=== PATIENT | female | born 1985 | race Caucasian/White ===

== ENCOUNTER 2023-08-17 17:51 | Outpatient (REF) | payer MEDICAID, SELFPAY ==
[2023-08-20 03:28] LABS: HPV mRNA E6/E7 rflx Not Detected (Not Detected)
== END 2023-08-17 17:52 | disposition home or self-care (01) ==
LOC: HO.CHCLNP 17:51
PROVIDERS: Visit Provider Advanced Practice Midwife
DX: Z01.419 Encounter for gynecological examination (general) (routine) without abnormal findings (principal)
CPT/HCPCS: 87624; 88142

== ENCOUNTER 2024-12-13 12:38 | Outpatient (REF) | payer MEDICAID, SELFPAY ==
[2024-12-13 14:33] LABS: MANUAL DIFF FLAG NO
[2024-12-13 15:25] LABS: Basophils Percent Auto 0.6 % (0-2); Eosinophils Absolute Auto 0.1 X10*3/uL (0.0-0.4); Eosinophils Percent Auto 1.7 % (0-4); Hemoglobin 16.7 g/dl (12.0-16.0); Imm Gran Abs Auto 0.03 X10*3/uL (0.00-0.03); Imm Gran Pct Auto 0.4 % (0.0-0.4); Lymphocytes Absolute Auto 1.9 X10*3/uL (1.2-4.9); Lymphocytes Percent Auto 26.6 % (20-40); Mean Corpuscular HGB Conc 35.5 g/dl (31.0-35.0); Mean Corpuscular Hemoglobin 31.5 pg (27.0-33.0); Mean Corpuscular Volume 88.7 fL (80.0-98.0); Mean Platelet Volume 10.9 fL (9.4-12.3); Monocytes Absolute Auto 0.5 X10*3/uL (0.1-1.2); Monocytes Percent Auto 6.7 % (2-11); Neutrophils Absolute Auto 4.6 x10*3/uL (2.0-8.3); Platelet Count 185 X10*3/uL (160-400); White Blood Count 7.1 X10*3/uL (4.8-10.8)
[2024-12-13 16:20] LABS: Albumin Level 3.9 g/dL (3.5-5.0); Alkaline Phosphatase 100 U/L (39-117); Anion Gap 10 (12-20); Aspartate Amino Transferase 94 U/L (5-31); Bilirubin Total 0.8 mg/dL (0.0-1.0); Blood Urea Nitrogen 6 mg/dL (9-16); Calcium 8.9 mg/dL (8.4-10.2); Carbon Dioxide 28 mmol/L (22-29); Chloride 104 mmol/L (96-108); Estimated Glomerular Filt Rate > 60; Glucose Random 298 mg/dL (60-115); Potassium 4.9 mmol/L (3.3-5.1); Sodium 137 mmol/L (135-145); Total Protein 7.3 g/dL (6.5-8.0)
[2024-12-13 16:32] LABS: Alanine Aminotransferase 112 U/L (0-31)
== END 2024-12-13 12:39 | disposition home or self-care (01) ==
LOC: HO.LAB 12:38
PROVIDERS: PCP Registered Nurse; Visit Provider Nurse Practitioner
DX: R11.2 Nausea with vomiting, unspecified (principal); K21.9 Gastro-esophageal reflux disease without esophagitis
CPT/HCPCS: 36415; 80053; 85025; 99212

== ENCOUNTER 2024-12-13 12:38 | Outpatient (AMB) | payer MEDICAID, SELFPAY ==
--- NOTE | 2024-12-13 12:51 | MHC.OFFVIS ---
Vital Signs 12/13/24 12:52 Height 5 ft 2 in Weight 185 lb 3.013 oz BMI 33.9 BP 119/76 Blood Pressure Location Rt brachial Position Sitting Pulse 58 Intake Visit Reasons: Gastroesophageal reflux disease (GERD) Intake Note: Patient in office today as a new patient for GERD. CC: Patient c/o indigestions, burping with foul smell, acid reflux for years, and nausea. Denies other GI symptoms today. Generation Technician Required: No Accompanied by: Self / Same As Patient Allergies Heparin Analogues [Heparin Agents] Allergy (Intermediate, Unverified 08/18/23 08:05) HIVES codeine [CODEINE] Allergy (Mild, Unverified 08/18/23 08:05) HIVES heparin Allergy (Unknown, Uncoded 08/18/23 08:05) hives tylenol with codeine Allergy (Unknown, Uncoded 08/18/23 08:05) hives HPI HPI Gastroesophageal reflux disease (GERD): Details: 39-year-old female here for initial evaluation of GERD. She is referred by [facility]. PMX Obesity Asthma Hepatitis C and opioid use disorder Anxiety/PTSD GERD Migraines Neuropathic pain Smoker Goiter * SURGICAL HISTORY * ALLERGIES Heparin - hives Tylenol with codeine - hives * MEDITECH LABS: none US of ABDOMEN from [facility] ESULT: US RUQ US RUQ Hx of Present Illness: abdominal pain nausea diarrhea; Reason: Other:; Abdominal Pain; Clinical Question(s): Cholecystitis COMPARISON: None. FINDINGS: Liver: Diffusely echogenic parenchyma. Liver is difficult to penetrate limiting evaluation for focal hepatic lesion. Focal fatty sparing is noted in the gallbladder fossa. Smooth hepatic contour. Main portal vein patent with normal hepatopetal direction of flow. Gallbladder: Mobile gallstone measuring 1.7 cm. Normal wall thickness. No pericholecystic fluid. Negative Lemos sign. Biliary Tree: No intrahepatic or extrahepatic bile duct dilation is identified. Common duct measures: 0.6 cm. Pancreas: No abnormality in the visualized portions of the pancreas. Right kidney: 12.0 cm in length. Normal parenchymal echotexture and thickness. No hydronephrosis, stone or mass. IMPRESSION: Echogenic liver likely representing hepatic steatosis. Cholelithiasis without acute cholecystitis. I have personally reviewed the images and I agree with this report. WSN: [id number] Ordering Physician: Yahaira Weathers TODAY'S VISIT She has had years of sever and sudden onset of nausea and at times all day vomiting. She also will have severe sulfur burps and farts and then she will have severe all day N/V. She also has some HB issues but the other syndeome will occur unevenly and unpredictably. She will have severe bout atleast twice a month. She is currently on pantoprazole and it has helped but she still will feels acid coming up my throat and she will have tyo take 3-4 of the pantoprazole. At times she has presented to the ER for this and they would just have her zofran with some relief. This all DID start when she was with her son 8 years ago. The sx have worsened over the past 2 years. She denies any abd pain or CIC/diarrhea. Her brother and father get the sulfur burps as well. She is unsure how they handle this as they do not speak much. Her mother and sister both have had choles and the patient had and US at [facility] that showed a 1.7cm gallstone. Will give zofran as temp measure, continues pantoprazole. Ordering HIDA, GES, barium swallow and HP stool along with basic labs. ROV next available. [facility] Surgical History History of section Family History Paternal Grandfather Lung cancer Prostate cancer Paternal Grandmother Lung cancer Paternal Uncle Prostate cancer Paternal Uncle Lung cancer Social History Alcohol intake: current Alcohol intake frequency: holidays/special occasions only Alcohol type: wine Patient Tobacco Use Status: Current everyday Tobacco user Cigarette Packs Per Day: 1 Substance Use Type: Marijuana Review of Systems Const Denies fatigue, Denies fever(s), Reports headache(s), Denies night sweats, Denies poor appetite and Denies weight loss ENT Reports Normal hearing present, Denies dental pain, Denies dysphagia, Reports headache(s), Denies hearing loss, Denies mouth pain, Denies odynophagia, Denies throat swelling, Denies tongue swelling and Reports other (Dentition adequate) Card Reports no additional complaints Resp Reports no additional complaints GI Details: Denies abdominal pain, Reports belching, Denies melena, Denies bloating, Denies hematochezia, Denies constipation, Denies GI cramping, Denies dysphagia, Denies excessive flatus, Denies early satiety, Reports heartburn, Denies diarrhea, Reports nausea, Denies odynophagia, Reports vomiting and Denies hematemesis Skin/Breast Denies pruritus, Denies lesions, Denies rash and Denies jaundice Neuro Reports Normal hearing present, Denies Abnormal speech present and Reports headache(s) Psych Reports anxiety Endo Denies fatigue Aller/Immun Denies throat swelling and Denies tongue swelling Physical Exam Vital Signs: Last Vital Signs Pulse 58 12/13/24 12:52 BP 119/76 12/13/24 12:52 BMI result Body Mass Index 33.9 Const General: cooperative, no acute distress, well developed and well groomed Nutritional Appearance: well nourished and obese Orientation/consciousness: oriented to person, oriented to place and oriented to time Limitations: No language barrier HEENT Head: Yes normocephalic and Yes atraumatic Eyes General: appearance normal, both eyes and all related structures Pupils: Equal, round and reactive pupils present Neck Neck: Yes normal visual inspection and Yes no lymphadenopathy Thyroid: diffusely enlarged Resp Effort & Inspection: normal respiratory effort and able to speak in complete sentences Auscultation: clear to auscultation bilaterally Cardio Rate: regular rate Rhythm: regular rhythm Heart sounds: Normal, physiologic split S2 sound present Peripheral pulses: radial pulses present and posterior tibial pulses present GI Inspection: No distended, Yes Abdominal panniculus present, Yes obesity and Yes striae Palpation (GI): Soft to palpation, Tenderness to palpation present (GI) in the RUQ, no guarding, not rigid and No hepatosplenomegaly present Percussion: Yes normal to percussion Auscultation: normal bowel sounds Rectal Exam - Female: deferred Skin General skin exam: no rashes or lesions noted, turgor normal, skin not dry, no jaundice, No spider nevi and no striae Rashes: no rashes Nails: normal Neuro General: oriented to person, oriented to place and oriented to time Cranial nerves: Yes Equal, round and reactive pupils present and Yes Normal hearing present Speech: No Abnormal speech present Extrem General: Yes normal to inspection, No clubbing, No cyanosis and No edema Psych Appearance: grossly normal and well kempt Mental Status: mental status grossly normal Speech and movement: Normal speech and movement present Affect: normal affect Attitude: cooperative Thought process: Normal thought process present and not confabulating Thought content: Normal thought content present Insight: Limited insight present (Psych) Judgement: Limited judgement present (Psych) Assessment & Plan Assessment & Plan (1) GERD (gastroesophageal reflux disease): Code(s): K21.9 - Gastro-esophageal reflux disease without esophagitis Category: Medical (2) Nausea and vomiting: Code(s): R11.2 - Nausea with vomiting, unspecified Category: Medical Plan She has had years of sever and sudden onset of nausea and at times all day vomiting. She also will have severe sulfur burps and farts and then she will have severe all day N/V. She also has some HB issues but the other syndeome will occur unevenly and unpredictably. She will have severe bout atleast twice a month. She is currently on pantoprazole and it has helped but she still will feels acid coming up my throat and she will have tyo take 3-4 of the pantoprazole. At times she has presented to the ER for this and they would just have her zofran with some relief. This all DID start when she was with her son 8 years ago. The sx have worsened over the past 2 years. She denies any abd pain or CIC/diarrhea. Her brother and father get the sulfur burps as well. She is unsure how they handle this as they do not speak much. Her mother and sister both have had choles and the patient had and US at [facility] that showed a 1.7cm gallstone. Will give zofran as temp measure, continues pantoprazole. Ordering HIDA, GES, barium swallow and HP stool along with basic labs. ROV next available. Orders: Orders Complete Blood Count Auto Diff Today K21.9 - Gastro-esophageal reflux disease without esophagitis, R11.2 - Nausea with vomiting, unspecified Comprehensive Met. Panel Today K21.9 - Gastro-esophageal reflux disease without esophagitis, R11.2 - Nausea with vomiting, unspecified NM hepatobiliary w pharm Today K21.9 - Gastro-esophageal reflux disease without esophagitis, R11.2 - Nausea with vomiting, unspecified NM gastric emptying study Today K21.9 - Gastro-esophageal reflux disease without esophagitis, R11.2 - Nausea with vomiting, unspecified FL barium swallow Today K21.9 - Gastro-esophageal reflux disease without esophagitis, R11.2 - Nausea with vomiting, unspecified H pylori Ag Stool Today K21.9 - Gastro-esophageal reflux disease without esophagitis, R11.2 - Nausea with vomiting, unspecified Medications: New ondansetron 4 mg PO BID-TID PRN 14 tabs 0RF nausea and vomiting R11.2 - Nausea with vomiting, unspecified Coding Level of Care Code New Pt Level 3 (52264) Diagnoses GERD (gastroesophageal reflux disease) K21.9 Nausea and vomiting R11.2
[2024-12-13 12:52] VITALS: BP 119/76; PULSE 58; BMI 33.9
--- OUTSIDE RECORDS SUMMARY | 2024-12-13 14:56 | XMS_ITS | Encounter Summary ---
Author Organization [employer] Address [address] [place] [address] [address] [place] [address] Care Team Providers Care Supervisory Air Intercept Controller Name Role Phone Irish Sepulveda Primary Care Provider Encounter Details Date Type Department Care Team ([facility] st Contact Info) Description 12/22/2023 Orders Only [facility] [address] [place], [place] [phone] Irish Sepulveda FNP [address] [place] [address] Gastroesophageal reflux disease, unspecified whether esophagitis present Social History Tobacco Use Types Packs/Day Years Used Date Smoking Tobacco: Every Day Cigarettes Smokeless Tobacco: Former Alcohol Use Standard Drinks/Week Comments Not Asked 0 (1 standard drink = 0.6 oz pur e alcohol) Depression Answer Date Recorded Patient Health Questionnaire-9 Score 10 07/30/2023 Patient Health Questionnaire-9 Score 10 07/30/2023 Last PHQ-9: Questionnaire Data Not on file 1 09/29/2022 Housing Stability Answer Date Recorded What is your housing situation today? I have gabriel stephens 07/31/[address] you li ve. Do you have problems with any of the following? Pests such as bugs, ants, or mice;Mold;Water leaks 07/31/2023 Food Insecurity Answer Date Recorded Within the past 12 months, y ou worried that your food would run out before you got money to buy more: Sometimes True 2022 Within the past 12 months,th e food you bought just didn't last and you didn't have enough money to get more: Sometimes True 07/30/2023 Transportation Answer Date Recorded In the past 12 months, has l ack of transportation kept you from medical appts, meetings, work or from getting things needed for daily living? Yes, it has kept me from medical appointments or getting medications. 07/31/2023 Utilities Answer Date Recorded In the past 12 months, has t he electric, gas, oil or water company threatened to shut off services in your home? I am not sure 07/30/2023 Depression Answer Date Recorded Patient Health Questionnaire-2 Score 2 07/30/2023 Comments No Sex and Gender Information Value Date Recorded Sex Assigned at Female 07/20/2022 10:31 AM EDT Legal Sex Female 10:31 AM EDT Gender Identity Female 07/20/2022 10:31 AM EDT Sexual Orientation Straight 07/20/2022 10 :31 AM EDT documented as of this encounter Plan of Treatment Not on file documented as of this encounter Visit Diagnoses Diagnosis Gastroesophageal reflux disease, unspecified whether esophagitis present documented in this encounter Additional Health Concerns Assessment Noted Time PHQ-9 Depression Total Score: 10 023 11:21 AM EST documented as of this encounter Care Teams Supervisory Air Intercept Controller Relationship Specialty Start Date End Date Irish Sepulveda FNP [address] [place] [address] PCP - General Family Medicine 11/12/21 documented as of this encounter
--- OUTSIDE RECORDS SUMMARY | 2024-12-13 14:56 | XMS_ITS | Encounter Summary ---
Author Organization [employer] Address [address] [place] [address] [address] [address] Care Team Providers Care Drying And Winding Supervisor Name Role Phone Irish Sepulveda Primary Care Provider [phone] Encounter Details Date Type Department Care Team ([facility] st Contact Info) Description 03/11/2023 Orders Only [facility] MEDICINE [address] [place], [place] [phone] Marimar Bae LPN Social History Tobacco Use Types Packs/Day Years Used Date Smoking Tobacco: Never Assessed Comments Unknown Sex and Gender Information Value Date Recorded Sex Assigned at Female 07/20/2022 10:31 AM EDT Legal Sex Female 10:31 AM EDT Gender Identity Female 07/20/2022 10:31 AM EDT Sexual Orientation Straight 07/20/2022 10 :31 AM EDT documented as of this encounter Plan of Treatment Not on file documented as of this encounter Visit Diagnoses Not on filedocumented in this encounter Care Teams Drying And Winding Supervisor Relationship Specialty Start Date End Date Irish Sepulveda FNP [address] [place] [address] PCP - General Family Medicine 11/12/21 documented as of this encounter
--- OUTSIDE RECORDS SUMMARY | 2024-12-13 14:56 | XMS_ITS | Encounter Summary ---
Author Organization [employer] Address [address] [facility] 7t [place] [address] Care Team Providers Care Toxicologist Name Role Phone Irish Sepulveda JANI Primary Care Provider [phone] Encounter Details Date Type Department Care Team ([facility] st Contact Info) Description 12/01/2024 Population Health Risk Score [facility] ([facility]) Department [address] [place] [phone] Provider, Population Health Generic Social History Tobacco Use Types Packs/Day Years Used Date Smoking Tobacco: Every Day Cigarettes Passive Smoke Exposure: Current Smokeless Tobacco: Former Alcohol Use Standard Drinks/Week Comments Not Asked 0 (1 standard drink = 0.6 oz pur e alcohol) Depression Answer Date Recorded Patient Health Questionnaire-9 Score 14 07/20/2024 Patient Health Questionnaire-9 Score 14 07/20/2024 Last PHQ-9: Questionnaire Data Not on file 1 Housing Stability Answer Date Recorded What is [...] Answer Date Recorded Patient Health Questionnaire-2 Score 3 07/20/2024 Comments No Sex and Gender Information Value Date Recorded Sex Assigned at Female 07/20/2022 10:31 AM EDT Legal Sex Female 10:31 AM EDT Gender Identity Female 07/20/2022 10:31 AM EDT Sexual Orientation Straight 07/20/2022 10 :31 AM EDT documented as of this encounter Plan of Treatment Not on file documented as of this encounter Visit Diagnoses Not on filedocumented in this encounter Additional Health Concerns Assessment Noted Time PHQ-9 Depression Total Score: 14 024 1:30 PM EDT documented as of this encounter Care Teams Toxicologist Relationship Specialty Start Date End Date Irish Sepulveda FNP [address] [place] [address] PCP - General Family Medicine 11/12/21 documented as of this encounter
--- OUTSIDE RECORDS SUMMARY | 2024-12-13 14:56 | XMS_ITS | Encounter Summary ---
Author Organization [employer] Address [address] [place] [address] Care Team Providers Care Inpatient Services Rn Name Role Phone Irish Sepulveda Primary Care Provider [phone] Reason for Visit * Reason Onset Date Comments Referral 02/16/2024 Encounter Details Date Type Department Care Team ([facility] st Contact Info) Description 02/16/2024 Telephone [facility] MEDICINE [address] [place] [address] Irish Sepulveda FNP [address] [place] [address] Referral Social History Tobacco Use Types Packs/Day Years [...] is your housing situation today? I have gabrielrand stephens 07/31/[address] you [...] AM EDT documented as of this encounter Miscellaneous Notes * Telephone Encounter - Wing Carmelita RN - 02/17/2024 11:48 AM EDT Tc to pt regarding gastro referral, unable to reach pt. Left message for pt to call back. * Telephone Encounter - Teddy Roque - 02/16/2024 9:09 AM EDT Tc from pt requesting a [employer] referral to have gallbladder removed. Pt had an ED visit2 years ago where she was diagnosed with gallstones, from there pt was referred to gastro to have agallbladder removal but pt hesitated to follow through. Due to some recent concerns pt is now re considering gallbladder removal. If any question please contact pt at [phone]. documented in this encounter Plan of Treatment Not on file documented as of this encounter Visit Diagnoses Not on filedocumented in this encounter Additional Health Concerns Assessment Noted Time PHQ-9 Depression Total Score: 10 023 11:21 AM EST documented as of this encounter Care Teams Inpatient Services Rn Relationship Specialty Start Date End Date Irish Sepulveda FNP [address] [place] [address] PCP - General Family Medicine 11/12/21 documented as of this encounter
--- OUTSIDE RECORDS SUMMARY | 2024-12-13 14:56 | XMS_ITS | Encounter Summary ---
Author Organization [employer] Address [address] [place] [address] Care Team Providers Care Juice Standardizer Name Role Phone Irish Sepulveda Primary Care Provider Reason for Visit * Reason Comments Med Refill Encounter Details Date Type Department Care Team ([facility] st Contact Info) Description 11/30/2022 Refill [facility] MEDICINE [address] [place] [address] Irish Sepulveda FNP [address] [place] [address] Gastroesophageal reflux disease, unspecified whether esophagitis present [...] whether esophagitis present documented in this encounter Care Teams Juice Standardizer Relationship Specialty Start Date End Date Irish Sepulveda FNP [address] [place] [address] PCP - General Family Medicine 11/12/21 documented as of this encounter
--- OUTSIDE RECORDS SUMMARY | 2024-12-13 14:56 | XMS_ITS | Encounter Summary ---
Author Organization [employer] Address [address] [place] [address] [address] Care Team Providers Care Materials Scientist Name Role Phone Irish Sepulveda Primary Care Provider [phone] Encounter Details Date Type Department Care Team ([facility] st Contact Info) Description 01/27/2023 Orders Only [facility] MEDICINE [address] [place], [place] [phone] Marimar Bae LPN Social History Tobacco Use [...] on filedocumented in this encounter Care Teams Materials Scientist Relationship Specialty Start Date End Date Irish Sepulveda FNP [address] [place] [address] PCP - General Family Medicine 11/12/21 documented as of this encounter
--- OUTSIDE RECORDS SUMMARY | 2024-12-13 14:56 | XMS_ITS | Encounter Summary ---
Author Organization [employer] Address [address] [place] [address] 7[place], [place] [address] Care Team Providers Care Television Program Director Name Role Phone Irish Sepulveda Primary Care Provider [phone] Reason for Visit * Reason Onset Date Comments US Order 06/21/2024 Encounter Details Date Type Department Care Team ([facility] Contact Info) Description 06/21/2024 Telephone [facility] MEDICINE [address] [place] [address] Irish Sepulveda FNP [address] [place] [address] US Order Social History Tobacco Use Types Packs/Day Years [...] encounter Miscellaneous Notes * Telephone Encounter - Sandra Ma - 06/22/2024 10:59 AM EDT Tc from Mansi with [facility] calling in regards US order of the abdomen. Stating it is missing pcp signature. They're requesting for a order to be resent with signature. If any questions you can contact Mansi at [phone]. * Telephone Encounter - Teddy Roque - 06/21/2024 10:03 AM EDT Tc from Edilberto with [facility] calling in regards US order of the abdomen stating it is missing pcp signature. They're requesting for a order to be resent with signature. If any questions you can contact Edilberto at [phone]. documented in this encounter Plan of Treatment Not on file documented as of this encounter Visit Diagnoses Not on filedocumented in this encounter Additional Health Concerns Assessment Noted Time PHQ-9 Depression Total Score: 10 023 11:21 AM EST documented as of this encounter Care Teams Television Program Director Relationship Specialty Start Date End Date Irish Sepulveda FNP [address] [place] [address] PCP - General Family Medicine 11/12/21 documented as of this encounter
--- OUTSIDE RECORDS SUMMARY | 2024-12-13 14:56 | XMS_ITS | Encounter Summary ---
Author Organization [employer] Address [address] [place] [address] Care Team Providers Care Aerial Crop Duster Name Role Phone Irish Sepulveda Primary Care Provider [phone] Reason for Visit * Reason Onset Date Comments Appointment Request 05/05/2024 Encounter Details Date Type Department Care Team ([facility] Contact Info) Description 05/05/2024 Telephone [facility] MEDICINE [address] [place] [address] Irish Sepulveda FNP [address] [place] [address] Appointment Request Social History Tobacco Use Types Packs/Day Years [...] Telephone Encounter - Wing Carmelita RN - 05/08/2024 3:28 PM EDT Tc to pt to reschedule same day appt. Unable to reach pt, left message for pt to call [facility] office. * Telephone Encounter - Teddy Roque - 05/05/2024 9:50 AM EDT Tc from pt requesting to reschedule todays sick onsite visit. Please contact pt at [phone]. documented in this encounter Plan of Treatment Not on file documented as of this encounter Visit Diagnoses Not on filedocumented in this encounter Additional Health Concerns Assessment Noted Time PHQ-9 Depression Total Score: 10 023 11:21 AM EST documented as of this encounter Care Teams Aerial Crop Duster Relationship Specialty Start Date End Date Irish Sepulveda FNP [address] [place] [address] PCP - General Family Medicine 11/12/21 documented as of this encounter
--- OUTSIDE RECORDS SUMMARY | 2024-12-13 14:56 | XMS_ITS | Encounter Summary ---
Author Organization [employer] Address [address] [place] [address] [place] [address] Care Team Providers Care Flight Controls Engineer Name Role Phone Irish Sepulveda Primary Care Provider [phone] Reason for Visit * Reason Onset Date Comments US Order 06/20/2024 Encounter Details Date Type Department Care Team ([facility] Contact Info) Description 06/20/2024 Telephone [facility] MEDICINE [address] [place] [address] Irish Sepulveda FNP [address] [place] [address] US Order Social History Tobacco Use Types [...] encounter Miscellaneous Notes * Telephone Encounter - Harpal Pacheco - 06/20/2024 10:08 AM EDT Tc arelis Egan at [facility] calling in regards to the order of the US of the abdomen statesit was received without the PCP signature documented in this encounter Plan of Treatment Not on file documented as of this encounter Visit Diagnoses Not on filedocumented in this encounter Additional Health Concerns Assessment Noted Time PHQ-9 Depression Total Score: 10 023 11:21 AM EST documented as of this encounter Care Teams Flight Controls Engineer Relationship Specialty Start Date End Date Irish Sepulveda FNP [address] [place] [address] PCP - General Family Medicine 11/12/21 documented as of this encounter
--- OUTSIDE RECORDS SUMMARY | 2024-12-13 14:56 | XMS_ITS | Encounter Summary ---
Author Organization [employer] Address [address] [place] [address] Care Team Providers Care Refrigeration Mechanic Name Role Phone Irish Sepulveda Primary Care Provider [phone] Reason for Visit * Reason Onset Date Comments Med Refill 10/13/2024 Encounter Details Date Type Department Care Team ([facility] Contact Info) Description 10/13/2024 Telephone [facility] MED & PEDS [address] [place], [place] [phone] Irish Sepulveda FNP [address] [place] [address] Med Refill Social History Tobacco Use Types Packs/Day Years [...] encounter Miscellaneous Notes * Telephone Encounter - Julisa Campbell LPN - 10/13/2024 10:22 AM EST Medication isn't prescribed by PCP. * Telephone Encounter - Sandra Ma - 10/13/2024 10:16 AM EST TC from pt requesting medication refill. Medications needing refill : lurasidone (Latuda) 40 MG tablet To be sent to: [facility] - [place], [place] - [address] [facility] documented in this encounter Plan of Treatment Not on file documented as of this encounter Visit Diagnoses Not on filedocumented in this encounter Additional Health Concerns Assessment Noted Time PHQ-9 Depression Total Score: 14 024 1:30 PM EDT documented as of this encounter Care Teams Refrigeration Mechanic Relationship Specialty Start Date End Date Irish Sepulveda FNP [address] [place] [address] PCP - General Family Medicine 11/12/21 documented as of this encounter
--- OUTSIDE RECORDS SUMMARY | 2024-12-13 14:56 | XMS_ITS | Encounter Summary ---
Author Organization [employer] Address [address] [place] [address] [place] [address] Care Team Providers Care Credit Charge Authorizer Name Role Phone AlejandraIrish grimes JANI Primary Care Provider [phone] Reason for Visit * Reason Onset Date Comments appt extraction 11/09/2023 Encounter Details Date Type Department Care Team ([facility] st Contact Info) Description 11/09/2023 Telephone [facility] ADULT DENTAL [address] [place] [address] Chad Monsivais DMD [address] [place] [address] appt extraction Social History Tobacco Use Types Packs/Day Years [...] encounter Miscellaneous Notes * Telephone Encounter - Tana Amato - 11/09/2023 9:31 AM EST Patient is looking to come in for a ext appt that was not requested. It is on tx plan but not active rquested and patient states that tooth has chipped more and rubbing up against her tongue causing discomfort. documented in this encounter Plan of Treatment Not on file documented as of this encounter Visit Diagnoses Not on filedocumented in this encounter Additional Health Concerns Assessment Noted Time PHQ-9 Depression Total Score: 10 023 11:21 AM EST documented as of this encounter Care Teams Credit Charge Authorizer Relationship Specialty Start Date End Date Irish Sepulveda FNP [address] [place] [address] PCP - General Family Medicine 11/12/21 documented as of this encounter
--- OUTSIDE RECORDS SUMMARY | 2024-12-13 14:56 | XMS_ITS | Encounter Summary ---
Author Organization [employer] Address [address] [place] [address] Care Team Providers Care Track Oiler Name Role Phone Irish Sepulveda Primary Care Provider [phone] Reason for Visit * Reason Onset Date Comments Chart Prep 11/30/2024 Encounter Details Date Type Department Care Team ([facility] Contact Info) Description 11/30/2024 Telephone [facility] MED & PEDS [address] [place], [place] [phone] Irish Sepulveda FNP [address] [place] [address] Chart Prep Social History Tobacco Use Types Packs/Day Years [...] encounter Miscellaneous Notes * Telephone Encounter - Sherman Bliss [place] - 11/30/2024 8:57 AM EDT Chart Prep Labs: not done Images: not done Vaccines due: yes Referrals: complete Screenings: n/a Overdue care gaps: Sbirt, SDOH, PHQ-9 documented in this encounter Plan of Treatment Not on file documented as of this encounter Visit Diagnoses Not on filedocumented in this encounter Additional Health Concerns Assessment Noted Time PHQ-9 Depression Total Score: 14 024 1:30 PM EDT documented as of this encounter Care Teams Track Oiler Relationship Specialty Start Date End Date Irish Sepulveda FNP [address] [place] [address] PCP - General Family Medicine 11/12/21 documented as of this encounter
--- OUTSIDE RECORDS SUMMARY | 2024-12-13 14:56 | XMS_ITS | Clinical Summary ---
Author Organization [employer] Address [address] [place] [address] [address] [place] [address] Care Team Providers Care Counter Pocket Sewer Name Role Phone Irish Sepulveda JANI Primary Care Provider [phone] Allergies Active Allergy Reactions Criticality Noted Date Comments Acetaminophen Hives 12/10/2016 Acetaminophen-Codeine 02/10/2023 Codeine Hives 12/10/2016 Heparin Hives 12/10/2016 Other reaction(s): itching, hives Medications * This document contains information received from the source organization and may not represent a complete record from that organization. Sublocade 300 MG/1.5ML injection 3 Active albuterol (Ventolin HFA) 108 (90 Base) MCG/ACT inhaler inhale 2 puff by inhalation route every 4 - 6 hours as needed 18 g 11 3 Active triamcinolone (Kenalog) 0.1 % creamIndication s:Other atopic dermatitis Mix 80g tube of Triamcinolone 0.1% cream with 16oz jar of CeraVe cream. Apply 1-2 times per day after shower or bath from the neck down (not on face) 80 g 1 3 Active propranolol (Inderal) 10 MG tablet Active amphetamine-dex troamphetamine XR (Adderall XR) 30 MG 24 hr capsule 2 Active lidocaine (Lidoderm) 5 % patch APPLY 1 PATCH BY TRANSDERMAL ROUTE EVERY DAY (MAY WEAR UP TO 12HOURS.) 30 patch 3 3 Active pantoprazole (ProtoNix) 40 MG EC tabletIndicatio ns:Gastroesopha geal reflux disease, unspecified whether esophagitis present Take 1 tablet (40mg) by mouth daily 90 tablet 2 4 Active norethindrone (Micronor) 0.35 MG tablet 1 tablet by mouth at same time each day 90 tablet 3 5 Active lurasidone (Latuda) 60 MG tablet Take 1 tablet (60 mg) by mouth Once daily. 90 tablet 5 Active busPIRone (Buspar) 7.5 MG tablet TAKE 1 TABLET (7.5 MG) BY MOUTH 2 TIMES DAILY. 60 tablet 5 Active QUEtiapine (SEROquel) 100 MG tablet TAKE 1 TABLET (100 MG) BY MOUTH ONCE DAILY. 30 tablet 5 Active gabapentin (Neurontin) 300 MG capsuleIndicati ons:Mood disorder (CMS/HCC) TAKE 1 CAPSULE (300 MG) BY MOUTH 2 TIMES DAILY. 60 capsule 5 Active Active Problems Problem Noted Date Diagnosed Date Elevated LFTs 09/29/2024 Overview (09/29/2024): Lab Results Component Value Date HEPBSURFACAG Negative 09/11/2024 HEPBSURFAB REACTIVE 09/11/2024 HEPBCOREAB Nonreactive 09/11/2024 Lab Results Component Value Date AST 63 (H) 09/11/2024 ALT 71 (H) 09/11/2024 TOTPROTEIN 7.4 09/11/2024 ALB 3.8 09/11/2024 ALP 83 09/11/2024 TOTALBILIRUB 0.4 09/11/2024 - Hepatitis: Hep B immune, Hep C negative - Lifestyle interventions encouraged Assessment & Plan (09/29/2024 12:37 PM EST): Plan to re-check labs Other hyperlipidemia 09/29/2024 Overview (09/29/2024): Lab Results Component Value Date CHOL 187 09/11/2024 TRIG 269 (H) 09/11/2024 HDL 28 (L) 09/11/2024 LDLCHOLCAL 106 (H) 09/11/2024 -continue lifestyle modification Assessment & Plan (09/29/2024 12:38 PM EST): Reviewed results with Kristal today. Lifestyle interventions encouraged. Plan to repeat labs fasting. Mood disorder 06/18/2024 Assessment & Plan (09/17/2024 9:23 PM EST): Hx of ADHD, MDD, and PTSD. Previously following with psych provider and team through [facility]. However, psych prescriber leaving, and in need of establishing with new provider. Bridge rx through PCP, scheduled for initial consult with [facility] Psych CHEMOTHERAPIST No acute concerns, mental health stable Assessment & Plan (06/18/2024 3:52 PM EDT): Hx of ADHD, MDD, and PTSD. Previously following with psych provider and team through [facility]. However, psych prescriber leaving, and in need of establishing with new provider. Reports has 3 months of medications, but may need bridge of some of medications around Aug 2024 (see HPI) No acute concerns, mental health stable Referral to [facility] BH team for BE with referral to psych prescriber - possibly telehealth 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 Assessment & Plan (12/28/2023 7:17 PM EDT): Diffuse enlargement, denies symptoms, Labs and ultrasound ordered Cigarette smoker 08/19/2023 Overview (08/19/2023): -Cigg/day: 5 -Encouraged smoking cessation resources such as pharmacomtherapy, [facility] smoking cessation group, and [facility] pharmacy smoking cessation clinic -Currently following with Sheron for assistance with smoking cessation Assessment & Plan (12/28/2023 7:17 PM EDT): Actively cutting back, has patches, declines further supports today Healthcare maintenance 07/30/2023 Assessment & Plan (09/17/2024 9:29 PM EST): -Optometry: referral to [facility] Eye Care previously placed -Pap: NILM, HPV neg on 08/17/23. Next due: 2027 -PE: due - Routine labs ordered today including asymptomatic STI screening - Refilled POP for contraception. Reviewed med safety and SE Assessment & Plan (07/31/2023 11:09 AM EST): -Optometry: referral to [facility] Eye Care previously placed -Pap: Pt reports it has been > 5 years since last pap. Missed last pap appt, scheduled with [facility] CNM -STI: previously ordered, pending -Dental: discuss at follow up -Vaccines: flu administered today Attention deficit hyperactiv ity disorder (ADHD), predominantly inattentive type 02/10/2023 Class 1 obesity 02/10/2023 Intermittent asthma 11/13/2021 Overview (02/10/2023): given plan,advised annual flu vacc Posttraumatic stress disorder 11/13/2021 Neuropathic pain 08/26/2017 Gastroesophageal reflux disease 07/30/2017 Overview (09/17/2024): Experiencing residual symptoms despite tx PPI - pantoprazole 40mg daily (sometimes BID) Referral to GI placed: 08/16/23. Resent on 07/31/24. Initial consult scheduled: November 2024 Assessment & Plan (09/17/2024 9:22 PM EST): Reviewed lifestyle interventions to decrease symptoms including avoid triggering foods (such as coffee, chocolate, fatty foods), tobacco cessation, eating 2-3 hours before lying down, and weight loss. Assessment & Plan (06/18/2024 3:57 PM EDT): Reviewed lifestyle interventions to decrease symptoms including avoid triggering foods (such as coffee, chocolate, fatty foods), tobacco cessation, eating 2-3 hours before lying down, and weight loss. - Referral letter provided today for pt to schedule initial consult visit Assessment & Plan (08/19/2023 7:00 PM EST): Reviewed lifestyle interventions to decrease symptoms including avoid triggering foods (such as coffee, chocolate, fatty foods), tobacco cessation, eating 2-3 hours before lying down, and weight loss. Abnormal cervical Papanicolaou smear 12/10/2016 Anxiety 12/10/2016 History of hepatitis C 12/10/2016 Depressive disorder 12/10/2016 Overview (02/10/2023): referred counseling Opioid dependence on agonist therapy 12/10/2016 Migraine 12/10/2016 Encounters * This document contains information received from the source organization and may not represent a complete record from that organization. Date Type Department Care Team Description 12/01/2024 Population Health Risk Score [facility] ([facility]) Department [address] [phone] Provider, Population Health Generic 11/30/2024 Telephone [facility] MED & PEDS [address] [place] [address] Irish Sepulveda FNP Chart Prep 11/06/2024 Refill [facility] MEDICINE [address] [place] [address] Irish Sepulveda FNP Mood disorder (CMS/HCC) 10/25/2024 Refill [facility] MED & PEDS [address] [place] [address] Irish Sepulveda FNP 10/13/2024 Telephone [facility] MED & PEDS [address] [place] [address] Irish Sepulveda FNP Med Refill 10/04/2024 Telephone [facility] MED & PEDS [address] [place] [address] Irish Sepulveda FNP TC: Abd US Results 10/02/2024 1:15 PM EST Procedure Visit [facility] MEDICINE [address] [place] [address] Eleni Baumann CNM Visit for pelvic exam (Primary Dx); Surveillance of previously prescribed contraceptive pill 10/02/2024 Travel 09/29/2024 11:15 AM EST Office Visit [facility] MED & PEDS [address] [place] [address] Irish Sepulveda FNP Hyperglycemia (Primary Dx); Encounter for immunization; Elevated LFTs; Other hyperlipidemia 09/29/2024 Travel 09/25/2024 Telephone [facility] MED & PEDS [address] [place] [address] Sherman Centeno [place] Chart Prep 09/22/2024 Orders Only [facility] ADULT DENTAL [address] [place] [address] Chad Monsivais, DMD 09/15/2024 Telephone [facility] MEDICINE [address] [place] [address] Ruth Paz, RN Results 09/15/2024 Telephone [facility] MEDICINE [address] [place] [address] Irish Sepulveda FNP 09/14/2024 Orders Only [facility] MED & PEDS [address] [place], [place] [phone] Irish Sepulveda, JANI Healthcare maintenance (Primary Dx) from Last 3 Months Immunizations Name Administration Dates Next Due Influenza Injectable Quadriv alant Preservative Free IIV4 MDCK 09/06/2020,07/14/2017 Influenza Whole 10/21/2010 Influenza injectable quadriv alent IIV4 with preservative 05/13/2019 Influenza injectable quadriv alent preservative free 07/30/2023,07/15/2022,06/07/2016 Influenza, seasonal, injecta ble, preservative free 09/29/2024 Pneumococcal Conjugate PCV 20 08/16/2023 Pneumococcal Polysaccharide PPSV23 10/27/2016 Tdap 07/15/2022,09/18/2016 Family History Medical History Relation Name Comments Testicular cancer Paternal Grandfather Relation Name Status Comments Paternal Grandfather Social History Tobacco Use Types Packs/Day Years Used Date Smoking Tobacco: Every Day Cigarettes Passive Smoke Exposure: Current Smokeless Tobacco: Former Tobacco Cessation:Ready to Q uit: Not Asked; Counseling Given: Not Answered Alcohol Use Standard Drinks/Week Comments Not Asked [...] the past 12 months, has t he [employer] gas, oil or water company threatened to [...] Orientation Straight 07/20/2022 10 :31 AM EDT Last Filed Vital Signs Vital Sign Reading Time Taken Comments Blood Pressure 107/66 10/02/2024 1:10 PM EST Pulse 86 10/02/2024 1:10 PM EST Temperature 36.3 ??C (97.3 ??F) 10/02/2024 1:10 PM ES T Respiratory Rate 18 10/02/2024 1:10 PM EST Oxygen Saturation 97% 10/02/2024 1:10 PM EST Inhaled Oxygen Concentration - - Weight 87.1 kg (192 lb) 10/02/2024 1:10 PM EST Height 157.5 cm (5' 2 ) 10/02/2024 1:10 PM EST Body Mass Index 35.12 10/02/2024 1:10 PM EST Plan of Treatment Health Maintenance Due Date Last Done Comments Dental Oral Exam 1985 Dental Prophylaxis 1985 Dental X-Ray: Full Mouth 1985 Alcohol/Substance Use Screening 1997 Hepatitis A Vaccines (1 of 2 - Risk 2-dose series) 01/11/2004 SDOH Screening 07/30/2024 07/30/2023 Dental X-Ray: Bitewings 08/24/2024 08/23/2023 Depression Monitoring (PHQ-9) 01/17/2025 07/20/2024, 07/20/2024 Depression Screening 07/20/2025 07/20/2024, 07/20/20 24 COVID-19 Vaccine ( season) 2025 12/26/2021, 12/03/2021 Postponed from 05/21/2024 (Patient Refused) Family Planning (PISQ) 10/02/2025 10/02/2024 Tobacco Screening 10/02/2025 10/02/2024 Cervical Cancer Screening 08/17/2028 HPV/Cotest 08/17/2028 08/17/2023 Pap Smear 08/17/2028 08/17/2023 Lipid Panel 09/11/2029 09/11/2024 DTaP/Tdap/Td Vaccines (3 - Td or Tdap) 07/15/2032 07/15/2022, 09/18/2016 Zoster Vaccines (1 of 2) 2035 RSV Patients and Patients Aged 60 years or older (1 - 1-dose 75+ series) 01/11/2060 Pneumococcal Vaccine: Pediatrics (0 to 5 Years) and At-Risk Patients (6 to 49) Years) Completed 08/16/2023, 10/27/2016 HIV Screening Completed 09/11/2024 Influenza Vaccine Completed 09/29/2024, , 07/15/2022, Additional history exists HIB Vaccines Aged Out No longer eligi ble based on patient's age to complete this topic HPV Vaccines Aged Out No longer eligi ble based on patient's age to complete this topic Hepatitis B Vaccines Discontinued IPV Vaccines Aged Out No longer eligi ble based on patient's age to complete this topic Meningococcal Vaccine Aged Out No la nena new eligible based on patient's age to complete this topic RSV under 20 months Aged Out No longe r eligible based on patient's age to complete this topic Rotavirus Vaccines Aged Out No longer eligible based on patient's age to complete this topic Procedures Procedure Name Priority Date/Time Associated Diagnosis Comments HIV 1/2 ANTIGEN/ANTIBODY, FOURTH GENERATION W/RFL Routine 09/11/2024 11:53 AM EST Healthcare maintenance LIPID PANEL, STANDARD Routine 09/11/2024 11:53 AM EST Healthcare maintenance BITEWING - SINGLE RADIOGRAPHIC IMAGE Routine 08/23/2023 3:30 PM EST Necrosis of dental pulp HPV MRNA E6/E7 REFLEX TO HPV 16, 18/45 Routine 08/17/2023 1:41 PM EST PAP SMEAR Routine 08/17/2023 1:41 PM EST from Last 3 Months or Most Recently Relevant to Health Maintenance Results * HIV-1/2 Antigen and Antibodies, Fourth Generation, with Reflexes (09/11/2024 11:53 AM EST) HIV AB/AG Nonreactive Nonreactive [facility] Comment:HIV-1 p24 Ag and/or HIV-1/HIV-2 Ab not detected.A test result that is nonreactive does not exclude thepossibility of exposure to or infection with HIV-1 and/orHIV-2. Nonreactive results in this assay for individualswith prior exposure to HIV-1 and/or HIV-2 may be due toantigen and antibody levels that are below the limit ofdetection of this assay.The [employer] HIV Ag/Ab Combo assay result andsupplemental assay results should be interpreted inconjunction with the patient's clinical presentation,history and other laboratory results. If the results areinconsistent with clinical evidence, additional testing issuggested to confirm the result. Blood Venous blood specimen / Unknown 09/11/2024 11:53 AM EST 09/11/2024 3:01 PM EST us Irish Sepulveda GEOLOGICAL DRAFTER LAB BLOOD ORDERABLES Final Res ult [facility] [address] [place] [address] [phone] * (ABNORMAL) Lipid Panel, Standard (09/11/2024 11:53 AM EST) Triglycerides 269(H) <150 mg/dL [facility] Comment:Desirable Triglyceri de: less than 150 mg/dLBorderline High Triglyceride 150-199 mg/dLHigh Triglyceride: 200-499 mg/dLVery High Triglyceride: greater than or equal to 5OO mg/dL Cholesterol 187 <200 mg/dL [facility] Comment:Desirable Cholestero l: less than 200 mg/dLBorderline High Cholesterol: 200-239 mg/dLHigh Cholesterol: greater than 239 mg/dL LDL Cholesterol Calculated 106(H) <100 mg/dL [facility] Comment:Desirable LDL: less than 100 mg/dLNear Optimal/Above Optimal LDL: 110- 129 mg/dLBorderline High LDL: 130-159 mg/dLHigh LDL: 160-189 mg/dLVery High LDL: greater than or equal to 190 mg/dL HDL Cholesterol 28(L) >40 mg/dL [facility] Comment:Desirable HDL: great er than 40 mg/dL Note: This HDL assay may give artificially low results in patients with liver disease. Blood Venous blood specimen / Unknown 09/11/2024 11:53 AM EST 09/11/2024 3:01 PM EST us Irish Sepulveda GEOLOGICAL DRAFTER LAB BLOOD ORDERABLES Final Res ult [facility] [address] [place] [phone] * HPV mRNA E6/E7 w/Reflex to HPV Genotypes 16, 18/45 (08/17/2023 1:41 PM EST) HPV nRNA E6/E7 Not Detected Not Detected [facility] Comment:Methodology: Transcr iption-Mediated AmplificationThis assay detects E6/E7 viral messenger RNA (mRNA) from 14high-risk HPV types (16,18,31,33,35,39,45,51,52,56,58,59,66,68).Cervical sources are required for HPV testing.If a vaginal source from a patient who has had atotal hysterectomy with removal of cervix wassubmitted, please contact the testing laboratoryfor alternative testing options.For additional information, please refer [email or web address].[email or web address]/faq/AVD351e3(This link if provided for information/educational purposes only.)THIS TEST WAS PERFORMED AT:[email or web address] [place] [id number] M LEVY MD HPV mRNA E6/E7 TNP [facility] HPV 16 RNA TNP [facility] HPV 18/45 RNA TNP [facility] 08/17/2023 1:41 PM EST 08/18/2023 8:00 AM EST Eleni Baumann CNM LAB CYTOLOGY ORDERABLES F inal Result [facility] [address] [place] [address] [phone] * Pap Smear (08/17/2023 1:41 PM EST) 08/17/2023 1:41 PM EST 08/18/2023 8:00 AM EST Narrative [facility] - 08/26/2023 4:13 PM EST ----- ------- Name: ?Age/Sex: 38/F ? : 1985 Unit#: [id number] ?? Attend Dr: ELENI BAUMANN CNM ?Re08/17/23 ?Status: DEP REF ? Location: HO.CHCLNP ? Disch: ? ----- ------- SPEC : [id number] ?RECD: 08/18/23 ? STATUS: ??SOUT ? REQ NUM: [id number] ? KARENA: 08/17/23 ? SUBM DR: ELENI BAUMANN CNM ? ENTERED: ??08/18/23 ?SP TYPE: Pap Smr ?OTHR : ? ORDERED: ??Pap Smear ? Interpretation ?? Satisfactory for evaluation. ?? No endocervical cells seen. ?? Negative for intraepithelial lesion or malignancy. ?HPV mRNA E6/E7: ?NOT DETECTED ? This assay detects E6/E7 viral messenger RNA (mRNA) from 14 high-risk HPV types (16, 18, ?? 31, 33, 35, 39, 45, 51, 52, 56, 58, 59, 66, 68) ?? HPV testing performed by [facility], [place], [place]. ??See reference laboratory ?? portion of the EMR for entire report. ?Clinical Information LMP: Amenorrheic on OCP Previous PAP test: 7 yrs, WNL ? Material Received ?? ThinPrep-Cervical ----- ------- Signed (signature on file) SUKHI Prince (ASCP) 08/26/23 1613 ? ----- ------- ? END OF REPORT ? us Eleni Baumann [facility] CYTOLOGY ORDERABLES F inal Result [facility] [address] [place] [phone] from Last 3 Months or Most Recently Relevant to Health Maintenance [place] [address] [place] [address] [facility] AD[facility] Care Teams Counter Pocket Sewer Relationship Specialty Start Date End Date Irish Sepulveda FNP [address] [place] [address] PCP - General Family Medicine 11/12/21
== END 2024-12-13 13:45 | disposition home or self-care (01) ==
LOC: HO.HGI 12:38
PROVIDERS: PCP Registered Nurse; Visit Provider Nurse Practitioner
DX: K21.9 Gastro-esophageal reflux disease without esophagitis (principal); R11.2 Nausea with vomiting, unspecified
CPT/HCPCS: 99203

== ENCOUNTER 2024-12-14 14:21 | Outpatient (REF) | payer MEDICAID, SELFPAY | END 2024-12-14 14:22 | disposition home or self-care (01) | LOC: HO.LNP 14:21 | PROVIDERS: Visit Provider Nurse Practitioner | DX: R11.2 Nausea with vomiting, unspecified (principal); K21.9 Gastro-esophageal reflux disease without esophagitis | CPT/HCPCS: 87338 ==

== ENCOUNTER → 2024-12-22 07:35 | Outpatient (REF) | payer MEDICAID, SELFPAY ==
--- NOTE | ~2024-12-22 | NM_ITS ---
EXAMINATION: NM HEPATOBILIARY WITH PHARM HISTORY: R11.2 - Nausea with vomiting, unspecified. TECHNIQUE: An hepatobiliary scan was performed following the intravenous administration of 5 mCi technetium 99m-mebrofenin. Sequential images were obtained over 1 hour. Subsequently, the patient received 1.7 microgram of IV CCK over 30 minutes and additional imaging was performed. COMPARISON: Correlation is made with an abdominal ultrasound dated 09/14/2010. FINDINGS: There is normal uptake and excretion of the radiopharmaceutical by the liver. Gallbladder activity is noted at 30 minutes. Common bile duct activity is seen at 12 minutes. Small bowel activity is noted at 12 minutes. After the administration of intravenous CCK, the estimated gallbladder ejection fraction is 2%, which is markedly low. NM/NM hepatobiliary w pharm IMPRESSION: No significant gallbladder emptying is seen after CCK administration, consistent with biliary dyskinesia. Electronically signed by: Buddy Mckenzie MD 12/22/2024 11:20 AM EDT
== END ==
LOC: HO.NUCMED 07:35
PROVIDERS: PCP Registered Nurse; Visit Provider Nurse Practitioner
DX: R11.2 Nausea with vomiting, unspecified (principal); K21.9 Gastro-esophageal reflux disease without esophagitis
CPT/HCPCS: 78227; A9537; J2805

== ENCOUNTER → 2024-12-22 07:38 | Outpatient (BNV) | payer MEDICAID, SELFPAY | PROVIDERS: PCP Registered Nurse; Visit Provider Radiology Diagnostic Radiology | DX: R11.2 Nausea with vomiting, unspecified (principal) | CPT/HCPCS: 78227 ==

== ENCOUNTER → 2024-12-28 07:46 | Outpatient (REF) | payer MEDICAID, SELFPAY ==
--- NOTE | ~2024-12-28 | NM_ITS ---
EXAMINATION: OK RADIONUCLIDE SOLID FOOD GASTRIC EMPTYING 4-HOUR STUDY CLINICAL INFORMATION: R11.2 - Nausea with vomiting, unspecified COMPARISON: None TECHNIQUE: A standard meal consisting of 4 oz of Egg Beaters brand tagged with 0.94 mCi Tc-99m Sulfur Colloid, 8 oz water and 1.5 slices of toast with jelly was administered orally to the patient. Images were obtained using a dual head gamma camera in the anterior and posterior projections over of the stomach immediately post ingestion and at hourly intervals up to 4 hours post ingestion. The anterior and posterior counts at each time interval were averaged using the geometric mean and expressed as percentage of the immediate post ingestion counts. FINDINGS: There is visualization of activity in the stomach immediately post ingestion. As the study progresses, there is clearance of activity from the stomach and visualization of progressively increasing small bowel activity. By the end of the study, there is almost no retention noted in the stomach. Retention in the stomach at each time interval was: 1 hour 74% (normal 37%-90%) 2 hours 36% (normal 30%-60%) 3 hours 22% 4 hours 19% (normal 0%-10%) NM/OK gastric emptying study IMPRESSION: Mildly delayed gastric emptying at 4 hours. For solid meal, rapid gastric emptying is less than 30% at 60 minutes. Delayed gastric emptying criteria is more than 60% remaining at 120 minutes or more than 10% at 240 minutes. The 4-hour value is the best discriminator of a normal or abnormal result). Gastric emptying study grading per JNMT Consensus Recommendations in 2008 (https://tech.snmjournals.org/content/36/1/44) Grade 1 (mild retention): 11-20% at 4h Grade 2 (moderate retention): 21-35% at 4h Grade 3 (severe retention): 36-50% at 4h Grade 4 (very severe retention): >50% retention at 4h Electronically signed by: Buddy Mckenzie MD 12/28/2024 02:07 PM EDT
--- OUTSIDE RECORDS SUMMARY | 2024-12-28 07:50 | XMS_ITS | Encounter Summary ---
Author Organization [employer] Address [address] [place] [address], [place] [address] Care Team Providers Care Oven Operator Name Role Phone Irish Sepulveda Primary Care Provider [phone] Encounter Details Date Type Department Care Team ([facility] st Contact Info) Description 01/27/2023 Orders Only [facility] MEDICINE [address] [place], [place] [phone] Marimar Bae LPN Social History Tobacco Use [...] on filedocumented in this encounter Care Teams Oven Operator Relationship Specialty Start Date End Date Irish Sepulveda FNP [address] [place] [address] PCP - General Family Medicine 11/12/21 documented as of this encounter
--- OUTSIDE RECORDS SUMMARY | 2024-12-28 07:50 | XMS_ITS | Encounter Summary ---
Author Organization [employer] Address [address] [place] [address] Care Team Providers Care Awake Overnight Monitor Name Role Phone Irish Sepulveda Primary Care Provider Reason for Visit * Reason Comments Med Refill Encounter Details Date Type Department Care Team ([facility] st Contact Info) Description 11/30/2022 Refill [facility] MED[facility]INE [address] [place] [address] Irish Sepulveda FNP [address] [place] [address] Gastroesophageal reflux disease, unspecified whether esophagitis present [...] present documented in this encounter Care Teams Awake Overnight Monitor Relationship Specialty Start Date End Date Irish Sepulveda FNP [address] [place] [address] PCP - General Family Medicine 11/12/21 documented as of this encounter
--- OUTSIDE RECORDS SUMMARY | 2024-12-28 07:50 | XMS_ITS | Encounter Summary ---
Author Organization [employer] Address [address] [place] [address] Care Team Providers Care Sewage Treatment Plant Operator Name Role Phone Irish Sepulveda Primary Care Provider [phone] Reason for Visit * Reason Onset Date Comments Referral 02/16/2024 Encounter Details Date Type Department Care Team ([facility] st Contact Info) Description 02/16/2024 Telephone [facility] MED[facility]INE [address] [place] [address] Irish Sepulveda FNP [address] [place] [address] Referral Social History Tobacco Use Types Packs/Day [...] AM EDT Tc from pt requesting a Section Hand referral to have gallbladder removed. Pt had an ED visit2 years ago where she was diagnosed with gallstones, from there pt was referred to gastro to have agallbladder removal but pt hesitated to follow through. Due to some recent concerns pt is now re considering gallbladder removal. If any question please contact pt at [phone]. documented in this encounter Plan of Treatment Not on file documented as of this encounter Visit Diagnoses Not on filedocumented in this encounter Additional Health Concerns Assessment Noted Time PHQ-9 Depression Total Score: 10 023 11:21 AM EST documented as of this encounter Care Teams Sewage Treatment Plant Operator Relationship Specialty Start Date End Date Irish Sepulveda FNP [address] [place] [address] PCP - General Family Medicine 11/12/21 documented as of this encounter
--- OUTSIDE RECORDS SUMMARY | 2024-12-28 07:50 | XMS_ITS | Encounter Summary ---
Author Organization [employer] Address [address] [place] [address], [place] [address] Care Team Providers Care Tissue Technologist Name Role Phone Irish Sepulveda Primary Care Provider [phone] Reason for Visit * Reason Onset Date Comments US Order 06/20/2024 Encounter Details Date Type Department Care Team ([facility] Contact Info) Description 06/20/2024 Telephone [facility] MED[facility]INE [address] [place] [address] Irish Sepulveda FNP [address] [place] [address] [place] Order Social History Tobacco Use Types [...] documented as of this encounter Care Teams Tissue Technologist Relationship Specialty Start Date End Date Irish Sepulveda FNP [address] [place] [address] PCP - General Family Medicine 11/12/21 documented as of this encounter
--- OUTSIDE RECORDS SUMMARY | 2024-12-28 07:50 | XMS_ITS | Encounter Summary ---
Author Organization [employer] Address [address] [place] [address] Care Team Providers Care Registered Dental Hygienist Name Role Phone Irish Sepulveda Primary Care Provider [phone] Reason for Visit * Reason Onset Date Comments Appointment Request 05/05/2024 Encounter Details Date Type Department Care Team ([facility] Contact Info) Description 05/05/2024 Telephone [facility] MEDICINE [address] [place] [address] Irish Sepulveda FNP [address] [place] [address] Appointment Request Social History Tobacco Use Types [...] pt, left message for pt to call [facility] office. * Telephone Encounter - Teddy Roque - 05/05/2024 9:50 AM EDT Tc from pt requesting to reschedule todays sick onsite visit. Please contact pt at [phone]. documented in this encounter Plan of Treatment Not on file documented as of this encounter Visit Diagnoses Not on filedocumented in this encounter Additional Health Concerns Assessment Noted Time PHQ-9 Depression Total Score: 10 023 11:21 AM EST documented as of this encounter Care Teams Registered Dental Hygienist Relationship Specialty Start Date End Date Irish Sepulveda FNP [address] [place] [address] PCP - General Family Medicine 11/12/21 documented as of this encounter
--- OUTSIDE RECORDS SUMMARY | 2024-12-28 07:50 | XMS_ITS | Encounter Summary ---
Author Organization [employer] Address [address] [place] [address] [address], [place] [address] Care Team Providers Care Principal Automation Engineer Name Role Phone Irish Sepulveda Primary Care Provider [phone] Encounter Details Date Type Department Care Team ([facility] st Contact Info) Description 03/11/2023 Orders Only [facility] MED[facility]INE [address] [place], [place] [phone] Marimar Bae LPN Social History Tobacco Use [...] on filedocumented in this encounter Care Teams Principal Automation Engineer Relationship Specialty Start Date End Date Irish Sepulveda FNP [address] [place] [address] PCP - General Family Medicine 11/12/21 documented as of this encounter
--- OUTSIDE RECORDS SUMMARY | 2024-12-28 07:50 | XMS_ITS | Encounter Summary ---
Author Organization [employer] Address [address] [place] [address] [address], [place] [address] Care Team Providers Care Gold Burnisher Name Role Phone Irish Sepulveda Primary Care Provider [phone] Reason for Visit * Reason Onset Date Comments US Order 06/21/2024 Encounter Details Date Type Department Care Team ([facility] Contact Info) Description 06/21/2024 Telephone [facility] MEDICINE [address] [place] [address] Irish Sepulveda FNP [address] [place] [address] US Order Social History Tobacco Use Types [...] any questions you can contact Mansi at [phone]. * Telephone Encounter - Teddy Roque - 06/21/2024 10:03 AM EDT Tc from Edilberto with [facility] calling in regards US order of the abdomen stating it is missing pcp signature. They're requesting for a order to be resent with signature. If any questions you can contact Edilberto at [phone]. documented in this encounter Plan of Treatment Not on file documented as of this encounter Visit Diagnoses Not on filedocumented in this encounter Additional Health Concerns Assessment Noted Time PHQ-9 Depression Total Score: 10 023 11:21 AM EST documented as of this encounter Care Teams Gold Burnisher Relationship Specialty Start Date End Date Irish Sepulveda FNP [address] [place] [address] PCP - General Family Medicine 11/12/21 documented as of this encounter
--- OUTSIDE RECORDS SUMMARY | 2024-12-28 07:51 | XMS_ITS | Encounter Summary ---
Author Organization [employer] Address [address] [place] [address] [address] [place] [address] Care Team Providers Care Housekeeping Supervisor Name Role Phone Irish Sepulevda Primary Care Provider [phone] Encounter Details Date Type Department Care Team ([facility] st Contact Info) Description 12/22/2023 Orders Only [facility] [address] [place], [place] [phone] Irish Sepulveda FNP [address] [place] [address] Gastroesophageal reflux disease, unspecified whether esophagitis present [...] documented as of this encounter Care Teams Housekeeping Supervisor Relationship Specialty Start Date End Date Irish Sepulveda FNP [address] [place] [address] PCP - General Family Medicine 11/12/21 documented as of this encounter
--- OUTSIDE RECORDS SUMMARY | 2024-12-28 07:51 | XMS_ITS | Encounter Summary ---
Author Organization [employer] Address [address] [place] [address] [address] [place] [address] Care Team Providers Care Home Office Claim Specialist Name Role Phone AlejandraIrish grimes JANI Primary Care Provider [phone] Reason for Visit * Reason Onset Date Comments appt extraction 11/09/2023 Encounter Details Date Type Department Care Team ([facility] st Contact Info) Description 11/09/2023 Telephone [facility] [address] [place] [address] Chad Monsivais, JEREMIAH [address] [place] [address] appt extraction Social History Tobacco Use Types [...] documented as of this encounter Care Teams Home Office Claim Specialist Relationship Specialty Start Date End Date Irish Sepulveda FNP [address] [place] [address] PCP - General Family Medicine 11/12/21 documented as of this encounter
--- OUTSIDE RECORDS SUMMARY | 2024-12-28 07:51 | XMS_ITS | Clinical Summary ---
Author Organization [employer] Address [address] [place] [address] 7 [place] [address] Care Team Providers Care Air Launch Weapons Technician Name Role Phone Irish Sepulveda JANI Primary Care Provider [phone] Allergies Active Allergy Reactions Criticality Noted Date [...] through PCP, scheduled for initial consult with [facility] Psych ROTARY CUTTER FEEDER No acute concerns, mental health stable Assessment [...] acute concerns, mental health stable Referral to [facility] BH team for BE with referral to psych prescriber - possibly telehealth 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 Assessment & Plan (12/28/2023 7:17 PM EDT): Diffuse enlargement, denies symptoms, Labs and ultrasound ordered Cigarette smoker 08/19/2023 Overview (08/19/2023): -Cigg/day: 5 -Encouraged smoking cessation resources such as pharmacomtherapy, [facility] smoking cessation group, and [facility] pharmacy smoking cessation clinic -Currently following with Sheron for assistance with smoking cessation Assessment & Plan (12/28/2023 7:17 PM EDT): Actively cutting back, has patches, declines further supports today Healthcare maintenance 07/30/2023 Assessment & Plan (09/17/2024 9:29 PM EST): -Optometry: referral to [facility] Eye Care previously placed -Pap: NILM, HPV neg on 08/17/23. Next due: 2027 -PE: due - Routine labs ordered today including asymptomatic STI screening - Refilled POP for contraception. Reviewed med safety and SE Assessment & Plan (07/31/2023 11:09 AM EST): -Optometry: referral to [facility] Eye Care previously placed -Pap: Pt reports it has been > 5 years since last pap. Missed last pap appt, scheduled with [facility] CNM -STI: previously ordered, pending -Dental: discuss [...] organization. Date Type Department Care Team Description 12/13/2024 Orders Only GENERIC EXTERNAL DATA DEPARTMENT Provider, Generic External Data 12/01/2024 Population [facility] Risk Score [facility] (C[facility]) Department [address] [phone] Provider, [facility] Generic 11/30/2024 Telephone [facility] [address] [place] [address] Irish Sepulveda FNP Chart Prep 11/06/2024 Refill [facility] MEDICINE [address] [place] [address] Irish Sepulveda FNP Mood disorder (CMS/HCC) 10/25/2024 Refill [facility] [address] [place] [address] Irish Sepulveda FNP 10/13/2024 Telephone [facility] [address] [place] [address] Irish Sepulveda FNP Med Refill 10/04/2024 Telephone [facility] [address] [place] [address] Irish Sepulveda FNP TC: Abd US Results 10/02/2024 1:15 PM EST Procedure Visit [facility] [address] [place] [address] Wyatt Baumann CNM Visit for pelvic exam (Primary Dx); Surveillance of previously prescribed contraceptive pill 10/02/2024 Travel 09/29/2024 11:15 AM EST Office Visit [facility] [address] [place] [address] Irish Sepulveda FNP Hyperglycemia (Primary Dx); Encounter for immunization; Elevated LFTs; Other hyperlipidemia 09/29/2024 Travel from Last 3 Months Immunizations Name Administration [...] Dental X-Ray: [facility] 08/24/2024 08/23/2023 Depression Monitoring 01/17/2025 07/20/2024, 024 Depression Screening 07/20/2025 07/20/2024, 07/20/20 24 COVID-19 [...] Procedure Name Priority Date/Time Associated Diagnosis Comments NM HEPATOBILIARY W PHARM Routine 12/22/2024 7:38 AM EDT CBC WITH AUTO DIFFERENTIAL Routine 12/13/2024 2:31 PM EDT COMPREHENSIVE METABOLIC PANEL Routine 12/13/2024 2:31 PM EDT HIV 1/2 ANTIGEN/ANTIBODY, FOURTH GENERATION W/RFL Routine [...] Recently Relevant to Health Maintenance Results * NM Hepatobiliary w Pharm (12/22/2024 7:38 AM EDT) Anatomical Region Laterality Modality Body Nuclear Medicine 12/22/2024 7:38 AM EDT Narrative 12/22/2024 11:24 AM EDT ? [facility] ?[address] ?[place] [address] ?Nuclear Medicine Report ? Signed ? Patient: Boisjolie,Kristal ?MR#: [id number] ?? [id number] ? : 1985 ?Acct:[id number] ? Age/Sex: 39 / F ?ADM Date: 12/22/24 ? Loc: HO.NUCMED ? Attending Dr: Kristal ADAME ? Ordering Physician: Kristal Nguyen ?? Date of Service: 12/22/24 ?? Procedure(s): NM hepatobiliary w pharm ?? Accession Number(s): [id number] ? cc: Kristal Nguyen-C; Irish Sepulveda HEAD BATCHER ? EXAMINATION: NM HEPATOBILIARY WITH PHARM ? HISTORY: R11.2 - Nausea with vomiting, unspecified. ? TECHNIQUE: An hepatobiliary scan was performed following the ?? intravenous administration of 5 mCi technetium 99m-mebrofenin. ?? Sequential images were obtained over 1 hour. Subsequently, the patient ?? received 1.7 microgram of IV CCK over 30 minutes and additional imaging ?? was performed. ? COMPARISON: Correlation is made with an abdominal ultrasound dated ?? 09/14/2010. ? FINDINGS: ? There is normal uptake and excretion of the radiopharmaceutical by the ?? liver. Gallbladder activity is noted at 30 minutes. Common bile duct ?? activity is seen at 12 minutes. Small bowel activity is noted at 12 ?? minutes. ??After the administration of intravenous CCK, the estimated ?? gallbladder ejection fraction is 2%, which is markedly low. ? NM/NM hepatobiliary w pharm ?? IMPRESSION: ? No significant gallbladder emptying is seen after CCK administration, ?? consistent with biliary dyskinesia. ? Electronically signed by: ??Buddy Mckenzie MD ??12/22/2024 11:20 AM EDT ?? RP ? Dictated By: ?Buddy Mckenzie MD ? Signed By: ?<Electronically signed by Buddy Mckenzie MD in OV> ?12/22/240 ? DD/ 7 ? TD/TT: 12/22/24 1045 ? Video Games Storywriter: ? Procedure Note Tri, Tao - 12/22/[address] [address] Nuclear Medicine Report Signed Patient: Lawrence Denson#: [id number] : 1985Acct:[id number] Age/Sex: 39 / FADM Date: 12/22/24 Loc: [place] Attending Dr: Kristal ADAME Ordering Physician: Kristal Nguyen Date of Service: 12/22/24 Procedure(s): NM hepatobiliary w pharm Accession Number(s): [id number] cc: Kristal Nguyen; Irish Sepulveda EXAMINATION: NM HEPATOBILIARY WITH PHARM HISTORY: R11.2 - Nausea with vomiting, unspecified. TECHNIQUE: An hepatobiliary scan was performed following the intravenous administration of 5 mCi technetium 99m-mebrofenin. Sequential images were obtained over 1 hour. Subsequently, the patient received 1.7 microgram of IV CCK over 30 minutes and additional imaging was performed. COMPARISON: Correlation is made with an abdominal ultrasound dated 09/14/2010. FINDINGS: There is normal uptake and excretion of the radiopharmaceutical by the liver. Gallbladder activity is noted at 30 minutes. Common bile duct activity is seen at 12 minutes. Small bowel activity is noted at 12 minutes. After the administration of intravenous CCK, the estimated gallbladder ejection fraction is 2%, which is markedly low. NM/NM hepatobiliary w pharm IMPRESSION: No significant gallbladder emptying is seen after CCK administration, consistent with biliary dyskinesia. Electronically signed by: Buddy Mckenzie MD 12/22/2024 11:20 AM EDT RP Dictated By: Buddy Mckenzie MD Signed By: <Electronically signed by Buddy Mckenzie MD in OV> 12/22/24 1120 DD/ 0738 TD/TT: 12/22/24 1045 Video Games Storywriter: [facility] External Provider IMG NM PROCEDURES Final Result * (ABNORMAL) CBC auto differential (12/13/2024 2:31 PM EDT) White Blood Count 7.1 4.8 - 10.8 X10*3/uL [facility] Red Blood Count 5.30 4.20 - 5.50 X10*6/uL [facility] Hemoglobin 16.7(H) 12.0 - 16.0 g/dl [facility] Hematocrit 47.0 37.0 - 47.0 % [facility] Mean Corpuscular Volume 88.7 80.0 - 98.0 fL [facility] Mean Corpuscular Hemoglobin 31.5 27.0 - 33.0 pg [facility] Mean Corpuscular HGB Conc 35.5(H) 31.0 - 35.0 g/dl [facility] Red Cell Distribution Width 12.0 11.0 - 16.0 % [facility] Platelet Count 185 160 - 400 X10*3/uL [facility] Mean Platelet Volume 10.9 9.4 - 12.3 fL [facility] Neutrophils Percent Auto 64.0 45 - 73 % [facility] Imm Gran Pct Auto 0.4 0.0 - 0.4 % [facility] Lymphocytes Percent Auto 26.6 20 - 40 % [facility] Monocytes Percent Auto 6.7 2 - 11 % [facility] Eosinophils Percent Auto 1.7 0 - 4 % [facility] Basophils Percent Auto 0.6 0 - 2 % [facility] NRBC Pct Auto 0.0 0.0 - 0.2 /100WBC [facility] Neutrophils Absolute Auto 4.6 2.0 - 8.3 x10*3/uL [facility] Imm Gran Abs Auto 0.03 0.00 - 0.03 X10*3/uL [facility] Lymphocytes Absolute Auto 1.9 1.2 - 4.9 X10*3/uL [facility] Monocytes Absolute Auto 0.5 0.1 - 1.2 X10*3/uL [facility] Eosinophils Absolute Auto 0.1 0.0 - 0.4 X10*3/uL [facility] Basophils Absolute Auto 0.0 0.0 - 0.2 X10*3/uL [facility] NRBC Abs Auto 0.000 0.0 - 0.012 X10*3/uL [facility] 12/13/2024 2:31 PM EDT 12/13/2024 2:31 PM EDT us Generic External Data Provider LAB BLOOD ORDERAB LES Final Result [facility] [address] [place], [place] [phone] * (ABNORMAL) Comprehensive Metabolic Panel (12/13/2024 2:31 PM EDT) Sodium 137 135 - 145 mmol/L [facility] Potassium 4.9 3.3 - 5.1 mmol/L [facility] Chloride 104 96 - 108 mmol/L [facility] Carbon Dioxide 28 22 - 29 mmol/L [facility] Anion Gap 10(L) 12 - 20 [facility] Urea Nitrogen (BUN) 6(L) 9 - 16 mg/dL [facility] Creatinine, Serum 0.85 0.5 - 1.4 mg/dL [facility] Estimated Glomerular Filt Rate >60 [facility] Comment:Chronic Kidney Disea se: Estimated GFR < 60 mL/min/1.59k8Ilxyll Kidney Disease: Estimated GFR < 15 mL/min/1.73m2 Glucose 298(H) 60 - 115 mg/dL [facility] Calcium 8.9 8.4 - 10.2 mg/dL [facility] Bilirubin, Total 0.8 0.0 - 1.0 mg/dL [facility] Aspartate Amino Transferase 94(H) 5 - 31 U/L [facility] Alanine Aminotransferase 112(H) 0 - 31 U/L [facility] Total Protein 7.3 6.5 - 8.0 g/dL [facility] Albumin Level 3.9 3.5 - 5.0 g/dL [facility] Alkaline Phosphatase 100 39 - 117 U/L [facility] 12/13/2024 2:31 PM EDT 12/13/2024 2:31 PM EDT us Generic External Data Provider LAB BLOOD ORDERAB LES Final Result [facility] [address] [place] [phone] * HIV-1/2 Antigen and Antibodies, Fourth Generation, with Reflexes (09/11/2024 11:53 AM EST) HIV AB/AG Nonreactive Nonreactive [facility] Comment:HIV-1 p24 Ag and/or HIV-1/HIV-2 Ab not detected.A test result that is nonreactive does not exclude thepossibility of exposure to or infection with HIV-1 and/orHIV-2. Nonreactive results in this assay for individualswith prior exposure to HIV-1 and/or HIV-2 may be due toantigen and antibody levels that are below the limit ofdetection of this assay.The [employer] HIV Ag/Ab Combo assay result andsupplemental assay results should be interpreted inconjunction with the patient's clinical presentation,history and other laboratory results. If the results areinconsistent with clinical evidence, additional testing issuggested to confirm the result. Blood Venous blood specimen / Unknown 09/11/2024 11:53 AM EST 09/11/2024 3:01 PM EST us Irish Sepulveda HEAD BATCHER LAB BLOOD ORDERABLES Final Res ult [facility] [address] [place] [phone] [phone] * (ABNORMAL) Lipid Panel, Standard (09/11/2024 11:53 AM EST) Triglycerides 269(H) <150 mg/dL [facility] Comment:Desirable Triglyceri de: less than 150 mg/dLBorderline High Triglyceride 150-199 mg/dLHigh Triglyceride: 200-499 mg/dLVery High Triglyceride: greater than or equal to 5OO mg/dL Cholesterol 187 <200 mg/dL [facility] Comment:Desirable Cholestero l: less than 200 mg/dLBorderline High Cholesterol: 200-239 mg/dLHigh Cholesterol: greater than 239 mg/dL LDL Cholesterol Calculated 106(H) <100 mg/dL [facility] Comment:Desirable LDL: less than 100 mg/dLNear Optimal/Above Optimal LDL: 110- 129 mg/dLBorderline High LDL: 130-159 mg/dLHigh LDL: 160-189 mg/dLVery High LDL: greater than or equal to 190 mg/dL HDL Cholesterol 28(L) >40 mg/dL [facility] Comment:Desirable HDL: great er than 40 mg/dL Note: This HDL assay may give artificially low results in patients with liver disease. Blood Venous blood specimen / Unknown 09/11/2024 11:53 AM EST 09/11/2024 3:01 PM EST us Irish Sepulveda HEAD BATCHER LAB BLOOD ORDERABLES Final Res ult [facility] [address] [place] [phone] [phone] * HPV mRNA E6/E7 w/Reflex to HPV Genotypes 16, 18/45 (08/17/2023 1:41 PM EST) HPV nRNA E6/E7 Not Detected Not Detected [facility] Comment:Methodology: Transcr iption-Mediated AmplificationThis assay detects E6/E7 viral messenger RNA (mRNA) from 14high-risk HPV types (16,18,31,33,35,39,45,51,52,56,58,59,66,68).Cervical sources are required for HPV testing.If a vaginal source from a patient who has had atotal hysterectomy with removal of cervix wassubmitted, please contact the testing laboratoryfor alternative testing options.For additional information, please refer tohttp://education.[employer]/faq/BVY094j0(This link if provided for information/educational purposes only.)THIS TEST WAS PERFORMED AT:[email or web address] [place] [phone] M LEVY MD HPV mRNA E6/E7 [facility] HPV 16 RNA [facility] HPV 18/45 RNA [facility] 08/17/2023 1:41 PM EST 08/18/2023 8:00 AM EST Wyatt Baumann [facility] CYTOLOGY ORDERABLES F inal Result [facility] [address], [place] [phone] * Pap Smear (08/17/2023 1:41 PM EST) 08/17/2023 1:41 PM EST 08/18/2023 8:00 AM EST Narrative [facility] - 08/26/2023 4:13 PM EST ----- ------- Name: Janiya ?Age/Sex: 38/F ? : 1985 Unit#: [id number] ?? Attend Dr: WYATT BAUMANN CNM ?Re08/17/23 ?Status: DEP REF ? Location: HO.CHCLNP ? Disch: ? ----- ------- SPEC : [id number] ?RECD: 08/18/23 ? STATUS: ??SOUT ? REQ NUM: [id number] ? KARENA: 08/17/23 ? SUBM DR: WYATT BAUMANN CNM ? ENTERED: ??08/18/23 ?SP TYPE: Pap Smr ?OTHR DR: ? ORDERED: ??Pap Smear ? Interpretation ?? Satisfactory for evaluation. ?? No endocervical cells seen. ?? Negative for intraepithelial lesion or malignancy. ?HPV mRNA E6/E7: ?NOT DETECTED ? This assay detects E6/E7 viral messenger RNA (mRNA) from 14 high-risk HPV types (16, 18, ?? 31, 33, 35, 39, 45, 51, 52, 56, 58, 59, 66, 68) ?? HPV testing performed by [employer], [place], [place]. ??See reference laboratory ?? portion of the EMR for entire report. ?Clinical Information LMP: Amenorrheic on OCP Previous PAP test: 7 yrs, WNL ? Material Received ?? ThinPrep-Cervical ----- ------- Signed (signature on file) SUKHI Prince (ASCP) 08/26/23 1613 ? ----- ------- ? END OF REPORT ? us Wyatt Baumann [facility] CYTOLOGY ORDERABLES F inal Result [facility] [address] [place] [phone] from Last 3 Months or Most Recently Relevant to Health Maintenance Insurance [facility] C3 DENTAL-[facility] MEDICAID STAND ADULT Care Teams Air Launch Weapons Technician Relationship Specialty Start Date End Date Irish Sepulveda FNP [address] [place] [address] PCP - General Family Medicine 11/12/21
--- OUTSIDE RECORDS SUMMARY | 2024-12-28 07:51 | XMS_ITS | Encounter Summary ---
Author Organization [employer] Address [address] [place] [address] Care Team Providers Care Wire Weaver Helper Name Role Phone Irish Sepulveda Primary Care Provider [phone] Reason for Visit * Reason Onset Date Comments Med Refill 10/13/2024 Encounter Details Date Type Department Care Team ([facility] Contact Info) Description 10/13/2024 Telephone [facility] [address] [place], [place] [phone] Irish Sepulveda FNP [address] [place] [address] Med Refill Social History Tobacco Use Types [...] 40 MG tablet To be sent to: [facility] - [place], [place] - [address] [facility] documented in this encounter Plan of Treatment Not on file documented as of this encounter Visit Diagnoses Not on filedocumented in this encounter Additional Health Concerns Assessment Noted Time PHQ-9 Depression Total Score: 14 024 1:30 PM EDT documented as of this encounter Care Teams Wire Weaver Helper Relationship Specialty Start Date End Date Irish Sepulveda FNP [address] [place] [address] PCP - General Family Medicine 11/12/21 documented as of this encounter
== END ==
LOC: HO.NUCMED 07:46
PROVIDERS: PCP Registered Nurse; Visit Provider Nurse Practitioner
DX: R11.2 Nausea with vomiting, unspecified (principal); K21.9 Gastro-esophageal reflux disease without esophagitis
CPT/HCPCS: 78264; A9541

== ENCOUNTER → 2024-12-28 07:48 | Outpatient (BNV) | payer MEDICAID, SELFPAY | PROVIDERS: PCP Registered Nurse; Visit Provider Radiology Diagnostic Radiology | DX: R11.2 Nausea with vomiting, unspecified (principal) | CPT/HCPCS: 78264 ==

== ENCOUNTER 2025-01-22 09:55 | Outpatient (AMB) | payer MEDICAID, SELFPAY ==
[2025-01-22 09:58] VITALS: BP 126/61; PULSE 81; O2SAT 95; BMI 33.2
--- NOTE | 2025-01-22 09:58 | MHC.OFFVIS ---
Vital Signs 01/22/25 09:58 Height 5 ft 2 in Weight 181 lb 10.574 oz BMI 33.2 BP 126/61 Blood Pressure Location Lt brachial Position Sitting Pulse 81 Pulse Source Pulse Oximeter Pulse Oximetry (%) 95 Oxygen Delivery Method Room Air Intake Visit Reasons: Cholecystitis Intake Note: Patient referred by Kristal Nguyen CHEMISTRY QUALITY CONTROL TECHNICIAN for cholecystitis. Patient c/o: vomiting,nausea,diarrhea, lower abdominal pain. HIDA: 12-22-2024 Accompanied by: Mother Allergies Heparin Analogues [Heparin Agents] Allergy (Intermediate, Unverified 01/22/25 10:00) HIVES codeine [CODEINE] Allergy (Mild, Unverified 01/22/25 10:00) HIVES heparin Allergy (Unknown, Uncoded 01/22/25 10:00) hives tylenol with codeine Allergy (Unknown, Uncoded 01/22/25 10:00) hives Medication List - Last Reconciled 01/22/25 by Faisal Rucker MD buprenorphine ER (Sublocade) 300 mg subcut .once a month buspirone 15 mg PO BID dextroamphetamine-amphetamine 30 mg ER (Adderall XR) 1 cap PO DAILY gabapentin 300 mg PO BID lampxm-pmnxwqux-gfvcjpn 36,000-114,000- 180,000 unit (Creon) 2 caps PO BID norethindrone acetate 10 mg PO DAILY ondansetron 4 mg PO BID-TID PRN pantoprazole 40 mg PO DAILY propranolol ER orally 2 times a day; quetiapine (Seroquel) 100 mg PO DAILY HPI HPI Cholecystitis: Details: [age] year old female referred for an abnormal HIDA scan She has a long history of GI issues. She says she had she has diffuse abdominal pain, not confined to the right upper quadrant, for about 5 years now. This would be periodic and sometimes food last 4 days. She says that this is not at all related to food intake. She says that this may have been worsening for the past few months. She says she has lost maybe about over 10 lb the past 2 months or so. She says that she also has periodic vomiting without any known precipitating factor. She says she ?burps lot?. She denies any diarrhea or constipation. She had an ultrasound in [facility] which did not show any gallstones She however with a HIDA scan showing very poor ejection fraction so we referred to me. PFSH Medical History (Updated 01/22/25 @ 10:26 by Faisal Rucker MD) Chronic abdominal pain Abnormal biliary HIDA scan Asthma Chronic hepatitis C Nausea and vomiting Goiter Obesity (BMI 30-39.9) Opioid use disorder Anxiety Surgical History (System 12/13/24 @ 16:52 by Isabelle Solitario) History of section Family History (Reviewed 12/13/24 @ 13:03 by Alexander Savage [facility]) Paternal Grandfather Lung cancer Prostate cancer Paternal Grandmother Lung cancer Paternal Uncle Prostate cancer Paternal Uncle Lung cancer Social History (System 12/13/24 @ 16:52 by Isabelle Solitario) Alcohol intake: current Alcohol intake frequency: holidays/special occasions only Alcohol type: wine Patient Tobacco Use Status: Current everyday Tobacco user Cigarette Packs Per Day: 1 Substance Use Type: Marijuana Review of Systems Const Denies chills, Denies fever(s) and Reports weight loss Card Denies chest pain, Denies dyspnea and Denies dyspnea on exertion Resp Denies cough, Denies dyspnea and Denies dyspnea on exertion GI Denies hematochezia and Denies change in bowel habits Denies hematuria Musc Denies back pain and Denies limited range of motion Neuro Denies focal weakness and Denies convulsions Psych Denies depression and Denies mood swings Physical Exam Vital Signs: Last Vital Signs Pulse 81 01/22/25 09:58 BP 126/61 01/22/25 09:58 Pulse Ox 95 01/22/25 09:58 Oxygen Delivery Method Room Air 01/22/25 09:58 BMI result Body Mass Index 33.2 Const General: comfortable and no acute distress Orientation/consciousness: patient oriented x3 Eyes Other: Anicteric Neck Neck: Yes no lymphadenopathy Resp Auscultation: clear to auscultation bilaterally Cardio Rhythm: regular rhythm GI Palpation (GI): Soft to palpation, nontender and no guarding Neuro General: patient oriented x3 Assessment & Plan Assessment & Plan (1) Abnormal biliary HIDA scan: Code(s): R94.8 - Abnormal results of function studies of other organs and systems Category: Medical Plan: She has had chronic issues of abdominal pain, nausea, vomiting and ?burping? for several years. She says that this has been worsening over the years. She did have a HIDA scan ordered by the film numberer which showed very poor ejection fraction consistent with biliary dyskinesia. However, her symptoms are not precipitated by food intake or meals . I am going to therefore order for a CAT scan of the abdomen and pelvis to rule out any other pathology. I did tell her that for biliary dyskinesia, she may benefit from laparoscopic cholecystectomy. Briefly reviewed the technique of this procedure as was the risks, benefits, and alternatives. I will see her in the office after her CAT scan to review the findings. She is comfortable with the plan. Her mother was with her during the visit Orders: Orders CT abdomen pelvis w IV con Today G89.29 - Other chronic pain, R10.9 - Unspecified abdominal pain Creatinine Today G89.29 - Other chronic pain, R10.9 - Unspecified abdominal pain Blood Urea Nitrogen Today G89.29 - Other chronic pain, R10.9 - Unspecified abdominal pain Coding Level of Care Code New Pt Level 3 (04427) Diagnoses Abnormal biliary HIDA scan R94.8
--- OUTSIDE RECORDS SUMMARY | 2025-01-22 11:05 | XMS_ITS | Encounter Summary ---
Author Organization [employer] Address [address] [place] [address] [address] Care Team Providers Care Student Services Coordinator Name Role Phone Irish Sepulveda Primary Care Provider [phone] Encounter Details Date Type Department Care Team ([facility] st Contact Info) Description 03/11/2023 Orders Only [facility] MEDICINE [address] [place], [place] [phone] Marimar Bae LPN Social History Tobacco Use [...] on filedocumented in this encounter Care Teams Student Services Coordinator Relationship Specialty Start Date End Date Irish Sepulveda FNP [address] [place] [address] PCP - General Family Medicine 11/12/21 documented as of this encounter
--- OUTSIDE RECORDS SUMMARY | 2025-01-22 11:05 | XMS_ITS | Encounter Summary ---
Author Organization [employer] Address [address] [place] [address] [place] [address] Care Team Providers Care Truck Assembler Name Role Phone Irish Sepulveda JANI Primary Care Provider [phone] Reason for Visit * Reason Onset Date Comments appt extraction 11/09/2023 Encounter Details Date Type Department Care Team ([facility] st Contact Info) Description 11/09/2023 Telephone [facility] ADULT DENTAL [address] [place] [address] Chad Monsivais DMD [address] [place] [address] appt extraction Social History Tobacco Use Types [...] documented as of this encounter Care Teams Truck Assembler Relationship Specialty Start Date End Date Irish Sepulveda FNP [address] [place] [address] PCP - General Family Medicine 11/12/21 documented as of this encounter
--- OUTSIDE RECORDS SUMMARY | 2025-01-22 11:05 | XMS_ITS | Encounter Summary ---
Author Organization [employer] Address [address] [place] [address] Care Team Providers Care Research Consultant Name Role Phone Irish Sepulveda Primary Care Provider [phone] Reason for Visit * Reason Onset Date Comments Med Refill 10/13/2024 Encounter Details Date Type Department Care Team ([facility] Contact Info) Description 10/13/2024 Telephone [facility] MED & PEDS [address] [place], [place] [phone] Irish Sepulveda FNP [address] [place] [address] Med Refill Social History Tobacco Use Types [...] 40 MG tablet To be sent to: [facility] - [place], [place] - [address] [facility] documented in this encounter Plan of Treatment Not on file documented as of this encounter Visit Diagnoses Not on filedocumented in this encounter Additional Health Concerns Assessment Noted Time PHQ-9 Depression Total Score: 14 024 1:30 PM EDT documented as of this encounter Care Teams Research Consultant Relationship Specialty Start Date End Date Irish Sepulveda FNP [address] [place] [address] PCP - General Family Medicine 11/12/21 documented as of this encounter
--- OUTSIDE RECORDS SUMMARY | 2025-01-22 11:05 | XMS_ITS | Encounter Summary ---
Author Organization [employer] Address [address] [place] [address] Care Team Providers Care Yacht Rigger Name Role Phone Irish Sepulveda Primary Care Provider [phone] Reason for Visit * Reason Comments Med Refill Encounter Details Date Type Department Care Team ([facility] st Contact Info) Description 11/30/2022 Refill [facility] MEDICINE [address] [place] [address] Irish Sepulveda FNP [address] [place] [address] Gastroesophageal reflux disease, unspecified whether esophagitis present [...] present documented in this encounter Care Teams Yacht Rigger Relationship Specialty Start Date End Date Irish Sepulveda FNP [address] [place] [address] PCP - General Family Medicine 11/12/21 documented as of this encounter
--- OUTSIDE RECORDS SUMMARY | 2025-01-22 11:05 | XMS_ITS | Encounter Summary ---
Author Organization [employer] Address [address] [place] [address] 7[place] [address] Care Team Providers Care Automotive Sales Manager Name Role Phone Irish Sepulveda Primary Care Provider [phone] Reason for Visit * Reason Onset Date Comments US Order 06/20/2024 Encounter Details Date Type Department Care Team ([facility] Contact Info) Description 06/20/2024 Telephone [facility] MEDICINE [address] [place] [address] Irish Sepulveda FNP [address] [place] [address] [place] Order Social History Tobacco Use Types [...] documented as of this encounter Care Teams Automotive Sales Manager Relationship Specialty Start Date End Date Irish Sepulveda FNP [address] [place] [address] PCP - General Family Medicine 11/12/21 documented as of this encounter
--- OUTSIDE RECORDS SUMMARY | 2025-01-22 11:05 | XMS_ITS | Encounter Summary ---
Author Organization [employer] Address [address] [place] [address] [address] [place] [address] Care Team Providers Care Neurologist Name Role Phone Irish Sepulveda Primary Care Provider [phone] Encounter Details Date Type Department Care Team ([facility] st Contact Info) Description 12/22/2023 Orders Only [facility] MED & PEDS [address] [place], [place] [phone] Irish Sepulveda FNP [address] [place] [address] Gastroesophageal reflux disease, unspecified whether esophagitis present [...] documented as of this encounter Care Teams Neurologist Relationship Specialty Start Date End Date Irish Sepulveda FNP [address] [place] [address] PCP - General Family Medicine 11/12/21 documented as of this encounter
--- OUTSIDE RECORDS SUMMARY | 2025-01-22 11:05 | XMS_ITS | Encounter Summary ---
Author Organization [employer] Address [address] [place] [address] 7[place] [address] Care Team Providers Care Director Hr Communications Name Role Phone Irish Sepulveda Primary Care Provider [phone] Encounter Details Date Type Department Care Team ([facility] st Contact Info) Description 01/27/2023 Orders Only [facility] MEDICINE [address] [place], [place] [phone] Marimar Bae LPN Social History Tobacco Use [...] on filedocumented in this encounter Care Teams Director Hr Communications Relationship Specialty Start Date End Date Irish Sepulveda FNP [address] [place] [address] PCP - General Family Medicine 11/12/21 documented as of this encounter
--- OUTSIDE RECORDS SUMMARY | 2025-01-22 11:05 | XMS_ITS | Encounter Summary ---
Author Organization [employer] Address [address] [place] [address] Care Team Providers Care Scientist Propagator Name Role Phone Irish Sepulveda Primary Care Provider Reason for Visit * Reason Onset Date Comments Referral 02/16/2024 Encounter Details Date Type Department Care Team ([facility] st Contact Info) Description 02/16/2024 Telephone [facility] MEDICINE [address] [place] [address] Irish Sepulveda FNP [address] [place] [address] Referral Social History Tobacco Use Types Packs/Day [...] AM EDT Tc from pt requesting a Racecourse Barrier Attendant referral to have gallbladder removed. Pt had an ED visit2 years ago where she was diagnosed with gallstones, from there pt was referred to gastro to have agallbladder removal but pt hesitated to follow through. Due to some recent concerns pt is now re considering gallbladder removal. If any question please contact pt at [phone]. documented in this encounter Plan of Treatment Not on file documented as of this encounter Visit Diagnoses Not on filedocumented in this encounter Additional Health Concerns Assessment Noted Time PHQ-9 Depression Total Score: 10 023 11:21 AM EST documented as of this encounter Care Teams Scientist Propagator Relationship Specialty Start Date End Date Irish Sepulveda FNP [address] [place] [address] PCP - General Family Medicine 11/12/21 documented as of this encounter
--- OUTSIDE RECORDS SUMMARY | 2025-01-22 11:05 | XMS_ITS | Clinical Summary ---
Author Organization [employer] Address [address] [place] [address] 7 [place] [address] Care Team Providers Care Employment And Claims Aide Name Role Phone Irish Sepulveda JANI Primary Care Provider [phone] Allergies Active Allergy Reactions Criticality Noted Date Comments Acetaminophen Hives 12/10/2016 Acetaminophen-Codeine 02/10/2023 Codeine Hives 12/10/2016 Heparin Hives 12/10/2016 Other reaction(s): itching, hives Medications * This document contains information received from the source organization and may not represent a complete record from that organization. Sublocade 300 MG/1.5ML injection 023 Active albuterol (Ventolin HFA) 108 (90 Base) MCG/ACT inhaler inhale 2 puff by inhalation route every 4 - 6 hours as needed 18 g 11 023 Active triamcinolone (Kenalog) 0.1 % creamIndicatio ns:Other atopic dermatitis Mix 80g tube of Triamcinolone 0.1% cream with 16oz jar of CeraVe cream. Apply 1-2 times per day after shower or bath from the neck down (not on face) 80 g 1 023 Active propranolol (Inderal) 10 MG tablet Active amphetamine-de xtroamphetamin e XR (Adderall XR) 30 MG 24 hr capsule 022 Active lidocaine (Lidoderm) 5 % patch APPLY 1 PATCH BY TRANSDERMAL ROUTE EVERY DAY (MAY WEAR UP TO 12HOURS.) 30 patch 3 023 Active norethindrone (Micronor) 0.35 MG tablet 1 tablet by mouth at same time each day 90 tablet 3 025 Active lurasidone (Latuda) 60 MG tablet Take 1 tablet (60 mg) by mouth Once daily. 90 tablet 025 Active busPIRone (Buspar) 7.5 MG tablet Take 1 tablet (7.5 mg) by mouth 2 times daily. 60 tablet 025 2024 Active QUEtiapine (SEROquel) 100 MG tablet Take 1 tablet (100 mg) by mouth Once daily. 30 tablet 025 2024 Active gabapentin (Neurontin) 300 MG capsuleIndicat ions:Mood disorder (CMS/HCC) Take 1 capsule (300 mg) by mouth 2 times daily. 60 capsule 025 Active pantoprazole (ProtoNix) 40 MG EC tabletIndicati ons:Gastroesop hageal reflux disease, unspecified whether esophagitis present Take 1 tablet (40mg) by mouth daily 90 tablet 2 025 Active pantoprazole (ProtoNix) 40 MG EC tabletIndicati ons:Gastroesop hageal reflux disease, unspecified whether esophagitis present Take 1 tablet (40mg) by mouth daily 90 tablet 2 024 2024 Discontinued(R eorder (will not trigger notification to Pharmacy)) busPIRone (Buspar) 7.5 MG tablet TAKE 1 TABLET (7.5 MG) BY MOUTH 2 TIMES DAILY. 60 tablet 025 2024 Discontinued(R eorder (will not trigger notification to Pharmacy)) QUEtiapine (SEROquel) 100 MG tablet TAKE 1 TABLET (100 MG) BY MOUTH ONCE DAILY. 30 tablet 025 2024 Discontinued(R eorder (will not trigger notification to Pharmacy)) gabapentin (Neurontin) 300 MG capsuleIndicat ions:Mood disorder (CMS/HCC) TAKE 1 CAPSULE (300 MG) BY MOUTH 2 TIMES DAILY. 60 capsule 025 2024 Discontinued(R eorder (will not trigger notification to Pharmacy)) Active Problems Problem Noted Date Diagnosed Date [...] (09/29/2024 12:38 PM EST): Reviewed results with December today. Lifestyle interventions encouraged. Plan to repeat labs fasting. Mood disorder 06/18/2024 Assessment & Plan (09/17/2024 9:23 PM EST): Hx of ADHD, MDD, and PTSD. Previously following with psych provider and team through [facility]. However, psych prescriber leaving, and in need of establishing with new provider. Bridge rx through PCP, scheduled for initial consult with [facility] Psych SPLICER OPERATOR No acute concerns, mental health stable Assessment [...] acute concerns, mental health stable Referral to [facility] BH team for BE with referral to psych prescriber - possibly telehealth 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 Assessment & Plan (12/28/2023 7:17 PM EDT): Diffuse enlargement, denies symptoms, Labs and ultrasound ordered Cigarette smoker 08/19/2023 Overview (08/19/2023): -Cigg/day: 5 -Encouraged smoking cessation resources such as pharmacomtherapy, [facility] smoking cessation group, and [facility] pharmacy smoking cessation clinic -Currently following with Sheron for assistance with smoking cessation Assessment & Plan (12/28/2023 7:17 PM EDT): Actively cutting back, has patches, declines further supports today Healthcare maintenance 07/30/2023 Assessment & Plan (09/17/2024 9:29 PM EST): -Optometry: referral to [facility] Eye Care previously placed -Pap: NILM, HPV neg on 08/17/23. Next due: 2027 -PE: due - Routine labs ordered today including asymptomatic STI screening - Refilled POP for contraception. Reviewed med safety and SE Assessment & Plan (07/31/2023 11:09 AM EST): -Optometry: referral to [facility] Eye Care previously placed -Pap: Pt reports it has been > 5 years since last pap. Missed last pap appt, scheduled with [facility] CNM -STI: previously ordered, pending -Dental: [...] organization. Date Type Department Care Team Description 01/16/2025 Telephone [facility] [address] [place] [address] Irish Sepulveda FNP Med Refill 01/03/2025 Refill [facility] MEDICINE [address] [place] [address] Irish Sepulveda FNP Mood disorder (CMS/HCC); Gastroesophageal reflux disease, unspecified whether esophagitis present 12/13/2024 Orders Only GENERIC EXTERNAL DATA DEPARTMENT Provider, Generic External Data 12/01/2024 Population Health Risk Score [facility] Department [address] [id number] Provider, Population Health Generic 11/30/2024 Telephone [facility] [address] [place] [address] Irish Sepulveda FNP Chart Prep 11/06/2024 Refill [facility] MEDICINE [address] [place] [address] Irish Sepulveda FNP Mood disorder (CMS/HCC) 10/25/2024 Refill [facility] [address] [place] [address] Irish Sepulveda FNP from Last 3 Months Immunizations Name Administration [...] 07/30/2024 07/30/2023 Dental X-Ray: Bitewings 08/24/2024 08/23/2023 Mammogram 2025 Depression Screening 07/20/2025 07/20/2024, 07/20/20 24 COVID-19 [...] Name Priority Date/Time Associated Diagnosis Comments NM GASTRIC EMPTYING SOLID Routine 12/28/2024 7:48 AM EDT NM HEPATOBILIARY W PHARM Routine 12/22/2024 7:38 [...] Relevant to Health Maintenance Results * NM Gastric Emptying Solid (12/28/2024 7:48 AM EDT) Anatomical Region Laterality Modality Body Nuclear Medicine 12/28/2024 7:48 AM EDT Narrative 12/28/2024 2:10 PM EDT ? [facility] ?[address] ?[place] [address] ?Nuclear Medicine Report ? Signed ? Patient: LaurachristianKristal elmore ?MR#: [id number] ?? 818 ? : 1985 ?Acct:[id number] ? Age/Sex: 39 / F ?ADM Date: 12/28/24 ? Loc: HO.NUCMED ? Attending Dr: Kristal Nguyen ANP-C ? Ordering Physician: Kristal Nguyen ?? Date of Service: 12/28/24 ?? Procedure(s): NM gastric emptying study ?? Accession Number(s): [id number] ? cc: Kristal Nguyen ANP-C; Irish Sepulveda ? EXAMINATION: ??NM RADIONUCLIDE SOLID FOOD GASTRIC EMPTYING 4-HOUR STUDY ? CLINICAL INFORMATION: ??R11.2 - Nausea with vomiting, unspecified ? COMPARISON: ?? None ? TECHNIQUE: ?? A standard meal consisting of 4 oz of Egg Beaters brand tagged with ?? 0.94 mCi Tc-99m Sulfur Colloid, 8 oz water and 1.5 slices of toast with ?? jelly was administered orally to the patient. Images were obtained ?? using a dual head gamma camera in the anterior and posterior ?? projections over of the stomach immediately post ingestion and at ?? hourly intervals up to 4 hours post ingestion. The anterior and ?? posterior counts at each time interval were averaged using the ?? geometric mean and expressed as percentage of the immediate post ?? ingestion counts. ? FINDINGS: ?? There is visualization of activity in the stomach immediately post ?? ingestion. As the study progresses, there is clearance of activity from ?? the stomach and visualization of progressively increasing small bowel ?? activity. By the end of the study, there is almost no retention noted ?? in the stomach. Retention in the stomach at each time interval was: ? 1 hour 74% (normal 37%-90%) ?? 2 hours 36% (normal 30%-60%) ?? 3 hours 22% ?? 4 hours 19% (normal 0%-10%) ? NM/NM gastric emptying study ?? IMPRESSION: ?? Mildly delayed gastric emptying at 4 hours. ? For solid meal, rapid gastric emptying is less than 30% at 60 minutes. ?? Delayed gastric emptying criteria is more than 60% remaining at 120 ?? minutes or more than 10% at 240 minutes. The 4-hour value is the best ?? discriminator of a normal or abnormal result). ? Gastric emptying study grading per JNMT Consensus Recommendations in ?? 2007 (https://tech.snmjournals.org/content/36/44) ? Grade 1 (mild retention): 11-20% at 4h ?? Grade 2 (moderate retention): 21-35% at 4h ?? Grade 3 (severe retention): 36-50% at 4h ?? Grade 4 (very severe retention): >50% retention at 4h ? Electronically signed by: ??Buddy Mckenzie MD ??12/28/2024 02:07 PM EDT ?? RP ? Dictated By: ?Buddy Mckenzie MD ? Signed By: ?<Electronically signed by Buddy Mckenzie MD in OV> ?12/28/24 1407 ? DD/ 0748 ? TD/TT: 12/28/24 1225 ? Service Center Technician: ? Procedure Note Tri, Tao - 12/28/2024 [facility] [address] [address] Nuclear Medicine Report Signed Patient: Kristal DensonMR#: [id number] 818 : 1985Acct:[id number] Age/Sex: 39 / FADM Date: 12/28/24 Loc: [facility] Attending Dr: Kristal ADAME Ordering Physician: Kristal Nguyen Date of Service: 12/28/24 Procedure(s): MI gastric emptying study Accession Number(s): [id number] cc: Kristal Nguyen; Irish Sepulveda EXAMINATION: MI RADIONUCLIDE SOLID FOOD GASTRIC EMPTYING 4-HOUR STUDY CLINICAL INFORMATION: R11.2 - Nausea with vomiting, unspecified COMPARISON: None TECHNIQUE: A standard meal consisting of 4 oz of Egg Beaters brand tagged with 0.94 mCi Tc-99m Sulfur Colloid, 8 oz water and 1.5 slices of toast with jelly was administered orally to the patient. Images were obtained using a dual head gamma camera in the anterior and posterior projections over of the stomach immediately post ingestion and at hourly intervals up to 4 hours post ingestion. The anterior and posterior counts at each time interval were averaged using the geometric mean and expressed as percentage of the immediate post ingestion counts. FINDINGS: There is visualization of activity in the stomach immediately post ingestion. As the study progresses, there is clearance of activity from the stomach and visualization of progressively increasing small bowel activity. By the end of the study, there is almost no retention noted in the stomach. Retention in the stomach at each time interval was: 1 hour 74% (normal 37%-90%) 2 hours 36% (normal 30%-60%) 3 hours 22% 4 hours 19% (normal 0%-10%) MI/MI gastric emptying study IMPRESSION: Mildly delayed gastric emptying at 4 hours. For solid meal, rapid gastric emptying is less than 30% at 60 minutes. Delayed gastric emptying criteria is more than 60% remaining at 120 minutes or more than 10% at 240 minutes. The 4-hour value is the best discriminator of a normal or abnormal result). Gastric emptying study grading per JNMT Consensus Recommendations in 2008 (https://tech.snmjournals.org/content/36/44) Grade 1 (mild retention): 11-20% at 4h Grade 2 (moderate retention): 21-35% at 4h Grade 3 (severe retention): 36-50% at 4h Grade 4 (very severe retention): >50% retention at 4h Electronically signed by: Buddy Mckenzie MD 12/28/2024 02:07 PM EDT RP Dictated By: Buddy Mckenzie MD Signed By: <Electronically signed by Buddy Mckenzie MD in OV> 12/28/24 1407 DD/ 0748 TD/TT: 12/28/24 1225 Service Center Technician: us [facility] External Provider IMG NM PROCEDURES Final Result * NM Hepatobiliary w Pharm (12/22/2024 7:38 AM EDT) Anatomical Region Laterality Modality Body Nuclear Medicine 12/22/2024 7:38 AM EDT Narrative 12/22/2024 11:24 AM EDT ? [facility] ?[address] ?[place] [address] ?Nuclear Medicine Report ? Signed ? Patient: Kristal Denson ?MR#: [id number] ?? 818 ? : 1985 ?Acct:[id number] ? Age/Sex: 39 / F ?ADM Date: 12/22/24 ? Loc: HO.NUCMED ? Attending Dr: Kristal Nguyen ANP-C ? Ordering Physician: Kristal Nguyen ANP-C ?? Date of Service: 12/22/24 ?? Procedure(s): NM hepatobiliary w pharm ?? Accession Number(s): [id number] ? cc: Kristal Nguyen ANP-C; Irish Sepulveda SOFTWARE PACKAGING ENGINEER ? EXAMINATION: NM HEPATOBILIARY WITH PHARM ? [...] ??Buddy Mckenzie MD ??12/22/2024 11:20 AM EDT ? Dictated By: ?Buddy Mckenzie MD ? Signed By: ?<Electronically signed by Buddy Mckenzie MD in OV> ?12/22/24 1120 ? DD/ 0738 ? TD/TT: 12/22/24 1045 ? Service Center Technician: ? Procedure Note Tao Bartlett - 12/22/2024 [place] [address] Nuclear Medicine Report Signed Patient: Lawrence Denson#: [id number] 818 : 1985Acct:[id number] Age/Sex: 39 / FADM Date: 12/22/24 Loc: [facility] Attending Dr: Kristal ADAME Ordering Physician: Kristal Nguyen Date of Service: 12/22/24 Procedure(s): NM hepatobiliary w pharm Accession Number(s): [id number] cc: Kristal Nguyen; Irish Sepulveda SOFTWARE PACKAGING ENGINEER EXAMINATION: NM HEPATOBILIARY WITH PHARM HISTORY: R11.2 [...] Buddy Mckenzie MD 12/22/2024 11:20 AM EDT Dictated By: Buddy Mckenzie MD Signed By: <Electronically signed by Buddy Mckenzie MD in OV> 12/22/24 1120 DD/ 0738 TD/TT: 12/22/24 1045 Service Center Technician: [facility] External Provider IMG NM PROCEDURES Final Result * (ABNORMAL) CBC auto differential (12/13/2024 2:31 PM EDT) White Blood Count 7.1 4.8 - 10.8 X10*3/uL [facility] Red Blood Count 5.30 4.20 - 5.50 X10*6/uL [facility] Hemoglobin 16.7(H) 12.0 - 16.0 g/dl [facility] Hematocrit 47.0 37.0 - 47.0 % [facility] Mean Corpuscular Volume 88.7 80.0 - 98.0 fL [facility] Mean Corpuscular Hemoglobin 31.5 27.0 - 33.0 pg [facility] Mean Corpuscular HGB Conc 35.5(H) 31.0 - 35.0 g/dl [facility] Red Cell Distribution Width 12.0 11.0 - 16.0 % [facility] Platelet Count 185 160 - 400 X10*3/uL [facility] Mean Platelet Volume 10.9 9.4 - 12.3 fL [facility] Neutrophils Percent Auto 64.0 45 - 73 % [facility] Imm Gran Pct Auto 0.4 0.0 - 0.4 % [facility] Lymphocytes Percent Auto 26.6 20 - 40 % [facility] Monocytes Percent Auto 6.7 2 - 11 % [facility] Eosinophils Percent Auto 1.7 0 - 4 % [facility] Basophils Percent Auto 0.6 0 - 2 % [facility] NRBC Pct Auto 0.0 0.0 - 0.2 /100WBC [facility] Neutrophils Absolute Auto 4.6 2.0 - 8.3 x10*3/uL [facility] Imm Gran Abs Auto 0.03 0.00 - 0.03 X10*3/uL [facility] Lymphocytes Absolute Auto 1.9 1.2 - 4.9 X10*3/uL [facility] Monocytes Absolute Auto 0.5 0.1 - 1.2 X10*3/uL [facility] Eosinophils Absolute Auto 0.1 0.0 - 0.4 X10*3/uL [facility] Basophils Absolute Auto 0.0 0.0 - 0.2 X10*3/uL [facility] NRBC Abs Auto 0.000 0.0 - 0.012 X10*3/uL [facility] 12/13/2024 2:31 PM EDT 12/13/2024 2:31 PM EDT us Generic External Data Provider LAB BLOOD ORDERAB LES Final Result [facility] [address] [place] [address] [phone] * (ABNORMAL) Comprehensive Metabolic Panel (12/13/2024 2:31 PM EDT) Sodium 137 135 - 145 mmol/L [facility] Potassium 4.9 3.3 - 5.1 mmol/L [facility] Chloride 104 96 - 108 mmol/L [facility] Carbon Dioxide 28 22 - 29 mmol/L [facility] Anion Gap 10(L) 12 - 20 [facility] Urea Nitrogen (BUN) 6(L) 9 - 16 mg/dL [facility] Creatinine, Serum 0.85 0.5 - 1.4 mg/dL [facility] Estimated Glomerular Filt Rate >60 [facility] Comment:Chronic Kidney Disea se: Estimated GFR < 60 mL/min/1.46f8Sgjgxv Kidney Disease: Estimated GFR < 15 mL/min/1.73m2 Glucose 298(H) 60 - 115 mg/dL [facility] Calcium 8.9 8.4 - 10.2 mg/dL [facility] Bilirubin, Total 0.8 0.0 - 1.0 mg/dL [facility] Aspartate Amino Transferase 94(H) 5 - 31 U/L [facility] Alanine Aminotransferase 112(H) 0 - 31 U/L [facility] Total Protein 7.3 6.5 - 8.0 g/dL [facility] Albumin Level 3.9 3.5 - 5.0 g/dL [facility] Alkaline Phosphatase 100 39 - 117 U/L [facility] 12/13/2024 2:31 PM EDT 12/13/2024 2:31 PM EDT us Generic External Data Provider LAB BLOOD ORDERAB LES Final Result [facility] [address] [place] [address] [phone] * HIV-1/2 Antigen and Antibodies, Fourth Generation, with Reflexes (09/11/2024 11:53 AM EST) HIV AB/AG Nonreactive Nonreactive [facility] Comment:HIV-1 p24 Ag and/or HIV-1/HIV-2 Ab not detected.A test result that is nonreactive does not exclude thepossibility of exposure to or infection with HIV-1 and/orHIV-2. Nonreactive results in this assay for individualswith prior exposure to HIV-1 and/or HIV-2 may be due toantigen and antibody levels that are below the limit ofdetection of this assay.The [place] HIV Ag/Ab Combo assay result andsupplemental assay results should be interpreted inconjunction with the patient's clinical presentation,history and other laboratory results. If the results areinconsistent with clinical evidence, additional testing issuggested to confirm the result. Blood Venous blood specimen / Unknown 09/11/2024 11:53 AM EST 09/11/2024 3:01 PM EST us Irish Sepulveda SOFTWARE PACKAGING ENGINEER LAB BLOOD ORDERABLES Final Res ult [facility] [address] [place] [phone] * (ABNORMAL) Lipid Panel, Standard (09/11/2024 11:53 AM EST) Triglycerides 269(H) <150 mg/dL [facility] Comment:Desirable Triglyceri de: less than 150 mg/dLBorderline High Triglyceride 150-199 mg/dLHigh Triglyceride: 200-499 mg/dLVery High Triglyceride: greater than or equal to 5OO mg/dL Cholesterol 187 <200 mg/dL [facility] Comment:Desirable Cholestero l: less than 200 mg/dLBorderline High Cholesterol: 200-239 mg/dLHigh Cholesterol: greater than 239 mg/dL LDL Cholesterol Calculated 106(H) <100 mg/dL [facility] Comment:Desirable LDL: less than 100 mg/dLNear Optimal/Above Optimal LDL: 110- 129 mg/dLBorderline High LDL: 130-159 mg/dLHigh LDL: 160-189 mg/dLVery High LDL: greater than or equal to 190 mg/dL HDL Cholesterol 28(L) >40 mg/dL [facility] Comment:Desirable HDL: great er than 40 mg/dL Note: This HDL assay may give artificially low results in patients with liver disease. Blood Venous blood specimen / Unknown 09/11/2024 11:53 AM EST 09/11/2024 3:01 PM EST us Irish Sepulveda SOFTWARE PACKAGING ENGINEER LAB BLOOD ORDERABLES Final Res ult [facility] [address] [place] [address] [phone] * HPV mRNA E6/E7 w/Reflex to HPV Genotypes 16, 18/45 (08/17/2023 1:41 PM EST) HPV nRNA E6/E7 Not Detected Not Detected [facility] Comment:Methodology: Transcr iption-Mediated AmplificationThis assay detects E6/E7 viral messenger RNA (mRNA) from 14high-risk HPV types (16,18,31,33,35,39,45,51,52,56,58,59,66,68).Cervical sources are required for HPV testing.If a vaginal source from a patient who has had atotal hysterectomy with removal of cervix wassubmitted, please contact the testing laboratoryfor alternative testing options.For additional information, please refer tohttp://education.GameOn/faq/TRP020h2(This link if provided for information/educational purposes only.)THIS TEST WAS PERFORMED AT:[facility] [place] [phone] M LEVY MD HPV mRNA E6/E7 [facility] HPV 16 RNA [facility] HPV 18/45 RNA [facility] 08/17/2023 1:41 PM EST 08/18/2023 8:00 AM EST us Wyatt Baumann CN LAB CYTOLOGY ORDERABLES F inal Result [facility] [address], [place] [phone] * Pap Smear (08/17/2023 1:41 PM EST) 08/17/2023 1:41 PM EST 08/18/2023 8:00 AM EST Narrative [facility] - 08/26/2023 4:13 PM EST ----- ------- Name: Ronnie ?Age/Sex: 38/F ? : 1985 Unit#: [id number] ?? Attend Dr: WYATT BAUMANN CNM ?Re08/17/23 ?Status: DEP REF ? Location: HO.CHCLNP ? Disch: ? ----- ------- SPEC : [id number] ?RECD: 08/18/23 ? STATUS: ??SOUT ? REQ NUM: [id number] ? KARENA: 08/17/23 ? SUBM DR: WYATT [...] 66, 68) ?? HPV testing performed by [facility], [place], [place]. ??See reference laboratory ?? portion of the EMR for entire report. ?Clinical Information LMP: Amenorrheic on OCP Previous PAP test: 7 yrs, WNL ? Material Received ?? ThinPrep-Cervical ----- ------- Signed (signature on file) SUKHI Prince (ASCP) 08/26/23 1613 ? ----- ------- ? END OF REPORT ? Wyatt Baumann CNM LAB CYTOLOGY ORDERABLES F inal Result [facility] [address] [place] [address] [phone] from Last 3 Months or Most Recently Relevant to Health Maintenance Insurance [facility] C3 DENTAL-[facility] MEDICAID STAND ADULT Care Teams Employment And Claims Aide Relationship Specialty Start Date End Date Irish Sepulveda FNP [address] [place] [id number] PCP - General Family Medicine 11/12/21
--- OUTSIDE RECORDS SUMMARY | 2025-01-22 11:05 | XMS_ITS | Encounter Summary ---
Author Organization [employer] Address [address] [place] [address] Care Team Providers Care Transit Operator Name Role Phone Irish Sepulveda Primary Care Provider [phone] Reason for Visit * Reason Onset Date Comments Med Refill 01/16/2025 Encounter Details Date Type Department Care Team ([facility] Contact Info) Description 01/16/2025 Telephone [facility] [address] [place], [place] [phone] Irish Sepulveda FNP [address] [place] [address] Med Refill Social History Tobacco Use Types [...] encounter Miscellaneous Notes * Telephone Encounter - Tiana Leslie RN - 01/19/2025 10:30 AM EDT TC to pt. No answer. Voicemail left. * Telephone Encounter - JANI Mei - 01/18/2025 8:21 AM EDT Please call patient to clarify request below. I had previously been covering buspirone 7.5 mg twicedaily until she established with new psychiatrist. Has she seen new psych prescriber? Did they increase dose? If so, recommend requesting refill from their office. Thank you. * Telephone Encounter - Marimar Bae LPN - 01/16/2025 2:45 PM EDT Please review patient's request * Telephone Encounter - Lashawn Vann - 01/16/2025 2:25 PM EDT TC from pt requesting medication refill. Medications needing refill : busPIRone (Buspar) 15 MG tablet (pt stated dosage was increased) To be sent to: [facility] [place], [place] - [address] [facility] documented in this encounter Plan of Treatment Not on file documented as of this encounter Visit Diagnoses Not on filedocumented in this encounter Additional Health Concerns Assessment Noted Time PHQ-9 Depression Total Score: 14 024 1:30 PM EDT documented as of this encounter Care Teams Transit Operator Relationship Specialty Start Date End Date Irish Sepulveda FNP [address] [place] [address] PCP - General Family Medicine 11/12/21 documented as of this encounter
--- OUTSIDE RECORDS SUMMARY | 2025-01-22 11:05 | XMS_ITS | Encounter Summary ---
Author Organization [employer] Address [address] [place] [address] Care Team Providers Care Salon Supervisor Name Role Phone Irish Sepulveda Primary Care Provider [phone] Reason for Visit * Reason Onset Date Comments Appointment Request 05/05/2024 Encounter Details Date Type Department Care Team ([facility] Contact Info) Description 05/05/2024 Telephone [facility] MEDICINE [address] [place] [address] Irish Sepulveda FNP [address] [place] [address] Appointment Request Social History Tobacco Use Types [...] pt, left message for pt to call [facility] office. * Telephone Encounter - Teddy Roque - 05/05/2024 9:50 AM EDT Tc from pt requesting to reschedule todays sick onsite visit. Please contact pt at [phone]. documented in this encounter Plan of Treatment Not on file documented as of this encounter Visit Diagnoses Not on filedocumented in this encounter Additional Health Concerns Assessment Noted Time PHQ-9 Depression Total Score: 10 023 11:21 AM EST documented as of this encounter Care Teams Salon Supervisor Relationship Specialty Start Date End Date Irish Sepulveda FNP [address] [place] [address] PCP - General Family Medicine 11/12/21 documented as of this encounter
--- OUTSIDE RECORDS SUMMARY | 2025-01-22 11:05 | XMS_ITS | Encounter Summary ---
Author Organization [email or web address] Address [address] [place] [address] [address], [place] [address] Care Team Providers Care Agriculture Internship Name Role Phone Irish Sepulveda Primary Care Provider Reason for Visit * Reason Onset Date Comments US Order 06/21/2024 Encounter Details Date Type Department Care Team ([facility] Contact Info) Description 06/21/2024 Telephone [facility] MEDICINE [address] [place] [address] Irish Sepulveda FNP [address] [place] [address] US Order Social History Tobacco Use Types [...] any questions you can contact Mansi at [phone]. * Telephone Encounter - Teddy Roque - 06/21/2024 10:03 AM EDT Tc from Edilberto with [facility] calling in regards US order of the abdomen stating it is missing pcp signature. They're requesting for a order to be resent with signature. If any questions you can contact Edilberto at [phone]. documented in this encounter Plan of Treatment Not on file documented as of this encounter Visit Diagnoses Not on filedocumented in this encounter Additional Health Concerns Assessment Noted Time PHQ-9 Depression Total Score: 10 023 11:21 AM EST documented as of this encounter Care Teams Agriculture Internship Relationship Specialty Start Date End Date Irish Sepulveda FNP [address] [place] [address] PCP - General Family Medicine 11/12/21 documented as of this encounter
== END 2025-01-22 10:29 | disposition home or self-care (01) ==
LOC: HO.HGS 09:56
PROVIDERS: PCP Registered Nurse; Referring Provider Nurse Practitioner; Visit Provider Surgery
DX: R94.8 Abnormal results of function studies of other organs and systems (principal)
CPT/HCPCS: 99203

== ENCOUNTER → 2025-01-22 09:55 | Outpatient (BNVA) | payer MEDICAID, SELFPAY | PROVIDERS: PCP Registered Nurse; Referring Provider Nurse Practitioner; Visit Provider Surgery | DX: R94.8 Abnormal results of function studies of other organs and systems (principal) | CPT/HCPCS: 99202 ==

== ENCOUNTER 2025-02-16 09:03 | Outpatient (REF) | payer MEDICAID, SELFPAY ==
--- NOTE | ~2025-02-16 | FL_ITS ---
EXAMINATION: XR BARIUM SWALLOW CLINICAL INFORMATION: Nausea with vomiting. COMPARISON: None available. TECHNIQUE: Routine barium swallow was performed in upright and lying position. FINDINGS: Following oral administration of thick barium and barium coated saltine crackers is normal propagation bolus from the oral cavity through the pharynx, esophagus into stomach without any evidence of obstruction, narrowing or stricture. No laryngeal penetration or aspiration seen. On placing patient's prone lying and oral administration of thin barium there is normal distention of esophagus without any obstruction, narrowing or stricture. There is no gastroesophageal reflux or hiatal hernia. FLUOROSCOPY TIME: 1 minute 42 seconds Dose area product: 1491 uGy-m2 (microgray-meter squared) FL/FL barium swallow IMPRESSION: Unremarkable barium swallow exam. Examination. Electronically signed by: Jules Renee MD 02/16/2025 11:12 AM EDT
--- OUTSIDE RECORDS SUMMARY | 2025-02-16 09:11 | XMS_ITS | Encounter Summary ---
Author Organization [employer] Address [address] [place] [address] [place] [address] Care Team Providers Care Site Auditor Name Role Phone Irish Sepulveda Primary Care Provider [phone] Reason for Visit * Reason Comments Med Refill Encounter Details Date Type Department Care Team ([facility] st Contact Info) Description 11/30/2022 Refill [facility] MEDICINE [address] [place] [address] Irish Sepulveda FNP [address] [place] [address] Gastroesophageal reflux disease, unspecified whether esophagitis present [...] present documented in this encounter Care Teams Site Auditor Relationship Specialty Start Date End Date Irish Sepulveda FNP [address] [place] [address] PCP - General Family Medicine 11/12/21 documented as of this encounter
== END 2025-02-16 09:04 | disposition home or self-care (01) ==
LOC: HO.XRAY 09:03
PROVIDERS: PCP Registered Nurse; Visit Provider Nurse Practitioner
DX: R11.2 Nausea with vomiting, unspecified (principal); K21.9 Gastro-esophageal reflux disease without esophagitis
CPT/HCPCS: 74220

== ENCOUNTER → 2025-02-16 09:05 | Outpatient (BNV) | payer MEDICAID, SELFPAY | PROVIDERS: PCP Registered Nurse; Visit Provider Radiology Diagnostic Radiology | DX: R11.2 Nausea with vomiting, unspecified (principal) | CPT/HCPCS: 74246 ==

== ENCOUNTER 2025-03-13 09:22 | Outpatient (REF) | payer MEDICAID, SELFPAY ==
--- NOTE | ~2025-03-13 | CT_ITS ---
CLINICAL HISTORY: R10.9 - Unspecified abdominal pain CT abdomen and pelvis with contrast Comparison: None provided Findings: No consolidation or effusion. Unremarkable gallbladder and solid organs. No urolithiasis. No bowel obstruction, pneumoperitoneum, or pneumatosis. Ebno-ju-kbxoonrz colonic stool burden. Pelvic contents unremarkable. Normal appendix. The bones are intact. IMPRESSION: No acute findings. Yqoc-ne-xekzmoda colonic stool burden. This document has been electronically signed by: Zena Whiting MD on 03/13/2025 22:11:10
[2025-03-13] MEDS: iohexoL 350 MG/ML 100 ML INFUS..BTL IV (09:57)
--- OUTSIDE RECORDS SUMMARY | 2025-03-13 10:00 | XMS_ITS | Encounter Summary ---
Author Organization [employer] [facility] Address [address] [place] [address] Care Team Providers Care Playground Equipment Erector Name Role Phone Irish Sepulveda Primary Care Provider Reason for Visit * Reason Comments Med Refill Encounter Details Date Type Department Care Team (Late st Contact Info) Description 11/30/[address] [facility] MEDICINE [address] [place] [address] Irish Sepulveda FNP [address] [place] [address] Gastroesophageal reflux disease, unspecified whether esophagitis present [...] as of this encounter Plan of Treatment Upcoming Encounters Date Type Department Care Team (Late st Contact Info) Description 05/07/2025 9:15 AM EDT Office Visit [facility] PEDS [address] [place], [place] [id number] Irish Sepulveda FNP [address] [place] [address] documented as of this encounter Visit Diagnoses Diagnosis Gastroesophageal reflux disease, unspecified whether esophagitis present documented in this encounter Care Teams Playground Equipment Erector Relationship Specialty Start Date End Date Irish Sepulveda FNP [address] [place] [address] PCP - General Family Medicine 11/12/21 documented as of this encounter
== END 2025-03-13 09:23 | disposition home or self-care (01) ==
LOC: HO.CT 09:22
PROVIDERS: PCP Registered Nurse; Visit Provider Surgery
DX: R10.9 Unspecified abdominal pain (principal); G89.29 Other chronic pain
CPT/HCPCS: 74177; Q9967

== ENCOUNTER → 2025-03-13 09:24 | Outpatient (BNV) | payer MEDICAID, SELFPAY | PROVIDERS: PCP Registered Nurse; Visit Provider Student in an Organized Health Care Education/Training Program | DX: R10.9 Unspecified abdominal pain (principal) | CPT/HCPCS: 74177 ==

== ENCOUNTER 2025-03-16 10:26 | Outpatient (AMB) | payer MEDICAID, SELFPAY ==
[2025-03-16 10:27] VITALS: BP 109/66; PULSE 64; BMI 33.1
--- NOTE | 2025-03-16 10:27 | A.OFFVIS_ITS ---
Vital Signs 03/16/25 10:27 Height 5 ft 2 in Weight 180 lb 12.465 oz BMI 33.1 BP 109/66 Blood Pressure Location Lt brachial Position Sitting Pulse 64 Intake Visit Reasons: Follow up gastric emptying Intake Note: December presents in the office as a follow up for GES. CC: She states that she has all the same issues with her stomach. She states she is here for results to the GES. Tape Weaver Required: No Allergies Heparin Analogues (Heparin Agents) Allergy (Intermediate, Unverified 03/16/25 10:31) HIVES codeine (CODEINE) Allergy (Mild, Unverified 03/16/25 10:31) HIVES heparin Allergy (Unknown, Uncoded 03/16/25 10:31) hives tylenol with codeine Allergy (Unknown, Uncoded 03/16/25 10:31) hives HPI HPI Follow up gastric emptying: Details: Assessment & Plan (1) GERD (gastroesophageal reflux disease): Code(s): K21.9 - Gastro-esophageal reflux disease without esophagitis Category: Medical (2) Nausea and vomiting: Code(s): R11.2 - Nausea with vomiting, unspecified Category: Medical Plan She has had years of severe and sudden onset of nausea and at times all day vomiting. She also will have severe sulfur burps and farts and then she will have severe all day N/V. She also has some HB issues but the other syndrome will occur unevenly and unpredictably. She will have severe bout atleast twice a month. She is currently on pantoprazole and it has helped but she still will feels acid coming up my throat and she will have tyo take 3-4 of the pantoprazole. At times she has presented to the ER for this and they would just have her zofran with some relief. This all DID start when she was with her son 8 years ago. The sx have worsened over the past 2 years. She denies any abd pain or CIC/diarrhea. Her brother and father get the sulfur burps as well. She is unsure how they handle this as they do not speak much. Her mother and sister both have had choles and the patient had and [place] [facility] [place] showed a 1.7cm gallstone. Will give zofran as temp measure, continues pantoprazole. Ordering HIDA, GES, barium swallow and HP stool along with basic labs. ROV next available. Orders: Orders Complete Blood Count Auto Diff Today K21.9 - Gastro-esophageal reflux disease without esophagitis, R11.2 - Nausea with vomiting, unspecified Comprehensive Met. Panel Today K21.9 - Gastro-esophageal reflux disease without esophagitis, R11.2 - Nausea with vomiting, unspecified NM hepatobiliary w pharm Today K21.9 - Gastro-esophageal reflux disease without esophagitis, R11.2 - Nausea with vomiting, unspecified NM gastric emptying study Today K21.9 - Gastro-esophageal reflux disease without esophagitis, R11.2 - Nausea with vomiting, unspecified FL barium swallow Today K21.9 - Gastro-esophageal reflux disease without esophagitis, R11.2 - Nausea with vomiting, unspecified H pylori Ag Stool Today K21.9 - Gastro-esophageal reflux disease without esophagitis, R11.2 - Nausea with vomiting, unspecified Medications: New ondansetron 4 mg PO BID-TID PRN 14 tabs 0RF nausea and vomiting R11.2 - Nausea with vomiting, unspecified LABS Laboratory Tests 12/13/24 12/14/24 14:31 11:07 WBC 7.1 Hgb 16.7 H Hct 47.0 Plt Count 185 Estimated GFR > 60 Random Glucose 298 H Total Bilirubin 0.8 AST 94 H ALT 112 H Alkaline Phosphatase 100 Stool H. pylori Ag neg HIDA 12/22/2024 IMPRESSION: No significant gallbladder emptying is seen after CCK administration, consistent with biliary dyskinesia. GES 12/28/2024 IMPRESSION: Mildly delayed gastric emptying at 4 hours. BARIUM SWALLOW 02/16/2025 FINDINGS: Following oral administration of thick barium and barium coated saltine crackers is normal propagation bolus from the oral cavity through the pharynx, esophagus into stomach without any evidence of obstruction, narrowing or stricture. No laryngeal penetration or aspiration seen. On placing patient's prone lying and oral administration of thin barium there is normal distention of esophagus without any obstruction, narrowing or stricture. There is no gastroesophageal reflux or hiatal hernia. FLUOROSCOPY TIME: 1 minute 42 seconds Dose area product: 1491 uGy-m2 (microgray-meter squared) FL/FL barium swallow IMPRESSION: Unremarkable barium swallow exam. Examination. CT ABDOMEN AND PELVIS ORDERED BY DR. RUKCER Findings: No consolidation or effusion. Unremarkable gallbladder and solid organs. No urolithiasis. No bowel obstruction, pneumoperitoneum, or pneumatosis. Keeg-ka-jrhlsmyf colonic stool burden. Pelvic contents unremarkable. Normal appendix. The bones are intact. IMPRESSION: No acute findings. Sffo-uq-bfdntjdv colonic stool burden. TODAYS VISIT She received the Creon in his taking it. This seems to have helped quite a bit with the pain in the right upper quadrant at least. It has not helped with her sensation of sulfur burps. Her nausea and vomiting persists however and she can not seem to find any food triggers for it. She notes that the Creon seems to make her very thirsty. Cat scan seem to show constipation and she admits she only moves her bowels every 2-3 days. Although she feels this is her norm and she is not uncomfortable this could be contributing to the mild delay in gastric emptying into some of the symptoms so I think we need to start her on constipation regimen. We are going to start with MiraLax at night and titrate to affect her side effect. Confounding factors are: Suboxone, Seroquel She has daily nausea that is intermittent and will last about 15 minutes a time, 2-3 times a day. The vomiting is r/t the sulfur burps and used to be once q6mos and not it is 2-3 times a month. The sulfur burps precede the vomiting. SCOTTY culver has worked for this in the ER. I want to trial reglan 5mg for the N/V given the mild delay of gastric emptying, managing the CIC may also alleviate this. She has seen Dr. Rucker who ordered CT to r/o any other contributing causes but they are discussing possible cholecystectomy. In the meantime the creon has at least helped with the RUQ pain. ROV 5-6 weeks. [facility] Medical History Chronic abdominal pain Abnormal biliary HIDA scan Asthma Chronic hepatitis C Nausea and vomiting Goiter Obesity (BMI 30-39.9) Opioid use disorder Anxiety Surgical History History of section Family History Paternal Grandfather Lung cancer Prostate cancer Paternal Grandmother Lung cancer Paternal Uncle Prostate cancer Paternal Uncle Lung cancer Social History Alcohol intake: current Alcohol intake frequency: holidays/special occasions only Alcohol type: wine Patient Tobacco Use Status: Current everyday Tobacco user Cigarette Packs Per Day: 1 Substance Use Type: Marijuana Review of Systems Const Denies fatigue, Denies fever(s), Denies night sweats, Denies poor appetite and Denies weight loss ENT Reports Normal hearing present, Denies dental pain, Denies dysphagia, Denies hearing loss, Denies mouth pain, Denies odynophagia, Denies throat swelling, Denies tongue swelling and Reports other (Dentition adequate) Card Reports no additional complaints Resp Reports no additional complaints GI Details: Reports abdominal pain, Denies melena, Reports bloating, Denies hematochezia, Reports constipation, Denies GI cramping, Denies dysphagia, Denies excessive flatus, Denies early satiety, Reports heartburn, Denies diarrhea, Reports nausea, Denies odynophagia, Reports vomiting and Denies hematemesis Skin/Breast Denies pruritus, Denies lesions, Denies rash and Denies jaundice Neuro Reports Normal hearing present and Denies Abnormal speech present Endo Denies fatigue Aller/Immun Denies throat swelling and Denies tongue swelling Physical Exam Vital Signs: Last Vital Signs Pulse 64 03/16/25 10:27 BP 109/66 03/16/25 10:27 BMI result Body Mass Index 33.1 Const General: cooperative, no acute distress, well developed and well groomed Nutritional Appearance: well nourished and obese Orientation/consciousness: oriented to person, oriented to place and oriented to time Limitations: No language barrier HEENT Head: Yes normocephalic and Yes atraumatic Eyes General: appearance normal, both eyes and all related structures Pupils: Equal, round and reactive pupils present Neck Neck: Yes normal visual inspection and Yes no lymphadenopathy Thyroid: Thyroid normal Resp Effort & Inspection: normal respiratory effort and able to speak in complete sentences Auscultation: clear to auscultation bilaterally Cardio Rate: regular rate Rhythm: regular rhythm Heart sounds: Normal, physiologic split S2 sound present Peripheral pulses: radial pulses present and posterior tibial pulses present GI Inspection: No distended, No Abdominal panniculus present and Yes obesity Palpation (GI): Soft to palpation, nontender, no guarding, not rigid and No hepatosplenomegaly present Percussion: Yes normal to percussion Auscultation: normal bowel sounds Rectal Exam - Female: deferred Skin General skin exam: no rashes or lesions noted, turgor normal, skin not dry, no jaundice, No spider nevi and no striae Rashes: no rashes Nails: normal Neuro General: oriented to person, oriented to place and oriented to time Cranial nerves: Yes Equal, round and reactive pupils present and Yes Normal hearing present Speech: No Abnormal speech present Extrem General: Yes normal to inspection, No clubbing, No cyanosis and No edema Psych Appearance: grossly normal and well kempt Mental Status: mental status grossly normal Speech and movement: Normal speech and movement present Affect: normal affect Attitude: cooperative Thought process: Normal thought process present and not confabulating Thought content: Normal thought content present Insight: Fair insight present (Psych) Judgement: Fair judgement present (Psych) Results Reviewed Results Reviewed: Laboratory Tests 12/13/24 12/14/24 14:31 11:07 WBC 7.1 Hgb 16.7 H Hct 47.0 Plt Count 185 Estimated GFR > 60 Random Glucose 298 H Total Bilirubin 0.8 AST 94 H ALT 112 H Alkaline Phosphatase 100 Stool H. pylori Ag neg HIDA 12/22/2024 IMPRESSION: No significant gallbladder emptying is seen after CCK administration, consistent with biliary dyskinesia. GES 12/28/2024 IMPRESSION: Mildly delayed gastric emptying at 4 hours. BARIUM SWALLOW 02/16/2025 FINDINGS: Following oral administration of thick barium and barium coated saltine crackers is normal propagation bolus from the oral cavity through the pharynx, esophagus into stomach without any evidence of obstruction, narrowing or stricture. No laryngeal penetration or aspiration seen. On placing patient's prone lying and oral administration of thin barium there is normal distention of esophagus without any obstruction, narrowing or stricture. There is no gastroesophageal reflux or hiatal hernia. FLUOROSCOPY TIME: 1 minute 42 seconds Dose area product: 1491 uGy-m2 (microgray-meter squared) FL/FL barium swallow IMPRESSION: Unremarkable barium swallow exam. Examination. CT ABDOMEN AND PELVIS ORDERED BY DR. RUCKER Findings: No consolidation or effusion. Unremarkable gallbladder and solid organs. No urolithiasis. No bowel obstruction, pneumoperitoneum, or pneumatosis. Sqsu-fc-svoblwnl colonic stool burden. Pelvic contents unremarkable. Normal appendix. The bones are intact. IMPRESSION: No acute findings. Irji-gh-zijzofif colonic stool burden. Assessment & Plan Assessment & Plan (1) Acalculous cholecystitis: Code(s): K81.9 - Cholecystitis, unspecified Category: Medical (2) Abnormal biliary HIDA scan: Code(s): R94.8 - Abnormal results of function studies of other organs and systems Category: Medical (3) GERD (gastroesophageal reflux disease): Code(s): K21.9 - Gastro-esophageal reflux disease without esophagitis Category: Medical (4) Nausea and vomiting: Code(s): R11.2 - Nausea with vomiting, unspecified Category: Medical (5) Chronic idiopathic constipation: Code(s): K59.04 - Chronic idiopathic constipation Category: Medical Plan She received the Creon in his taking it. This seems to have helped quite a bit with the pain in the right upper quadrant at least. It has not helped with her sensation of sulfur burps. Her nausea and vomiting persists however and she can not seem to find any food triggers for it. She notes that the Creon seems to make her very thirsty. Cat scan seem to show constipation and she admits she only moves her bowels every 2-3 days. Although she feels this is her norm and she is not uncomfortable this could be contributing to the mild delay in gastric emptying into some of the symptoms so I think we need to start her on constipation regimen. We are going to start with MiraLax at night and titrate to affect her side effect. Confounding factors are: Suboxone, Seroquel. She has daily nausea that is intermittent and will last about 15 minutes a time, 2-3 times a day. The vomiting is r/t the sulfur burps and used to be once q6mos and not it is 2-3 times a month. The sulfur burps precede the vomiting. SCOTTY culver has worked for this in the ER. I want to trial reglan 5mg for the N/V given the mild delay of gastric emptying discovered on the gastric emptying study, managing the CIC may also alleviate this. She has seen Dr. Rucker who ordered CT to r/o any other contributing causes but they are discussing possible cholecystectomy. In the meantime the creon has at least helped with the RUQ pain. ROV 5-6 weeks. Medications: New polyethylene glycol 3350 (Miralax) 17 grams PO .qhs 100 ea 6RF K59.04 - Chronic idiopathic constipation metoclopramide HCl (Reglan) 5 mg PO TID PRN 90 tabs 1RF nausea and vomiting R11.2 - Nausea with vomiting, unspecified Coding Level of Care Code Est Pt Level 4 (73712) Diagnoses Acalculous cholecystitis K81.9 Abnormal biliary HIDA scan R94.8 GERD (gastroesophageal reflux disease) K21.9 Nausea and vomiting R11.2 Chronic idiopathic constipation K59.04 Time Spent (min) 37
--- OUTSIDE RECORDS SUMMARY | 2025-03-16 11:13 | XMS_ITS | Encounter Summary ---
Author Organization [employer] [facility] Address [address] [place] [address] Care Team Providers Care Edging Supervisor Name Role Phone Irish Sepulveda Primary Care Provider [phone] Reason for Visit * Reason Comments Med Refill Encounter Details Date Type Department Care Team (Late st Contact Info) Description 11/30/2022 Refill [facility] MEDICINE [address] [place] [address] Irish Sepulveda FNP [address] [place] [address] Gastroesophageal reflux disease, unspecified whether esophagitis present [...] Description 05/07/2025 9:15 AM EDT Office Visit [facility] [address] [place], [place] [phone] Irish Sepulveda FNP [address] [place] [address] documented as of this encounter Visit Diagnoses Diagnosis Gastroesophageal reflux disease, unspecified whether esophagitis present documented in this encounter Care Teams Edging Supervisor Relationship Specialty Start Date End Date Irish Sepulveda FNP [address] [place] [address] PCP - General Family Medicine 11/12/21 documented as of this encounter
== END 2025-03-16 10:59 | disposition home or self-care (01) ==
LOC: HO.HGI 10:26
PROVIDERS: PCP Registered Nurse; Visit Provider Nurse Practitioner
DX: K81.9 Cholecystitis, unspecified (principal); R94.8 Abnormal results of function studies of other organs and systems; K21.9 Gastro-esophageal reflux disease without esophagitis; R11.2 Nausea with vomiting, unspecified; K59.04 Chronic idiopathic constipation
CPT/HCPCS: 99214

== ENCOUNTER → 2025-03-16 10:26 | Outpatient (BNVA) | payer MEDICAID, SELFPAY | PROVIDERS: PCP Registered Nurse; Visit Provider Nurse Practitioner | DX: K21.9 Gastro-esophageal reflux disease without esophagitis (principal); R11.2 Nausea with vomiting, unspecified; R94.8 Abnormal results of function studies of other organs and systems; K81.9 Cholecystitis, unspecified; K59.04 Chronic idiopathic constipation | CPT/HCPCS: 99212 ==

== ENCOUNTER 2025-04-11 14:43 | Outpatient (AMB) | payer MEDICAID, SELFPAY ==
--- NOTE | 2025-04-11 14:45 | A.OFFVIS_ITS ---
Vital Signs 04/11/25 14:50 Height 5 ft 2 in Weight 198 lb BMI 36.2 BP 116/67 Blood Pressure Location Rt brachial Position Sitting Pulse 72 Intake Visit Reasons: s/p 03/13/CT Intake Note: Patient here s/p abdomen pelvis CT on 03-13-2025. Patient c/o: RUQ pain, nausea, vomiting. Loosing weight. Drywall Boardhanger Required: No Accompanied by: mother Karla Denson Allergies Heparin Analogues (Heparin Agents) Allergy (Intermediate, Unverified 04/11/25 14:45) HIVES codeine (CODEINE) Allergy (Mild, Unverified 04/11/25 14:45) HIVES heparin Allergy (Unknown, Uncoded 04/11/25 14:45) hives tylenol with codeine Allergy (Unknown, Uncoded 04/11/25 14:45) hives HPI HPI s/p 03/13/CT: Details: [age] year old female here for follow-up for biliary dyskinesia. She has a long history of GI issues. She says she had she has diffuse abdominal pain, not confined to the right upper quadrant, for about 5 years now. This would be periodic and sometimes food last 4 days. She says that this is not at all related to food intake. She says that this may have been worsening for the past few months. She says she has lost maybe about over 10 lb the past 2 months or so. She says that she also has periodic vomiting without any known precipitating factor. She says she ?burps lot?. She denies any diarrhea or constipation. She had an ultrasound in [facility] which did not show any gallstones She however with a HIDA scan showing very poor ejection fraction so we referred to me. I had sent her for a CAT scan her chronic GI problems before scheduling her for cholecystectomy and she is here to discuss this. [facility] Medical History (Updated 04/11/25 @ 15:03 by Faisal Rucker MD) Biliary dyskinesia Chronic abdominal pain Abnormal biliary HIDA scan Asthma Chronic hepatitis C Nausea and vomiting Goiter Obesity (BMI 30-39.9) Opioid use disorder Anxiety Surgical History History of section Family History Paternal Grandfather Lung cancer Prostate cancer Paternal Grandmother Lung cancer Paternal Uncle Prostate cancer Paternal Uncle Lung cancer Social History Alcohol intake: current Alcohol intake frequency: holidays/special occasions only Alcohol type: wine Patient Tobacco Use Status: Current everyday Tobacco user Cigarette Packs Per Day: 1 Substance Use Type: Marijuana Physical Exam Vital Signs: Last Vital Signs Pulse 72 04/11/25 14:50 BP 116/67 04/11/25 14:50 BMI result Body Mass Index 36.2 Assessment & Plan Assessment & Plan (1) Biliary dyskinesia: Code(s): K82.8 - Other specified diseases of gallbladder Category: Medical Plan: Her abdominal CAT scan does not suggest any other intra-abdominal pathology . Her HIDA scan had previously showed a poorly ricky gallbladder. She continues to have recurrent pain and discomfort mostly in the right side of her abdomen although she says this has is also to diffuse. I therefore reviewed with her the technique of laparoscopic cholecystectomy for biliary dyskinesia. I explained the technique of this procedure as well as the possible conversion to open. I reviewed the risks including but not limited to bleeding, infections, injury to other organs including bowel, liver, bile duct, bile leak, as well as the benefits and alternatives. I explained to her what to expect postoperatively. She also understands that there is no guarantee that all her GI complaints would resolve with cholecystectomy. She understands and wants to proceed. Her mother was with her during the visit. Coding Level of Care Code Est Pt Level 3 (35880) Diagnoses Biliary dyskinesia K82.8
[2025-04-11 14:50] VITALS: BP 116/67; PULSE 72; BMI 36.2
--- OUTSIDE RECORDS SUMMARY | 2025-04-11 15:15 | XMS_ITS | Encounter Summary ---
Author Organization [facility] Address [address] [place] [address] Care Team Providers Care Commercial Account Officer Name Role Phone Irish Sepulveda Primary Care Provider [phone] Reason for Visit * Reason Comments Med Refill Encounter Details Date Type Department Care Team (Late st Contact Info) Description 11/30/2022 Refill [facility] [address] [place] [address] Irish Sepulveda FNP [address] [place] [address] Gastroesophageal reflux disease, unspecified whether esophagitis present [...] Description 05/07/2025 9:15 AM EDT Office Visit [facility] [address] [place], [place] [id number] Irish Sepulveda FNP [address] [place] [address] documented as of this encounter Visit Diagnoses Diagnosis Gastroesophageal reflux disease, unspecified whether esophagitis present documented in this encounter Care Teams Commercial Account Officer Relationship Specialty Start Date End Date Irish Sepulveda FNP [address] [place] [address] PCP - General Family Medicine 11/12/21 documented as of this encounter
== END 2025-04-11 15:09 | disposition home or self-care (01) ==
LOC: HO.HGS 14:44
PROVIDERS: PCP Registered Nurse; Visit Provider Surgery
DX: K82.8 Other specified diseases of gallbladder (principal)
CPT/HCPCS: 99213

== ENCOUNTER → 2025-04-11 14:43 | Outpatient (BNVA) | payer MEDICAID, SELFPAY | PROVIDERS: PCP Registered Nurse; Visit Provider Surgery | DX: K82.8 Other specified diseases of gallbladder (principal) | CPT/HCPCS: 99212 ==

== ENCOUNTER 2025-04-20 12:10 | Outpatient (REF) | payer MEDICAID, SELFPAY ==
--- OUTSIDE RECORDS SUMMARY | 2025-04-20 12:14 | XMS_ITS | Encounter Summary ---
Author Organization [facility] Address [address] [place] [address] Care Team Providers Care Boilermaker Welder Name Role Phone Irish Sepulveda Primary Care Provider [phone] Reason for Visit * Reason Comments Med Refill Encounter Details Date Type Department Care Team (Late st Contact Info) Description 11/30/[address] [facility]INE [address] [place] [address] Irish Sepulveda FNP [address] [place] [address] Gastroesophageal reflux disease, unspecified whether esophagitis present [...] [facility] [address] [place], [place] [id number] Irish Sepulveda FNP [address] [place] [address] documented as of this encounter Visit Diagnoses Diagnosis Gastroesophageal reflux disease, unspecified whether esophagitis present documented in this encounter Care Teams Boilermaker Welder Relationship Specialty Start Date End Date Irish Sepulveda FNP [address] [place] [address] PCP - General Family Medicine 11/12/21 documented as of this encounter
[2025-04-20 12:59] LABS: Hemoglobin A1C 426.2322 umol/L; Total Hemoglobin (HGBA1C) 4426.1082 umol/L
[2025-04-20 13:51] LABS: Alanine Aminotransferase 74 U/L (0-31); Albumin Level 4.0 g/dL (3.5-5.0); Alkaline Phosphatase 98 U/L (39-117); Aspartate Amino Transferase 55 U/L (5-31); Blood Urea Nitrogen 6 mg/dL (9-16); Cholesterol 230 mg/dL (<200); Estimated Glomerular Filt Rate > 60; HDL Cholesterol 32 mg/dL (>40); Total Protein 7.7 g/dL (6.5-8.0)
[2025-04-20 14:00] LABS: Triglycerides 158 mg/dL (<150)
== END 2025-04-20 12:11 | disposition home or self-care (01) ==
LOC: HO.LAB 12:10
PROVIDERS: PCP Registered Nurse; Visit Provider Surgery
DX: G89.29 Other chronic pain (principal); R10.9 Unspecified abdominal pain; R73.9 Hyperglycemia, unspecified
CPT/HCPCS: 36415; 80061; 80076; 82565; 83036; 84520

== ENCOUNTER 2025-04-26 13:31 | Outpatient (AMB) | payer MEDICAID, SELFPAY ==
--- OUTSIDE RECORDS SUMMARY | 2025-04-26 13:35 | XMS_ITS | Encounter Summary ---
Author Organization [facility] Address [address] [place] [address] [address] [place] [address] Care Team Providers Care Buyer Internship Name Role Phone Irish Sepulveda JANI Primary Care Provider [phone] Reason for Visit * Reason Onset Date Comments Care Coordination 04/20/2025 Referral 04/20/2025 Encounter Details Date Type Department Care Team ([facility] st Contact Info) Description 04/20/2025 Results Follow-Up [facility]INE [address] [place] [address] Sheri Pak MD [address] [place] [address] Hemoglobin A1c Social History Tobacco Use Types Packs/Day Years [...] AM EDT documented as of this encounter Progress Notes * JANI Mei - 04/23/2025 9:00 AM EDT Noted, thank you very much. I will plan to see her on 05/07 and will consider start of additional med then so that her body has a few weeks to acclimate to the metformin. documented in this encounter Miscellaneous Notes * Telephone Encounter - Tiana Leslie RN - 04/23/2025 11:05 AM EDT TC to pt to go over new medications, referrals, and lifestyle interventions. RN educated pt to follow up with PCP on 05/07 to see if she would like to do other medications as well. Pt verbalized understanding and agreement with the plan of care. ----- Message from Nurse Elvie Lawrence sent at 04/23/2025 9:39 AM EDT ----- ----- Message ----- From: Sheri Pak MD Sent: 04/23/2025 8:27 AM EDT To: Elvie Loza RN; JANI Mei Please let Kristal know that I ordered Metformin 500mg BID for her, referrals to CDTM and nutrition. She is going to need at least one other medication, either GLP1 or insulin, which will be started by PCP or pharmacist. Work hard on diet, no sweetened beverages, eat proteina nd good fats with most meals. Please book close follow-up with PCP, Irish, you can let us know when you want to see her next. ----- Message ----- From: Elvie Loza RN Sent: 04/20/2025 3:24 PM EDT To: Sheri Pak MD ----- Message from Elvie Loza RN sent at 04/20/2025 3:24 PM EDT ----- Please review note. Pt is interested in medications and suggested referrals. ----- Message ----- From: Sheri Pak MD Sent: 04/20/2025 1:43 PM EDT To: [facility] P[facility] Nurses Please let patient know that her A1C has much increased in the past seven months from 8.4 to 11.0. Is she out of medications, need CDTM, or nutrition referral? Pasha covering for Derick ----- Message ----- From: Interface, Lab Results In Sent: 04/20/2025 1:00 PM EDT To: JANI Mei * Telephone Encounter - Elvie Loza RN - 04/20/2025 3:16 PM EDT T/C to pt. Advised of message from covering provider. Pt states that she has not been rx any medications for diabetes. Pt asking if she has pre-diabetes. RN advised pt that and A1C of 11% is consistent with diabetes. Pt reports that she her diet is terrible. States that she often does not eat at all during the day as nausea is normal for her. Pt states that she does not currently exercise much but is planning to start. Pt encouraged to walk after meals and increase exercise as tolerated. Pt counseled to avoid sweets and sugary beverages. Pt reminded of upcoming scheduled f/u with pcp. Pt states that she is interested in medications, a CDTM referral and a nutrition referral. Advised will update covering provider. Encouraged pt to call with any questions/concerns. * Telephone Encounter - Elvie Loza RN - 04/20/2025 3:01 PM EDT ----- Message from Sheri Pak MD sent at 04/20/2025 1:43 PM EDT ----- Please let patient know that her A1C has much increased in the past seven months from 8.4 to 11.0. Is she out of medications, need CDTM, or nutrition referral? Pasha covering for Derick ----- Message ----- From: Interface, Lab Results In Sent: 04/20/2025 1:00 PM EDT To: JANI Mei * Result Encounter Note - Sheri Pak MD - 04/20/2025 1:43 PM EDT Please let patient know that her A1C has much increased in the past seven months from 8.4 to 11.0. Is she out of medications, need CDTM, or nutrition referral? Pasha covering for Derick documented in this encounter Plan of Treatment Upcoming Encounters Date Type Department Care Team (Late st Contact Info) Description 05/07/2025 9:15 AM EDT Office Visit [facility] P[facility] [address] [place] [address] Irish Sepulveda FNP [address] [place] [address] documented as of this encounter Visit Diagnoses Not on filedocumented in this encounter Additional Health Concerns Assessment Noted Time PHQ-9 Depression Total Score: 14 07/20/ 024 1:30 PM EDT documented as of this encounter Care Teams Buyer Internship Relationship Specialty Start Date End Date Irish Sepulveda FNP [address] [place] [address] PCP - General Family Medicine 11/12/21 documented as of this encounter
[2025-04-26 13:52] VITALS: BP 127/75; PULSE 89; BMI 32.3
--- NOTE | 2025-04-26 13:52 | A.OFFVIS_ITS ---
Vital Signs 04/26/25 13:52 Height 5 ft 2 in Weight 176 lb 5.917 oz BMI 32.3 BP 127/75 Blood Pressure Location Lt brachial Position Sitting Pulse 89 Intake Visit Reasons: 6 wks f/u N/V abd. pain Intake Note: December presents in the office as a 6 week follow up for N/V abd pains. CC: She states she was supposed to have her gall bladder removed but she had blood work done and she states that her Dr told her she is now diabetic. Clinical Lab Technologist Required: No Allergies Heparin Analogues (Heparin Agents) Allergy (Intermediate, Unverified 04/26/25 13:58) HIVES codeine (CODEINE) Allergy (Mild, Unverified 04/26/25 13:58) HIVES heparin Allergy (Unknown, Uncoded 04/26/25 13:58) hives tylenol with codeine Allergy (Unknown, Uncoded 04/26/25 13:58) hives HPI HPI 6 wks f/u N/V abd. pain: Details: Assessment & Plan (1) Acalculous cholecystitis: Code(s): K81.9 - Cholecystitis, unspecified Category: Medical (2) Abnormal biliary HIDA scan: Code(s): R94.8 - Abnormal results of function studies of other organs and systems Category: Medical (3) GERD (gastroesophageal reflux disease): Code(s): K21.9 - Gastro-esophageal reflux disease without esophagitis Category: Medical (4) Nausea and vomiting: Code(s): R11.2 - Nausea with vomiting, unspecified Category: Medical (5) Chronic idiopathic constipation: Code(s): K59.04 - Chronic idiopathic constipation Category: Medical Plan She received the Creon in his taking it. This seems to have helped quite a bit with the pain in the right upper quadrant at least. It has not helped with her sensation of sulfur burps. Her nausea and vomiting persists however and she can not seem to find any food triggers for it. She notes that the Creon seems to make her very thirsty. Cat scan seem to show constipation and she admits she only moves her bowels every 2-3 days. Although she feels this is her norm and she is not uncomfortable this could be contributing to the mild delay in gastric emptying into some of the symptoms so I think we need to start her on constipation regimen. We are going to start with MiraLax at night and titrate to affect her side effect. Confounding factors are: Suboxone, Seroquel. She has daily nausea that is intermittent and will last about 15 minutes a time, 2-3 times a day. The vomiting is r/t the sulfur burps and used to be once q6mos and not it is 2-3 times a month. The sulfur burps precede the vomiting. SCOTTY culver has worked for this in the ER. I want to trial reglan 5mg for the N/V given the mild delay of gastric emptying discovered on the gastric emptying study, managing the CIC may also alleviate this. She has seen Dr. Rucker who ordered CT to r/o any other contributing causes but they are discussing possible cholecystectomy. In the meantime the creon has at least helped with the RUQ pain. ROV 5-6 weeks. Medications: New polyethylene glycol 3350 (Miralax) 17 grams PO .qhs 100 ea 6RF K59.04 - Chronic idiopathic constipation metoclopramide HCl (Reglan) 5 mg PO TID PRN 90 tabs 1RF nausea and vomiting R11.2 - Nausea with vomiting, unspecified TODAY'S VISIT She has been having more diarrhea and sulpher burps recently. She just discovered that she has NIDDM and her a1c is 11%!, She was just started on meformin, this may have a r/t the uneven bowels as this can cause diarrhea or constipation. Because of her very high blood sugars, they have had to postpone any plans to consider taking out her gallbladder for biliary dyskinesia. She continues on the Creon for now, she has only been taking the metoclopramide when she feels nauseated and she has been alternating the MiraLax every other day to control her stooling. I think we need to take the metoclopramide daily 3 times a day scheduled with each meal to get the GI motility in step with a normal schedule. This is especially true because of her uncontrolled diabetes since this likely is causing some degree of gastroparesis. This is probably directly what is causing her nausea and because food is fermenting in the GI system it is probably what is causing foul-smelling flatulence and sulfur burps. She had some concerns re: transaminitis, I explained the relation of uncontrolled BS and MACARIO and ths right now this is the most controllable variable. She will be seeing her primary care provider for ongoing diabetes management. Because of all of her difficulties she is interested in having an upper endoscopy and I think this is reasonable. We will get this scheduled. Her asthma is well controlled and she denies any cardiac problems. She is naive to anesthesia and sedation. No ID problems, hx of HEp C with natural immunity and n o viral load. ROV 8 weeks. [facility] Medical History Hx of drainage of abscess Biliary dyskinesia Chronic abdominal pain Abnormal biliary HIDA scan Asthma Chronic hepatitis C Nausea and vomiting Goiter Obesity (BMI 30-39.9) Opioid use disorder Anxiety Surgical History History of section Family History Paternal Grandfather Lung cancer Prostate cancer Paternal Grandmother Lung cancer Paternal Uncle Prostate cancer Paternal Uncle Lung cancer Social History Alcohol intake: current Alcohol intake frequency: holidays/special occasions only Alcohol type: wine Patient Tobacco Use Status: Current everyday Tobacco user Cigarette Packs Per Day: 1 Substance Use Type: Marijuana Review of Systems Const Denies fatigue, Denies fever(s), Denies night sweats, Denies poor appetite and Denies weight loss ENT Reports Normal hearing present, Denies dental pain, Denies dysphagia, Denies hearing loss, Denies mouth pain, Denies odynophagia, Denies throat swelling, Denies tongue swelling and Reports other (Dentition adequate) Card Reports no additional complaints Resp Reports no additional complaints GI Details: Denies abdominal pain, Reports belching, Denies melena, Reports bloating, Denies hematochezia, Reports constipation, Denies GI cramping, Denies dysphagia, Denies excessive flatus, Denies early satiety, Reports heartburn, Denies diarrhea, Reports nausea, Denies odynophagia, Denies vomiting and Denies hematemesis Skin/Breast Denies pruritus, Denies lesions, Denies rash and Denies jaundice Neuro Reports Normal hearing present and Denies Abnormal speech present Endo Denies fatigue Aller/Immun Denies throat swelling and Denies tongue swelling Physical Exam Vital Signs: Last Vital Signs Pulse 89 04/26/25 13:52 BP 127/75 04/26/25 13:52 BMI result Body Mass Index 32.3 Const General: cooperative, no acute distress, well developed and well groomed Nutritional Appearance: well nourished and obese Orientation/consciousness: oriented to person, oriented to place and oriented to time Limitations: No language barrier HEENT Head: Yes normocephalic and Yes atraumatic Eyes General: appearance normal, both eyes and all related structures Pupils: Equal, round and reactive pupils present Neck Neck: Yes normal visual inspection and Yes no lymphadenopathy Thyroid: Thyroid normal Resp Effort & Inspection: normal respiratory effort and able to speak in complete sentences Auscultation: clear to auscultation bilaterally Cardio Rate: regular rate Rhythm: regular rhythm Heart sounds: Normal, physiologic split S2 sound present Peripheral pulses: radial pulses present and posterior tibial pulses present GI Inspection: No distended, No Abdominal panniculus present and Yes obesity Palpation (GI): Soft to palpation, nontender, no guarding, not rigid and No hepatosplenomegaly present Percussion: Yes normal to percussion Auscultation: normal bowel sounds Rectal Exam - Female: deferred Skin General skin exam: no rashes or lesions noted, turgor normal, skin not dry, no jaundice, No spider nevi and no striae Rashes: no rashes Nails: normal Neuro General: oriented to person, oriented to place and oriented to time Cranial nerves: Yes Equal, round and reactive pupils present and Yes Normal hearing present Speech: No Abnormal speech present Extrem General: Yes normal to inspection, No clubbing, No cyanosis and No edema Psych Appearance: grossly normal and well kempt Mental Status: mental status grossly normal Speech and movement: Normal speech and movement present Affect: normal affect Attitude: cooperative Thought process: Normal thought process present and not confabulating Thought content: Normal thought content present Insight: Fair insight present (Psych) Judgement: Fair judgement present (Psych) Results Reviewed Results Reviewed: Laboratory Tests 09/11/24 12/13/24 04/20/25 11:53 14:31 12:25 WBC 7.1 Hgb 16.7 H Hct 47.0 Plt Count 185 Hemoglobin A1c % 11.0 H Total Bilirubin 0.8 1.1 H Direct Bilirubin 0.3 AST 94 H 55 H ALT 112 H 74 H Alkaline Phosphatase 100 98 Hep Bs Antigen Negative Hep Bs Antibody REACTIVE Hep B Core Total Ab Nonreactive Hep C Viral Load <15 NOT DETECTED Hep C Viral Load Log <1.18 NOT DETECTED HIV 1&2 Ab/P24 Ag 4thGn Nonreactive Assessment & Plan Assessment & Plan (1) GERD (gastroesophageal reflux disease): Code(s): K21.9 - Gastro-esophageal reflux disease without esophagitis Category: Medical (2) Biliary dyskinesia: Code(s): K82.8 - Other specified diseases of gallbladder Category: Medical (3) Nausea and vomiting: Code(s): R11.2 - Nausea with vomiting, unspecified Category: Medical (4) Chronic idiopathic constipation: Code(s): K59.04 - Chronic idiopathic constipation Category: Medical (5) Opioid use disorder: Code(s): F11.90 - Opioid use, unspecified, uncomplicated Category: Medical (6) Chronic abdominal pain: Code(s): R10.9 - Unspecified abdominal pain; G89.29 - Other chronic pain Category: Medical (7) Pre-op examination: Code(s): Z01.818 - Encounter for other preprocedural examination Category: Medical (8) MACARIO (nonalcoholic steatohepatitis): Comment: 09/11/2403/ 11:5314:3112:25 WBC 7.1 Hgb 16.7 H Hct 47.0 Plt Count 185 Hemoglobin A1c % 11.0 H Total Bilirubin 0.8 1.1 H Direct Bilirubin 0.3 AST 94 H 55 H ALT 112 H 74 H Alkaline Phosphatase 100 98 Hep Bs Antigen Negative Hep Bs Antibody REACTIVE Hep B Core Total Ab Nonreactive Hep C Viral Load <15 NOT DETECTED Hep C Viral Load Log <1.18 NOT DETECTED HIV 1&2 Ab/P24 Ag 4thGn Nonreactive Code(s): K75.81 - Nonalcoholic steatohepatitis (MACARIO) Category: Medical Plan She has been having more diarrhea and sulphur burps recently. She just discovered that she has NIDDM and her a1c is 11%!, She was just started on meformin, this may have a r/t the uneven bowels as this can cause diarrhea or constipation. Because of her very high blood sugars, they have had to postpone any plans to consider taking out her gallbladder for biliary dyskinesia. She continues on the Creon for now, she has only been taking the metoclopramide when she feels nauseated and she has been alternating the MiraLax every other day to control her stooling. I think we need to take the metoclopramide daily 3 times a day scheduled with each meal to get the GI motility in step with a normal schedule. This is especially true because of her uncontrolled diabetes since this likely is causing some degree of gastroparesis. This is probably directly what is causing her nausea and because food is fermenting in the GI system it is probably what is causing foul-smelling flatulence and sulfur burps. She will be seeing her primary care provider for ongoing diabetes management. Because of all of her difficulties she is interested in having an upper endoscopy and I think this is reasonable. We will get this scheduled. Her asthma is well controlled and she denies any cardiac problems. She is naive to anesthesia and sedation. No ID problems, hx of HEp C with natural immunity and n o viral load. ROV 8 weeks. Orders: Orders EGD - GI Use Only 04/26/25 R11.2 - Nausea with vomiting, unspecified Medications: New pantoprazole 40 mg PO DAILY 30 tabs 6RF R11.2 - Nausea with vomiting, unspecified Changed From metoclopramide HCl 5 mg PO TID PRN 90 tabs 1RF nausea and vomiting R11.2 - Nausea with vomiting, unspecified To metoclopramide HCl (Reglan) 5 mg PO TID 90 tabs 6RF nausea and vomiting R11.2 - Nausea with vomiting, unspecified Refilled [id number] 36,000-114,000- 180,000 unit (Creon) administer with meals and/or snacks 2 caps PO BID 120 caps 6RF K81.9 - Cholecystitis, unspecified Coding Level of Care Code Est Pt Level 4 (39217) Diagnoses GERD (gastroesophageal reflux disease) K21.9 Biliary dyskinesia K82.8 Nausea and vomiting R11.2 Chronic idiopathic constipation K59.04 Opioid use disorder F11.90 Chronic abdominal pain R10.9; G89.29 Pre-op examination Z01.818 MACARIO (nonalcoholic steatohepatitis) K75.81 Time Spent (min) 38
== END 2025-04-26 14:50 | disposition home or self-care (01) ==
LOC: HO.HGI 13:32
PROVIDERS: PCP Registered Nurse; Visit Provider Nurse Practitioner
DX: K21.9 Gastro-esophageal reflux disease without esophagitis (principal); K82.8 Other specified diseases of gallbladder; R11.2 Nausea with vomiting, unspecified; K59.04 Chronic idiopathic constipation; F11.90 Opioid use, unspecified, uncomplicated; R10.9 Unspecified abdominal pain; G89.29 Other chronic pain; K75.81 Nonalcoholic steatohepatitis (NASH)
CPT/HCPCS: 99214

== ENCOUNTER → 2025-04-26 13:31 | Outpatient (BNVA) | payer MEDICAID, SELFPAY | PROVIDERS: PCP Registered Nurse; Visit Provider Nurse Practitioner | DX: K21.9 Gastro-esophageal reflux disease without esophagitis (principal); K59.04 Chronic idiopathic constipation; R11.2 Nausea with vomiting, unspecified; R94.8 Abnormal results of function studies of other organs and systems | CPT/HCPCS: 99212 ==

== ENCOUNTER 2025-06-20 12:36 | Outpatient (AMB) | payer MEDICAID, SELFPAY ==
--- NOTE | 2025-06-20 12:54 | MHC.OFFVIS ---
Vital Signs 06/20/25 13:00 Height 5 ft 2 in Weight 184 lb 11.958 oz BMI 33.8 BP 85/56 L Blood Pressure Location Lt brachial Position Sitting Pulse 75 Intake Visit Reasons: 8 week f/u IBS, N/V, biliary dysk Intake Note: December presents to in office follow up of IBS. CC: Patient states that she just found out that she has diabetes type 2 about a month and a half ago. Patient states that N/V is not that much now after she started taking the nausea med. She states that she takes Miralax but not every day because if she does she is in the BR all morning long. She states that her blood sugars have been very high in the 250s. Rn Pain Management Required: No Allergies Heparin Analogues (Heparin Agents) Allergy (Intermediate, Unverified 04/26/25 13:58) HIVES codeine (CODEINE) Allergy (Mild, Unverified 04/26/25 13:58) HIVES heparin Allergy (Unknown, Uncoded 04/26/25 13:58) hives tylenol with codeine Allergy (Unknown, Uncoded 04/26/25 13:58) hives HPI HPI 8 week f/u IBS, N/V, biliary dysk: Details: Assessment & Plan (1) GERD (gastroesophageal reflux disease): Code(s): K21.9 - Gastro-esophageal reflux disease without esophagitis Category: Medical (2) Biliary dyskinesia: Code(s): K82.8 - Other specified diseases of gallbladder Category: Medical (3) Nausea and vomiting: Code(s): R11.2 - Nausea with vomiting, unspecified Category: Medical (4) Chronic idiopathic constipation: Code(s): K59.04 - Chronic idiopathic constipation Category: Medical (5) Opioid use disorder: Code(s): F11.90 - Opioid use, unspecified, uncomplicated Category: Medical (6) Chronic abdominal pain: Code(s): R10.9 - Unspecified abdominal pain; G89.29 - Other chronic pain Category: Medical (7) Pre-op examination: Code(s): Z01.818 - Encounter for other preprocedural examination Category: Medical (8) MACARIO (nonalcoholic steatohepatitis): Comment: 09/11/2403/ 11:5314:3112:25 WBC 7.1 Hgb 16.7 H Hct 47.0 Plt Count 185 Hemoglobin A1c % 11.0 H Total Bilirubin 0.8 1.1 H Direct Bilirubin 0.3 AST 94 H 55 H ALT 112 H 74 H Alkaline Phosphatase 100 98 Hep Bs Antigen Negative Hep Bs Antibody REACTIVE Hep B Core Total Ab Nonreactive Hep C Viral Load <15 NOT DETECTED Hep C Viral Load Log <1.18 NOT DETECTED HIV 1&2 Ab/P24 Ag 4thGn Nonreactive Code(s): K75.81 - Nonalcoholic steatohepatitis (MACARIO) Category: Medical Plan She has been having more diarrhea and sulphur burps recently. She just discovered that she has NIDDM and her a1c is 11%!, She was just started on meformin, this may have a r/t the uneven bowels as this can cause diarrhea or constipation. Because of her very high blood sugars, they have had to postpone any plans to consider taking out her gallbladder for biliary dyskinesia. She continues on the Creon for now, she has only been taking the metoclopramide when she feels nauseated and she has been alternating the MiraLax every other day to control her stooling. I think we need to take the metoclopramide daily 3 times a day scheduled with each meal to get the GI motility in step with a normal schedule. This is especially true because of her uncontrolled diabetes since this likely is causing some degree of gastroparesis. This is probably directly what is causing her nausea and because food is fermenting in the GI system it is probably what is causing foul-smelling flatulence and sulfur burps. She will be seeing her primary care provider for ongoing diabetes management. Because of all of her difficulties she is interested in having an upper endoscopy and I think this is reasonable. We will get this scheduled. Her asthma is well controlled and she denies any cardiac problems. She is naive to anesthesia and sedation. No ID problems, hx of HEp C with natural immunity and n o viral load. ROV 8 weeks. Orders: Orders EGD - GI Use Only 04/26/25 R11.2 - Nausea with vomiting, unspecified Medications: New pantoprazole 40 mg PO DAILY 30 tabs 6RF R11.2 - Nausea with vomiting, unspecified Changed From metoclopramide HCl 5 mg PO TID PRN 90 tabs 1RF nausea and vomiting R11.2 - Nausea with vomiting, unspecified To metoclopramide HCl (Reglan) 5 mg PO TID 90 tabs 6RF nausea and vomiting R11.2 - Nausea with vomiting, unspecified Refilled [id number] 36,000-114,000- 180,000 unit (Creon) administer with meals and/or snacks 2 caps PO BID 120 caps 6RF K81.9 - Cholecystitis, unspecified EGD BIOPSY TODAYS VISIT [facility] Medical History Hx of drainage of abscess Biliary dyskinesia Chronic abdominal pain Abnormal biliary HIDA scan Asthma Chronic hepatitis C Nausea and vomiting Goiter Obesity (BMI 30-39.9) Opioid use disorder Anxiety Surgical History History of section Family History Paternal Grandfather Lung cancer Prostate cancer Paternal Grandmother Lung cancer Paternal Uncle Prostate cancer Paternal Uncle Lung cancer Social History Alcohol intake: current Alcohol intake frequency: holidays/special occasions only Alcohol type: wine Patient Tobacco Use Status: Current everyday Tobacco user Cigarette Packs Per Day: 1 Substance Use Type: Marijuana Review of Systems Const Denies fatigue, Denies fever(s), Denies night sweats, Reports poor appetite and Denies weight loss ENT Reports Normal hearing present, Denies dental pain, Denies dysphagia, Denies hearing loss, Denies mouth pain, Denies odynophagia, Denies throat swelling, Denies tongue swelling and Reports other (Dentition adequate) Card Reports no additional complaints Resp Reports no additional complaints GI Details: Denies abdominal pain, Reports belching, Denies melena, Denies bloating, Denies hematochezia, Reports constipation, Denies GI cramping, Denies dysphagia, Denies excessive flatus, Denies early satiety, Reports heartburn, Denies diarrhea, Reports loose stools, Reports nausea, Denies odynophagia, Denies vomiting and Denies hematemesis Skin/Breast Denies pruritus, Denies lesions, Denies rash and Denies jaundice Neuro Reports Normal hearing present and Denies Abnormal speech present Endo Denies fatigue Aller/Immun Denies throat swelling and Denies tongue swelling Physical Exam Vital Signs: Last Vital Signs Pulse 75 06/20/25 13:00 BP 85/56 L 06/20/25 13:00 BMI result Body Mass Index 33.8 Const General: cooperative, no acute distress, well developed and well groomed Nutritional Appearance: well nourished and obese Orientation/consciousness: oriented to person, oriented to place and oriented to time Limitations: No language barrier HEENT Head: Yes normocephalic and Yes atraumatic Eyes General: appearance normal, both eyes and all related structures Pupils: Equal, round and reactive pupils present Neck Neck: Yes normal visual inspection and Yes no lymphadenopathy Thyroid: Thyroid normal Resp Effort & Inspection: normal respiratory effort and able to speak in complete sentences Auscultation: clear to auscultation bilaterally Cardio Rate: regular rate Rhythm: regular rhythm Heart sounds: Normal, physiologic split S2 sound present Peripheral pulses: radial pulses present and posterior tibial pulses present GI Inspection: No distended, Yes Abdominal panniculus present and Yes obesity Palpation (GI): Soft to palpation, nontender, no guarding, not rigid and No hepatosplenomegaly present Percussion: Yes normal to percussion Auscultation: normal bowel sounds Rectal Exam - Female: deferred Skin General skin exam: no rashes or lesions noted, turgor normal, skin not dry, no jaundice, No spider nevi and no striae Rashes: no rashes Nails: normal Neuro General: oriented to person, oriented to place and oriented to time Cranial nerves: Yes Equal, round and reactive pupils present and Yes Normal hearing present Speech: No Abnormal speech present Extrem General: Yes normal to inspection, No clubbing, No cyanosis and No edema Psych Appearance: grossly normal and well kempt Mental Status: mental status grossly normal Speech and movement: Normal speech and movement present Affect: normal affect Attitude: cooperative Thought process: not confabulating and Impoverished thought process present Thought content: Normal thought content present Insight: Limited insight present (Psych) Judgement: Limited judgement present (Psych) Assessment & Plan Assessment & Plan (1) GERD (gastroesophageal reflux disease): Code(s): K21.9 - Gastro-esophageal reflux disease without esophagitis Category: Medical (2) Nausea and vomiting: Code(s): R11.2 - Nausea with vomiting, unspecified Category: Medical (3) Acalculous cholecystitis: Code(s): K81.9 - Cholecystitis, unspecified Category: Medical Plan Her current GI regimen consists of pantoprazole 40 mg once a day, Creon, metoclopramide 5 mg 3 times a day. - The patient is a 40-year-old female presenting for follow-up for nausea vomiting and severe GERD likely associated with biliary dyskinesia. Elective cholecystectomy has not been an option in the past because her hemoglobin A1c was 11% and these uncontrolled blood sugars contraindicated surgery. - She reports an increase in the frequency and duration of sulfur burps, occurring for three consecutive days last week. - Bowel habits are irregular; the patient alternates between regular movements, diarrhea, and occasional delays of up to two days without bowel movements. - The patient has diabetes, managed with Metformin, Lantus, and was recently switched from Trulicity to Jardiance. Blood sugars are coming into better control and she has been told that her sugars likely will arrange between 7 and 8% A1c in the next few months. - Nausea is mostly controlled with metoclopramide 5 mg 3 times a day, with rare mild occurrences. However this has not yet affected her severe reflux. She has not had any adverse effects. - Patient reports frequent indigestion mitigated by pantoprazole but experiences breakthrough symptoms occasionally. - On Creon for pancreatic enzymatic support due to biliary dyskinesia. At this time we are going to increase the Reglan to 10 mg 3 times a day to see if gastric rumination is a part of the problem. I am also going to add Pepcid for her breakthrough symptoms in the short term. Again a lot of this may be due to biliary dyskinesia and the Creon is a short term stopgap until we get her sugars controlled and we can again reconsider elective cholecystectomy. She is not sure of all of her medications so she is going to bring a list with her at the next visit so that I can see if there any other confounding factors that we need to work around that would explain her symptoms. Return office visit in 6 weeks EGD BIOPSY Medications: New metoclopramide HCl (Reglan) 10 mg PO TID 90 tabs 6RF K21.9 - Gastro-esophageal reflux disease without esophagitis, K81.9 - Cholecystitis, unspecified, R11.2 - Nausea with vomiting, unspecified famotidine (Pepcid) 40 mg PO DAILY PRN 30 tabs 3RF heartburn K21.9 - Gastro-esophageal reflux disease without esophagitis Refilled pantoprazole 40 mg PO DAILY 30 tabs 6RF R11.2 - Nausea with vomiting, unspecified qgmmmp-kqqrwirc-zhchkyr 36,000-114,000- 180,000 unit (Creon) administer with meals and/or snacks 2 caps PO BID 120 caps 6RF K81.9 - Cholecystitis, unspecified Discontinued metoclopramide HCl (Reglan) Discontinued Reason: Doctor's Order 5 mg PO TID 90 tabs 6RF nausea and vomiting R11.2 - Nausea with vomiting, unspecified Coding Level of Care Code Est Pt Level 3 (34153) Diagnoses GERD (gastroesophageal reflux disease) K21.9 Nausea and vomiting R11.2 Acalculous cholecystitis K81.9
[2025-06-20 13:00] VITALS: BP 85/56; PULSE 75; BMI 33.8
--- OUTSIDE RECORDS SUMMARY | 2025-06-20 13:56 | XMS_ITS | Encounter Summary ---
Author Organization [employer] Address [address] [place] [address] 7 [place] [address] Care Team Providers Care Poultry Tender Name Role Phone AlejandraIrish grimes JANI Primary Care Provider [phone] Lisa Carney PharmD Unavailable [phone] Reason for Visit * Reason Onset Date Comments appt extraction 11/09/2023 Encounter Details Date Type Department Care Team ([facility] st Contact Info) Description 11/09/2023 Telephone [facility] [address] [place] [address] Chad Monsivais, DMD [address] [place] [address] appt extraction Social History Tobacco Use Types [...] your housing situation today? I have gabriel angelo 07/31/[address] you li [...] Upcoming Encounters Date Type Department Care Team ([facility] st Contact Info) Description 07/02/2025 11:15 AM EDT Office Visit [facility] [address] [place] [address] Irish Sepulveda, JANI [address] [place] [address] 07/05/2025 10:00 AM EDT Nutrition [facility] [address] [place] [address] Melony Herrera, RD [address] [place] [address] 07/16/2025 11:00 AM EDT Medication Management [facility] [address] [place] [address] Lisa Carney, Stephanie [address] [place] [address] documented as of this encounter Visit Diagnoses Not on filedocumented in this encounter Additional Health Concerns Assessment Noted Time PHQ-9 Depression Total Score: 10 023 11:21 AM EST documented as of this encounter Care Teams Poultry Tender Relationship Specialty Start Date End Date Irish Sepulveda FNP [address] [place] [address] PCP - General Family Medicine 11/12/21 Lisa Carney, JanetD [address] [place] [address] Pharmacist Pharmacy 05/28/25 documented as of this encounter
--- OUTSIDE RECORDS SUMMARY | 2025-06-20 13:56 | XMS_ITS | Encounter Summary ---
Author Organization [employer] Address [address] [place] [address] 7 [place] [address] Care Team Providers Care Cargo Operations Agent Name Role Phone Irish Sepulveda Primary Care Provider [phone] Lisa Carney PharmD Unavailable [phone] Encounter Details Date Type Department Care Team (Late st Contact Info) Description 12/22/2023 Orders Only [facility]ED[facility] [address] [place], [place] [phone] Irish Sepulveda FNP [address] [place] [address] Gastroesophageal reflux disease, unspecified whether esophagitis present [...] Care Team (Late st Contact Info) Description 07/02/2025 11:15 AM EDT Office Visit [facility] [address] [place] [address] Irish Sepulveda, JANI [address] [place] [address] 07/05/2025 10:00 AM EDT Nutrition [facility] [address] [place] [address] Melony Herrera, RD [address] [place] [address] 07/16/2025 11:00 AM EDT Medication Management [facility] [address] [place] [address] Lisa Carney, PharmD [address] [place] [address] documented as of this encounter Visit Diagnoses Diagnosis Gastroesophageal reflux disease, unspecified whether esophagitis present documented in this encounter Additional Health Concerns Assessment Noted Time PHQ-9 Depression Total Score: 023 11:21 AM EST documented as of this encounter Care Teams Cargo Operations Agent Relationship Specialty Start Date End Date Irish Sepulveda FNP [address] [place] [address] PCP - General Family Medicine 11/12/21 Lisa Carney, JanetD [address] [place] [address] Pharmacist Pharmacy 05/28/25 documented as of this encounter
--- OUTSIDE RECORDS SUMMARY | 2025-06-20 13:56 | XMS_ITS | Encounter Summary ---
Author Organization [employer] Address [address] [place] [address] [address], [place] [address] Care Team Providers Care School Fundraising Director Name Role Phone Irish Sepulveda Primary Care Provider [phone] Lisa Carney PharmD Unavailable [phone] Encounter Details Date Type Department Care Team (Late st Contact Info) Description 03/11/2023 Orders Only [facility] MED[facility] [address] [place] [address] Marimar Bae LPN Social History Tobacco Use [...] Description 07/02/2025 11:15 AM EDT Office Visit [facility] [address] [place] [address] Irish Sepulveda FNP [address] [place] [address] 07/05/2025 10:00 AM EDT Nutrition [facility] [address] [place] [address] [place] [address] 07/16/2025 11:00 AM EDT Medication Management [facility] [address] [place] [address] Lisa Carney PharmD [address] [place] [address] documented as of this encounter Visit Diagnoses Not on filedocumented in this encounter Care Teams School Fundraising Director Relationship Specialty Start Date End Date Irish Sepulveda FNP [address] [place] [address] PCP - General Family Medicine 11/12/21 Lisa Carney, Stephanie [address] [place] [address] Pharmacist Pharmacy 05/28/25 documented as of this encounter
--- OUTSIDE RECORDS SUMMARY | 2025-06-20 13:56 | XMS_ITS | Encounter Summary ---
Author Organization [employer] Address [address] [place] [address] 7 [place] [address] Care Team Providers Care Quarter Backer Name Role Phone Irish Sepulveda Primary Care Provider [phone] Lisa Carney PharmD Unavailable [phone] Reason for Visit * Reason Onset Date Comments Med Refill 01/31/2025 Encounter Details Date Type Department Care Team ([facility] st Contact Info) Description 01/31/2025 Telephone [facility] MED[facility] [address] [place] [address] Irish Sepulveda FNP [address] [place], [place] [phone] Med Refill Social History Tobacco Use Types [...] Telephone Encounter - Julisa Campbell LPN - 01/31/2025 1:24 PM EDT Per previous script covering for psych for 30 days no refills please * Telephone Encounter - Sharri Montalvo - 01/31/2025 1:17 PM EDT TC from pt requesting medication refill. Medications needing refill : QUEtiapine (SEROquel) 100 MG tablet gabapentin (Neurontin) 300 MG capsule To be sent to: [facility] - [place], [place] - [address] documented in this encounter Plan of Treatment Upcoming Encounters Date Type Department Care Team (Late st Contact Info) Description 07/02/2025 11:15 AM EDT Office Visit [facility] [address] [place] [address] Irish Sepulveda FNP [address] [place], [place] [phone] 07/05/2025 10:00 AM EDT Nutrition [facility] [address] [place] [address] [place] [address] 07/16/2025 11:00 AM EDT Medication Management [facility] [address] [place] [address] Lisa Carney, PharmD [address] [place] [address] documented as of this encounter Visit Diagnoses Not on filedocumented in this encounter Additional Health Concerns Assessment Noted Time PHQ-9 Depression Total Score: 14 024 1:30 PM EDT documented as of this encounter Care Teams Quarter Backer Relationship Specialty Start Date End Date Irish Sepulveda FNP [address] [place] [address] PCP - General Family Medicine 11/12/21 Lisa Carney, PharmD [address] [place] [address] Pharmacist Pharmacy 05/28/25 documented as of this encounter
--- OUTSIDE RECORDS SUMMARY | 2025-06-20 13:56 | XMS_ITS | Encounter Summary ---
Author Organization [employer] Address [address] [place] [address] [address] [address] Care Team Providers Care Superintendent Cemetery Name Role Phone Irish Sepulveda Primary Care Provider [phone] Lisa Carney PharmD Unavailable [phone] Encounter Details Date Type Department Care Team (Late st Contact Info) Description 01/27/2023 Orders Only [facility] [address] [place] [address] Marimar Bae LPN Social History Tobacco Use [...] Description 07/02/2025 11:15 AM EDT Office Visit [facility] [address] [place] [address] Irish Sepulveda FNP [address] [place] [address] 07/05/2025 10:00 AM EDT Nutrition [facility] [address] [place] [address] [place] [address] 07/16/2025 11:00 AM EDT Medication Management [facility] [address] [place] [address] Lisa Carney PharmD [address] [place] [address] documented as of this encounter Visit Diagnoses Not on filedocumented in this encounter Care Teams Superintendent Cemetery Relationship Specialty Start Date End Date Irish Sepulveda FNP [address] [place] [address] PCP - General Family Medicine 11/12/21 Lisa Carney, Stephanie [address] [place] [address] Pharmacist Pharmacy 05/28/25 documented as of this encounter
--- OUTSIDE RECORDS SUMMARY | 2025-06-20 13:56 | XMS_ITS | Encounter Summary ---
Author Organization [employer] Address [address] [place] [address] [address] [place] [address] Care Team Providers Care Sheet Metal Mechanic Name Role Phone Irish Sepulveda Primary Care Provider [phone] Lisa Carney PharmD Unavailable [phone] Reason for Visit * Reason Onset Date Comments Med Refill 10/13/2024 Encounter Details Date Type Department Care Team ([facility] st Contact Info) Description 10/13/2024 Telephone [facility] [address] [place], [place] [phone] Irish Sepulveda FNP [address] [place], [place] [phone] Med Refill Social History Tobacco Use Types [...] got money to buy more: Sometimes True 11/10/ 2023 Within the past 12 months,th e food [...] the past 12 months, has t he [employer], gas, oil or water company threatened to [...] 40 MG tablet To be sent to: [facility] - [place], [place] - [address] documented in this encounter Plan of Treatment Upcoming Encounters Date Type Department Care Team (Late st Contact Info) Description 07/02/2025 11:15 AM EDT Office Visit [facility] [address] [place] [address] Irish Sepulveda FNP [address] [place] [address] 07/05/2025 10:00 AM EDT Nutrition [facility] [address] [place] [address] [place] [address] 07/16/2025 11:00 AM EDT Medication Management [facility] [address] [place] [address] Lisa Carney, PharmKaykay [address] [place] [address] documented as of this encounter Visit Diagnoses Not on filedocumented in this encounter Additional Health Concerns Assessment Noted Time PHQ-9 Depression Total Score: 14 024 1:30 PM EDT documented as of this encounter Care Teams Sheet Metal Mechanic Relationship Specialty Start Date End Date Irish Sepulveda FNP [address] [place] [address] PCP - General Family Medicine 11/12/21 Lisa Carney, PharmD [address] [place] [address] Pharmacist Pharmacy 05/28/25 documented as of this encounter
--- OUTSIDE RECORDS SUMMARY | 2025-06-20 13:56 | XMS_ITS | Encounter Summary ---
Author Organization [employer] Address [address] [place] [address] 7 [place] [address] Care Team Providers Care Radiologist Name Role Phone AlejandraIrish grimes JANI Primary Care Provider [phone] Lisa Carney PharmD Unavailable [phone] Reason for Visit * Reason Onset Date Comments Nutrition referral 06/18/2025 Encounter Details Date Type Department Care Team (Late st Contact Info) Description 06/18/2025 Telephone [facility] MEDICINE [address] [place], [place] [phone] Melony Herrera, RD [address] [place], [place] [phone] Nutrition referral Social History Tobacco Use Types Packs/Day Years Used Date Smoking Tobacco: Every Day Cigarettes Passive Smoke Exposure: Current Smokeless Tobacco: Former Alcohol Use Standard Drinks/Week Comments Not Asked 0 (1 standard drink = 0.6 oz pur e alcohol) Depression Answer Date Recorded Patient Health Questionnaire-9 Score 21 05/07/2025 Patient Health Questionnaire-9 Score 21 05/07/2025 Last PHQ-9: Questionnaire Data Not on file 0 05/07/2025 Housing Stability Answer Date Recorded What is your housing situation today? I have gabriel stephens 05/07/[address] you li ve. Do you have problems with any of the following? None of the above 05/07/2025 Food Insecurity Answer Date Recorded Within the past 12 months, y ou worried that your food would run out before you got money to buy more: Never True 05/07/2025 Within the past 12 months,th e food you bought just didn't last and you didn't have enough money to get more: Never True Transportation Answer Date Recorded In the past 12 months, has l ack of transportation kept you from medical appts, meetings, work or from getting things needed for daily living? No 05/07/2025 Utilities Answer Date Recorded In the past 12 months, has t he electric, gas, oil or water company threatened to shut off services in your home? No 05/07/2025 Depression Answer Date Recorded Patient Health Questionnaire-2 Score 6 05/07/2025 Internet Access Answer Date Recorded Internet Access Q1 Yes 05/07/2025 Internet Access Q2 Not on file 05/07/2025 Comments No Sex and Gender Information Value Date Recorded Sex Assigned at Female 07/20/2022 10:31 AM EDT Legal Sex Female 10:31 AM EDT Gender Identity Female 07/20/2022 10:31 AM EDT Sexual Orientation Straight 07/20/2022 10 :31 AM EDT documented as of this encounter Miscellaneous Notes * Telephone Encounter - Zeb Mccracken [place] - 06/18/2025 4:10 PM EDT Telephone call to patient to schedule a nutrition appointment. No answer, unable to leave voicemail(not set up). Visit type: nutrition consult documented in this encounter Plan of Treatment Upcoming Encounters Date Type Department Care Team ([facility] Contact Info) Description 07/02/2025 11:15 AM EDT Office Visit [facility] MED & PEDS [address] [place] [address] Irish Sepulveda, JANI 505 [place] [address] 07/05/2025 10:00 AM EDT Nutrition [facility] DIABETES/NTRN [address] [place] [address] Melony Herrera, RD [address] [place] [address] 07/16/2025 11:00 AM EDT Medication Management [facility] MED [facility] PED[facility] [address] [place] [address] Lisa Carney, Stephanie [address] [place] [address] documented as of this encounter Visit Diagnoses Not on filedocumented in this encounter Additional Health Concerns Assessment Noted Time PHQ-9 Depression Total Score: 21 05/07/ 025 9:59 AM EDT documented as of this encounter Care Teams Radiologist Relationship Specialty Start Date End Date Irish Sepulveda FNP [address] [place] [address] PCP - General Family Medicine 11/12/21 Lisa Carney, JanetD [address] [place] [address] Pharmacist Pharmacy 05/28/25 documented as of this encounter
--- OUTSIDE RECORDS SUMMARY | 2025-06-20 13:56 | XMS_ITS | Encounter Summary ---
Author Organization [employer] Address [address] [place] [address] 7 [place] [address] Care Team Providers Care Senior Principal Process Engineer Name Role Phone Irish Sepulveda Primary Care Provider [phone] Lisa Carney PharmD Unavailable [phone] Reason for Visit * Reason Onset Date Comments Referral 02/16/2024 Encounter Details Date Type Department Care Team ([facility] st Contact Info) Description 02/16/[address] [facility] MEDICINE [address] [place] [address] Irish Sepulveda FNP [address] [place], [place] [phone] Referral Social History Tobacco Use Types Packs/Day [...] AM EDT Tc from pt requesting a Clerk Cashier referral to have gallbladder removed. Pt had an ED visit2 years ago where she was diagnosed with gallstones, from there pt was referred to gastro to have agallbladder removal but pt hesitated to follow through. Due to some recent concerns pt is now re considering gallbladder removal. If any question please contact pt at [phone]. documented in this encounter Plan of Treatment Upcoming Encounters Date Type Department Care Team ([facility] st Contact Info) Description 07/02/2025 11:15 AM EDT Office Visit [facility] MED & PEDS [address], [place] [phone] Irish Sepulveda FNP 505 [place], [place] [phone] 07/05/2025 10:00 AM EDT Nutrition [facility] DIABETES/NTRN [address] [place] [address] Melony Herrera, OKRINA [address] [place] [address] 07/16/2025 11:00 AM EDT Medication Management [facility] MED & PEDS [address], [place] [phone] Lisa Carney, PharmD 230 [place] [address] documented as of this encounter Visit Diagnoses Not on filedocumented in this encounter Additional Health Concerns Assessment Noted Time PHQ-9 Depression Total Score: 10 023 11:21 AM EST documented as of this encounter Care Teams Senior Principal Process Engineer Relationship Specialty Start Date End Date Irish Sepulveda FNP [address] [place] [address] PCP - General Family Medicine 11/12/21 Lisa Carney, PharmD [address] [place] [address] Pharmacist Pharmacy 05/28/25 documented as of this encounter
--- OUTSIDE RECORDS SUMMARY | 2025-06-20 13:56 | XMS_ITS | Encounter Summary ---
Author Organization [employer] Address [address] [facility] 7t [place] [address] Care Team Providers Care Commercial Fishing Vessel Operator Name Role Phone Irish Sepulveda JANI Primary Care Provider [phone] Lisa Carney PharmD Unavailable [phone] Encounter Details Date Type Department Care Team (Latest Contact Info) Description 06/19/2025 Travel Social History Tobacco Use Types Packs/Day Years [...] housing situation today? I have gabrielrand stephens 05/07/[address] you [...] 07/02/2025 11:15 AM EDT Office Visit [facility] MED & PEDS 505 [place] [address] Irish Sepulveda FNP 505 [place] [address] 07/05/2025 10:00 AM EDT Nutrition [facility] DIABETES/NTRN [address] [place] [address] Melony Herrera, KORINA [address] [place] [address] 07/16/2025 11:00 AM EDT Medication Management [facility] MED & PEDS [address] [place] [address] Lisa Carney PharmD [address] [place] [address] documented as of this encounter Visit Diagnoses Not on filedocumented in this encounter Additional Health Concerns Assessment Noted Time PHQ-9 Depression Total Score: 21 025 9:59 AM EDT documented as of this encounter Care Teams Commercial Fishing Vessel Operator Relationship Specialty Start Date End Date Irish Sepulveda FNP [address] [place] [address] PCP - General Family Medicine 11/12/21 Lisa Carney, PharmD [address] [place] [address] Pharmacist Pharmacy 05/28/25 documented as of this encounter
--- OUTSIDE RECORDS SUMMARY | 2025-06-20 13:56 | XMS_ITS | Encounter Summary ---
Author Organization [employer] Address [address] [place] [address] 7 [place] [address] Care Team Providers Care Solutions Executive Security Name Role Phone Irish Sepulveda Primary Care Provider [phone] Lisa Carney PharmD Unavailable [phone] Reason for Visit * Reason Onset Date Comments Appointment Request 05/05/2024 Encounter Details Date Type Department Care Team ([facility] st Contact Info) Description 05/05/2024 Telephone [facility] MEDICINE [address] [place] [address] Irish Sepulveda FNP [address] [place], [place] [phone] Appointment Request Social History Tobacco Use Types [...] pt, left message for pt to call [facility] office. * Telephone Encounter - Teddy Roque - 05/05/2024 9:50 AM EDT Tc from pt requesting to reschedule todays sick onsite visit. Please contact pt at [phone]. documented in this encounter Plan of Treatment Upcoming Encounters Date Type Department Care Team (Late st Contact Info) Description 07/02/2025 11:15 AM EDT Office Visit [facility] MED & PEDS [address] [place] [address] Irish Sepulveda FNP 505 [place] [address] 07/05/2025 10:00 AM EDT Nutrition [facility] DIABETES/NTRN [address] [place] [address] Melony Herrera, KORINA [address] [place] [address] 07/16/2025 11:00 AM EDT Medication Management [facility] MED & PEDS [address] [place] [address] Lisa Carney, Stephanie [address] [place] [address] documented as of this encounter Visit Diagnoses Not on filedocumented in this encounter Additional Health Concerns Assessment Noted Time PHQ-9 Depression Total Score: 10 023 11:21 AM EST documented as of this encounter Care Teams Solutions Executive Security Relationship Specialty Start Date End Date Irish Sepulveda FNP [address] [place] [address] PCP - General Family Medicine 11/12/21 Lisa Carney, PharmD [address] [place] [address] Pharmacist Pharmacy 05/28/25 documented as of this encounter
--- OUTSIDE RECORDS SUMMARY | 2025-06-20 13:56 | XMS_ITS | Encounter Summary ---
Author Organization [employer] Address [address] [place] [address] Care Team Providers Care Cemetery Vault Installer Name Role Phone Irish Sepulveda Primary Care Provider [phone] Lisa Carney PharmD Unavailable [phone] Reason for Visit * Reason Comments Med Refill Encounter Details Date Type Department Care Team ([facility] Contact Info) Description 11/30/2022 Refill [facility] MEDICINE [address] [place], [place] [phone] Irish Sepulveda FNP [address] [place], [place] [phone] Gastroesophageal reflux disease, unspecified whether esophagitis present [...] Encounters Date Type Department Care Team (Late Contact Info) Description 07/02/2025 11:15 AM EDT Office Visit [facility] MED & PEDS [address] [place], [place] [phone] Irish Sepulveda FNP [address] [place] [address] 07/05/2025 10:00 AM EDT Nutrition [facility] DIABETES/NTRN [address] [place] [address] Melony Herrera, KORINA [address] [place] [address] 07/16/2025 11:00 AM EDT Medication Management [facility] MED & PEDS [address] [place] [address] Lisa Carney, Stephanie [address] [place] [address] documented as of this encounter Visit Diagnoses Diagnosis Gastroesophageal reflux disease, unspecified whether esophagitis present documented in this encounter Care Teams Cemetery Vault Installer Relationship Specialty Start Date End Date Irish Sepulveda FNP [address] [place] [address] PCP - General Family Medicine 11/12/21 Lisa Carney, Stephanie [address] [place], [place] [phone] Pharmacist Pharmacy 05/28/25 documented as of this encounter
--- OUTSIDE RECORDS SUMMARY | 2025-06-20 13:56 | XMS_ITS | Encounter Summary ---
Author Organization [employer] Address [address] [place] [address] 7 [place] [address] Care Team Providers Care Rod Drawer Name Role Phone Irish Sepulveda Primary Care Provider [phone] Lisa Carney PharmD Unavailable [phone] Reason for Visit * Reason Onset Date Comments US Order 06/20/2024 Encounter Details Date Type Department Care Team ([facility] st Contact Info) Description 06/20/2024 Telephone [facility] MEDICINE [address] [place] [address] Irish Sepulveda FNP [address] [place] [address] US Order Social History Tobacco Use Types [...] Pacheco - 06/20/2024 10:08 AM EDT Tc from Julisa at [facility] calling in regards to the order of the US of the abdomen statesit was received without the PCP signature documented in this encounter Plan of Treatment Upcoming Encounters Date Type Department Care Team ([facility] st Contact Info) Description 07/02/2025 11:15 AM EDT Office Visit [facility] MED & PEDS [address] [place] [address] Irish Sepulveda FNP [address] [place] [address] 07/05/2025 10:00 AM EDT Nutrition [facility] DIABETES/NTRN [address] [place] [address] Melony Herrera, RD [address] [place] [address] 07/16/2025 11:00 AM EDT Medication Management [facility] MED & PEDS [address] [place] [address] Lisa Carney, PharmD [address] [place] [address] documented as of this encounter Visit Diagnoses Not on filedocumented in this encounter Additional Health Concerns Assessment Noted Time PHQ-9 Depression Total Score: 10 023 11:21 AM EST documented as of this encounter Care Teams Rod Drawer Relationship Specialty Start Date End Date Irish Sepulveda FNP [address] [place] [address] PCP - General Family Medicine 11/12/21 Lisa Carney, PharmD [address] [place] [address] Pharmacist Pharmacy 05/28/25 documented as of this encounter
--- OUTSIDE RECORDS SUMMARY | 2025-06-20 13:56 | XMS_ITS | Encounter Summary ---
Author Organization [employer] Address [address] [place] [address] 7 [place] [address] Care Team Providers Care Cigarette Seller Name Role Phone Irish Sepulveda Primary Care Provider [phone] Lisa Carney PharmD Unavailable [phone] Reason for Visit * Reason Onset Date Comments Appointment Request 06/19/2025 Encounter Details Date Type Department Care Team ([facility] Contact Info) Description 06/19/2025 Telephone [facility] MED & PEDS [address] [place], [place] [phone] Irish Sepulveda FNP [address] [place], [place] [phone] Appointment Request Social History Tobacco Use Types [...] encounter Miscellaneous Notes * Telephone Encounter - Melody oYusif - 06/19/2025 2:37 PM EDT Tc from pt requesting a call back to discuss scheduling apt to teach her how to use glucose meter Contact pt at [phone] documented in this encounter Plan of Treatment Upcoming Encounters Date Type Department Care Team ([facility] st Contact Info) Description 07/02/2025 11:15 AM EDT Office Visit [facility] MED & PEDS [address] [place] [address] Iirsh Sepulveda FNP [address] [place] [address] 07/05/2025 10:00 AM EDT Nutrition [facility] DIABETES/NTRN [address] [place] [address] Melony Herrera, RD 230 [place] [address] 07/16/2025 11:00 AM EDT Medication Management [facility] MED & PEDS [address] [place] [address] Lisa Carney, Stephanie [address] [place] [address] documented as of this encounter Visit Diagnoses Not on filedocumented in this encounter Additional Health Concerns Assessment Noted Time PHQ-9 Depression Total Score: 21 025 9:59 AM EDT documented as of this encounter Care Teams Cigarette Seller Relationship Specialty Start Date End Date Irish Sepulveda FNP [address] [place] [address] PCP - General Family Medicine 11/12/21 Lisa Carney, Stephanie [address] [place] [address] Pharmacist Pharmacy 05/28/25 documented as of this encounter
--- OUTSIDE RECORDS SUMMARY | 2025-06-20 13:56 | XMS_ITS | Encounter Summary ---
Author Organization [employer] Address [address] [place] [address] 7 [place] [address] Care Team Providers Care Cook Cold Meat Name Role Phone Irish eSpulveda Primary Care Provider [phone] Lisa Carney PharmD Unavailable [phone] Reason for Visit * Reason Comments Med Refill Encounter Details Date Type Department Care Team ([facility] st Contact Info) Description 06/14/2025 Refill [facility] MEDICINE [address] [place] [address] Irish Sepulveda FNP [address] [place] [address] Social History Tobacco Use Types Packs/Day Years [...] [facility] MED & PEDS [address] [place] [address] Irish Sepulveda FNP 505 [place] [address] 07/05/2025 10:00 AM EDT Nutrition [facility] DIABETES/NTRN [address] [place] [address] [place] [address] 07/16/2025 11:00 AM EDT Medication Management [facility] MED & PEDS [address] [place] [address] Lisa Carney, PharmD [address] [place] [address] documented as of this encounter Visit Diagnoses Not on filedocumented in this encounter Additional Health Concerns Assessment Noted Time PHQ-9 Depression Total Score: 21 025 9:59 AM EDT documented as of this encounter Care Teams Cook Cold Meat Relationship Specialty Start Date End Date Irish Sepulveda FNP [address] [place] [address] PCP - General Family Medicine 11/12/21 Lisa Carney, Stephanie [address] [place] [address] Pharmacist Pharmacy 05/28/25 documented as of this encounter
--- OUTSIDE RECORDS SUMMARY | 2025-06-20 13:57 | XMS_ITS | Encounter Summary ---
Author Organization [employer] Address [address] [place] [address] 7 [place] [address] Care Team Providers Care Geophysical Prospecting Surveyor Name Role Phone Irish Sepulveda Primary Care Provider [phone] Lisa Carney PharmD Unavailable [phone] Reason for Referral * Consultation (Routine) - Authorized Specialty Diagnoses / Procedures Referred By Marian t Referred To Contact Nutrition Diagnoses Type 2 diabetes mellitus with hyperglycemia, without long-term current use of insulin (HCC) Sheri Pak MD [address] [place] [address] Phone: tel: fax: Referral ID Status Reason Start Date Expiration Date Visits Requested Visits Authorized [id number] Authorized Consult and Treat 04/23/2025 04/23/2026 1 1 * Consultation (Routine) - Authorized Specialty Diagnoses / Procedures Referred By Contsoledad t Referred To Contact Pharmacy Diagnoses Type 2 diabetes mellitus with hyperglycemia, without long-term current use of insulin (HCC) Sheri Pak MD [address] [place] [address] Phone: tel: fax: Referral ID Status Reason Start Date Expiration Date Visits Requested Visits Authorized [id number] Authorized Consult and Treat 04/23/2025 04/23/2026 6 6 Scheduling Instructions Newly diagnosed and A1C of 11 Encounter Details Date Type Department Care Team (Late st Contact Info) Description 04/23/2025 Orders Only [facility] MEDICINE [address] [facility] [place] [address] Sheri Pak MD [address] [facility] [place] [address] Type 2 diabetes mellitus with hyperglycemia, without long-term current use of insulin (CMS/HCC) (Primary Dx) Social History Tobacco Use Types Packs/Day Years [...] Description 07/02/2025 11:15 AM EDT Office Visit [facility] MED & PEDS [address] [place] [address] Irish Sepulveda FNP [address] [place], [place] 07/05/2025 10:00 AM EDT Nutrition [facility] DIABETES/NTRN [address] [place], [place] [phone] [place] [address] 07/16/2025 11:00 AM EDT Medication Management [facility] MED & PEDS [address] [place], [place] [phone] Lisa Carney PharmD [address] [place], [place] Scheduled Referrals Name Type Priority Associated Diagnoses Orde r Schedule Referral to Pharmacy CDTM Outpatient Referral Routine Type 2 diabetes mellitus with hyperglycemia, without long-term current use of insulin ([facility]) Ordered: 04/23/2025 Referral to Nutrition Therapy Outpatient Referral Routine Type 2 diabetes mellitus with hyperglycemia, without long-term current use of insulin ([facility]) Expected: 04/23/2025 (Approximate), Expires: 04/23/2026 documented as of this encounter Visit Diagnoses Diagnosis Type 2 diabetes mellitus with hyperglycemia, without long-term current use of insulin ([facility])- Primary documented in this encounter Additional Health Concerns Assessment Noted Time PHQ-9 Depression Total Score: 14 024 1:30 PM EDT documented as of this encounter Care Teams Geophysical Prospecting Surveyor Relationship Specialty Start Date End Date Irish Sepulveda FNP [address] [place] [address] PCP - General Family Medicine 11/12/21 Lisa Carney PharmD [address] [place] [address] Pharmacist Pharmacy 05/28/25 documented as of this encounter
--- OUTSIDE RECORDS SUMMARY | 2025-06-20 13:57 | XMS_ITS | Encounter Summary ---
Author Organization [employer] Address [address] [place] [address] 7 [place] [address] Care Team Providers Care Mri Ct Tech Name Role Phone Irish Sepulveda Primary Care Provider [phone] Lisa Carney PharmD Unavailable [phone] Reason for Visit * Reason Onset Date Comments Prior Authorization 06/06/2025 Encounter Details Date Type Department Care Team ([facility] st Contact Info) Description 06/06/2025 Telephone [facility] MED & PEDS [address] [place], [place] [phone] Irish Sepulveda FNP [address] [place], [place] [phone] Prior Authorization Social History Tobacco Use Types Packs/Day Years [...] encounter Miscellaneous Notes * Telephone Encounter - Titi Bass - 06/15/2025 3:11 PM EDT Tc from pt reporting that the PA was not received and is requesting for it to be sent. * Telephone Encounter - Melody Yousif - 06/13/2025 3:34 PM EDT Tc from pt requesting for PA to be sent again stating not received and is requesting a call back when put in again Contact pt at [phone] * Telephone Encounter - Elvie De La Torre RN - 06/06/2025 3:01 PM EDT [facility] PA sent today for device andsensors under covermymeds. * Telephone Encounter - Melody Yousif - 06/06/2025 11:44 AM EDT Tc from pt stating a PA is needed for Continuous Glucose Bookmaker Map (FreeStyle Erich 3 [place]) device Contact pt at [phone] documented in this encounter Plan of Treatment Upcoming Encounters Date Type Department Care Team (Late st Contact Info) Description 07/02/2025 11:15 AM EDT Office Visit [facility] MED & PEDS [address] [place] [address] Irish Sepulveda FNP [address] [place] [address] 07/05/2025 10:00 AM EDT Nutrition [facility] DIABETES/NTRN [address] [place] [address] [place] [address] 07/16/2025 11:00 AM EDT Medication Management [facility] MED & PEDS [address] [place] [address] Lisa Carney PharmD [address] [place] [address] documented as of this encounter Visit Diagnoses Not on filedocumented in this encounter Additional Health Concerns Assessment Noted Time PHQ-9 Depression Total Score: 21 025 9:59 AM EDT documented as of this encounter Care Teams Mri Ct Tech Relationship Specialty Start Date End Date Irish Sepluveda FNP [address] [place] [address] PCP - General Family Medicine 11/12/21 Lisa Carney PharmD [address] [place] [address] Pharmacist Pharmacy 05/28/25 documented as of this encounter
--- OUTSIDE RECORDS SUMMARY | 2025-06-20 13:57 | XMS_ITS | Clinical Summary ---
Author Organization [employer] Address [address] [place] [address] 7 [place] [address] Care Team Providers Care Diagnostic Technologist Name Role Phone AlejandraIrish grimes JANI Primary Care Provider [phone] Lisa Carney PharmD Unavailable [phone] Allergies Active Allergy Reactions Criticality Noted Date [...] as needed 18 g 11 023 Active propranolol (Inderal) 10 MG tablet Active amphetamine-de xtroamphetamin e XR (Adderall XR) 30 MG 24 hr capsule 022 Active lidocaine (Lidoderm) 5 % patch APPLY 1 PATCH BY TRANSDERMAL ROUTE EVERY DAY (MAY WEAR UP TO 12HOURS.) 30 patch 3 023 Active pantoprazole (ProtoNix) 40 MG EC tabletIndicati ons:Gastroesop hageal reflux disease, unspecified whether esophagitis present Take 1 tablet (40mg) by mouth daily 90 tablet 2 025 Active norethindrone (Micronor) 0.35 MG tabletIndicati ons:Healthcare maintenance 1 tablet by mouth at same time each day 90 tablet 3 025 Active lurasidone (Latuda) 60 MG tablet Take 1 tablet (60 mg) by mouth in the morning. 90 tablet Active QUEtiapine (SEROquel) 100 MG tabletIndicati ons:Depressive disorder TAKE 1 TABLET BY MOUTH EVERY DAY 90 tablet Active gabapentin (Neurontin) 300 MG capsuleIndicat ions:Mood disorder (CMS/HCC) TAKE 1 CAPSULE BY MOUTH TWICE A DAY 180 capsule Active triamcinolone (Kenalog) 0.1 % creamIndicatio ns:Other atopic dermatitis Mix 80g tube of Triamcinolone 0.1% cream with 16oz jar of CeraVe cream. Apply 1-2 times per day after shower or bath from the neck down (not on face) 80 g 1 Active metFORMIN (Glucophage) 500 MG tablet Take 2 tablets (1,000 mg) by mouth with breakfast and with evening meal. 120 tablet 11 025 2025 Active busPIRone (Buspar) 15 MG tablet Take 15 mg by mouth 2 times daily. Active ibuprofen 600 MG tablet TAKE 1 TABLET (600 MG) BY MOUTH EVERY 8 (EIGHT) HOURS IF NEEDED FOR MODERATE PAIN OR FEVER. 100 tablet 2 Active glucose blood (FREESTYLE LITE) test stripIndicatio ns:Type 2 diabetes mellitus without complication, with long-term current use of insulin ([facility]) Use to test blood sugar 1-3 times daily 100 each 025 2025 Active Lancets miscIndication s:Type 2 diabetes mellitus without complication, with long-term current use of insulin ([facility]) Use to test blood sugar 1-3 times daily 100 each Active Alcohol Swabs 70 % padsIndication s:Type 2 diabetes mellitus without complication, with long-term current use of insulin ([facility]) Use up to 4 times per day (test BG and inject insulin) 100 each Active insulin glargine (Lantus SoloStar) 100 UNIT/ML penIndications :Type 2 diabetes mellitus without complication, with long-term current use of insulin ([facility]) Inject 10 units subcutaneously every night. Increase by 2 units every 3 days if FBG > 130mg/dl, max 20 units per day 15 mL 2 Active pen needle 32G x 4 mm miscIndication s:Type 2 diabetes mellitus without complication, with long-term current use of insulin ([facility]) Use once daily 100 each 3 025 2025 Active Continuous Glucose Sensor (FreeStyle Erich 3 Plus Sensor) miscIndication s:Type 2 diabetes mellitus without complication, with long-term current use of insulin ([facility]) 1 each every 15 days. 2 each Active glucose blood (FreeStyle Precision Elvin Test) test stripIndicatio ns:Type 2 diabetes mellitus without complication, with long-term current use of insulin ([facility]) Test blood sugar up to 3 times daily as directed 100 each Active Lancet Devices (Lancing Device) miscIndication s:Type 2 diabetes mellitus without complication, with long-term current use of insulin ([facility]) Use as directed 1 each Active Blood Glucose Monitoring Suppl (FreeStyle [place] Lite) w/Device kitIndications :Type 2 diabetes mellitus without complication, with long-term current use of insulin ([facility]) Use to test blood sugar 1-3 times daily 1 kit Active empagliflozin (Jardiance) 10 MGIndications: Type 2 diabetes mellitus without complication, with long-term current use of insulin ([facility]) Take 1 tablet (10 mg) by mouth Once per day. 30 tablet 2 Active Dulaglutide (Trulicity) 0.75 MG/0.5ML solution auto-injector Inject 0.75 mg under the skin 1 (one) time per week. 2 mL 2 025 2024 Discontinued(A lternate therapy) Blood Glucose Monitoring Suppl (FreeStyle [place] Lite) w/Device kitIndications :Type 2 diabetes mellitus without complication, with long-term current use of insulin ([facility]) Use to test blood sugar 1-3 times daily 1 kit 025 2024 Discontinued(R eorder (will not trigger notification to Pharmacy)) Continuous Glucose Sensor (FreeStyle Erich 3 Plus Sensor) miscIndication s:Type 2 diabetes mellitus without complication, with long-term current use of insulin (HCC) 1 each every 15 days. 2 each 025 2024 Discontinued(R eorder (will not trigger notification to Pharmacy)) Continuous Glucose Referral Specialist (FreeStyle Erich 3 [place]) deviceIndicati ons:Type 2 diabetes mellitus without complication, with long-term current use of insulin (HCC) 1 each 1 (one) time for 1 dose. 1 each 025 2024 Discontinued(R eorder (will not trigger notification to Pharmacy)) glucose blood (FreeStyle Precision Elvin Test) test stripIndicatio ns:Type 2 diabetes mellitus without complication, with long-term current use of insulin (HCC) Test blood sugar up to 3 times daily as directed 100 each 025 2024 Discontinued(R eorder (will not trigger notification to Pharmacy)) Continuous Glucose Referral Specialist (FreeStyle Erich 3 [place]) deviceIndicati ons:Type 2 diabetes mellitus without complication, with long-term current use of insulin (HCC) 1 each 1 (one) time for 1 dose. 1 each 025 2024 Active Problems Problem Noted Date Diagnosed Date Gallstone 05/13/2025 Overview (05/13/2025): Sep 2024: single gallstone identified on abd US Biliary dyskinesia 05/13/2025 Overview (05/13/2025): Following with [facility] - АЛЕКСАНДР Nguyen Experiences sudden and severe onset of nausea & vomiting x multiple years. Associated with eructation that smells of sulfur Cont with pantoprazole, zofran PRN 12/22/24: NM hepatobiliary w/ pharm. No significant gallbladder emptying is seen after CCK administration, consistent with biliary dyskinesia. 12/28/2024: NM gastric emptying study. Impression-mildly delayed gastric emptying at 4 hours. January 2025: consult with [facility] - Dr. Rucker. Plan for consideration of cholecystectomy 02/16/25: Barium swallow completed 03/09/2025: CT abdomen pelvis - No acute findings. Mild to moderate stool burden in colon. Assessment & Plan (05/13/2025 5:22 PM EDT): Cont with Cream, Miralax, pantoprazole, reglan TID Plan for lap cholecystectomy after BG well controlled Type 2 diabetes mellitus wit hout complication, without long-term current use of insulin 05/13/2025 Assessment & Plan (05/13/2025 5:29 PM EDT): Diagnosed: Apr 2025. A1c 11%. Initiated on metformin 500mg BID. Today, reviewed basic education and pathology of T2DM Plan: Increase to metformin 1000mg BID Start Trulicity 0.75mg subcutaneous weekly. Reviewed med safety and SE. No contraindications. Referral to [facility] Education regarding carb monitoring and low-carb diet reviewed Shared decision making to defer checking home BG readings at this time given low risk of hypoglycemia with meds and no insulin titration. Plan to further discuss next appt. Recommended review of [place] [employer] website Statin & OLINDA/ARB: discuss at follow up. Stepwise increase of meds. Transaminitis 09/29/2024 Overview (05/13/2025): Lab Results Component Value Date HEPBSURFACAG Negative 09/11/2024 HEPBSURFAB REACTIVE 09/11/2024 HEPBCOREAB Nonreactive 09/11/2024 Lab Results Component Value Date AST 55 (H) 04/20/2025 ALT 74 (H) 04/20/2025 TOTPROTEIN 7.7 04/20/2025 ALB 4.0 04/20/2025 ALP 98 04/20/2025 TOTALBILIRUB 1.1 (H) 04/20/2025 - Hepatitis: Hep B immune, Hep C negative - Lifestyle interventions encouraged - Abd US completed Sep 2024 - demonstrated increased echogenicity with focal areas of decreased echogenicity Assessment & Plan (09/29/2024 12:37 PM EST): [...] fasting. Mood disorder 06/18/2024 Assessment & Plan (05/13/2025 5:26 PM EDT): Hx of ADHD, MDD, and PTSD. Previously following with psych provider and team through [facility]. However, psych prescriber leaving, and in need of establishing with new provider. Bridge rx through PCP, pending new psych prescriber No acute concerns, mental health stable Assessment & Plan (09/17/2024 9:23 PM EST): Hx of ADHD, MDD, and PTSD. Previously following with psych provider and team through [facility]. However, psych prescriber leaving, and in need of establishing with new provider. Bridge rx through PCP, scheduled for initial consult with [facility] Psych WING COMMANDER No acute concerns, mental health stable Assessment [...] acute concerns, mental health stable Referral to [facility] BH team for BE with referral to psych prescriber - possibly telehealth 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 Assessment & Plan (12/28/2023 7:17 PM EDT): Diffuse enlargement, denies symptoms, Labs and ultrasound ordered Cigarette smoker 08/19/2023 Overview (08/19/2023): -Cigg/day: 5 -Encouraged smoking cessation resources such as pharmacomtherapy, [facility] smoking cessation group, and [facility] pharmacy smoking cessation clinic -Currently following with Sheron for assistance with smoking cessation Assessment & Plan (12/28/2023 7:17 PM EDT): Actively cutting back, has patches, declines further supports today Healthcare maintenance 07/30/2023 Assessment & Plan (09/17/2024 9:29 PM EST): -Optometry: referral to [facility] Eye Care previously placed -Pap: NILM, HPV neg on 08/17/23. Next due: 2027 -PE: due - Routine labs ordered today including asymptomatic STI screening - Refilled POP for contraception. Reviewed med safety and SE Assessment & Plan (07/31/2023 11:09 AM EST): -Optometry: referral to [facility] Eye Care previously placed -Pap: Pt reports it has been > 5 years since last pap. Missed last pap appt, scheduled with [facility] CNM -STI: previously ordered, pending -Dental: discuss [...] referred counseling Opioid dependence on agonist therapy (CMS/HCC) 0 12/10/2016 Migraine 12/10/2016 Encounters Date Type Department Care Team Description 06/19/2025 Telephone [facility] [address] [place] [address] Irish Sepulveda FNP Appointment Request 06/19/2025 Travel 06/18/2025 Telephone [facility] MEDICINE [address] [place] [phone] Nutrition referral 06/14/2025 Refill [facility] [address] [place] [phone] Irish Sepulveda FNP 06/12/2025 Orders Only [facility] [address] [place] [address] Irish Sepulveda FNP Transaminitis (Primary Dx) 06/11/2025 Telephone [facility] MED[facility] [address] [place] [phone] Irish Sepulveda FNP Call Back Request 06/06/2025 Telephone [facility] [address] [place] [address] Irish Sepulveda FNP Prior Authorization 06/06/2025 Telephone [facility] [address] [place] [address] Irish Sepulveda FNP Referral 06/05/2025 Travel 06/04/2025 Telephone [facility] MED[facility]INE [address] [place] [phone] Irish Sepulveda FNP Medication Question; Appointment Request 05/31/2025 Telephone [facility] [address] [place] [phone] Juan C Mena PHQ-9 Follow up 05/28/2025 Travel 05/14/2025 Refill [facility] MED[facility]INE [address] [place] [phone] Irish Sepulveda FNP 05/08/[address] [address] Irish Sepulveda FNP 05/07/2025 9:15 AM EDT Office Visit [facility] [address] [place] [address] Irish Sepulveda FNP Type 2 diabetes mellitus without complication, without long-term current use of insulin (CMS/HCC) (Primary Dx); Healthcare maintenance; Mood disorder (CMS/HCC); Other atopic dermatitis; Hidradenitis suppurativa; Transaminitis; Calculus of gallbladder without cholecystitis without obstruction; Biliary dyskinesia 05/07/2025 Travel 05/04/2025 Refill [facility] MED[facility] [address] [place] [phone] Irish Sepulveda FNP Mood disorder (CMS/HCC) 05/04/2025 Telephone [facility] [address] [place] [address] Irish Sepulveda FNP chart prep 04/27/[address] [address] Irish Sepulveda FNP Referral 04/23/2025 Orders Only [facility] [address] [place] [phone] Sheri Pak MD Type 2 diabetes mellitus with hyperglycemia, without long-term current use of insulin (CMS/HCC) (Primary Dx) 04/20/2025 Orders Only GENERIC EXTERNAL DATA DEPARTMENT Provider, Generic External Data 04/20/2025 Results Follow-Up [address] [address] Sheri Pak MD Hemoglobin A1c 04/16/2025 Telephone [facility] [address] [place] [address] Irish Sepulveda FNP Med Refill 04/10/2025 Telephone [facility] MEDICINE [address] [place] [address] Irish Sepulveda FNP Med Refill 04/05/2025 Telephone [facility] MED[facility] [address] [place] [address] Irish Sepulveda FNP Med Refill 03/29/2025 Refill [facility] [address] [place] [address] Irish Sepulveda FNP Mood disorder (CMS/HCC) from Last 3 Months Immunizations Immunization Administration Dates Next Due Influenza Injectable Quadriv [...] Sign Reading Time Taken Comments Blood Pressure 110/60 05/07/2025 9:16 AM EDT Pulse 52 05/07/2025 9:16 AM EDT Temperature 36.4 C (97.5 F) 05/07/2025 9:16 AM EDT Respiratory Rate 12 05/07/2025 9:16 AM EDT Oxygen Saturation 97% 10/02/2024 1:10 PM EST Inhaled Oxygen Concentration - - Weight 79.8 kg (176 lb) 05/07/2025 9:16 AM EDT Height 157.5 cm (5' 2 ) 05/07/2025 9:16 AM EDT Body Mass Index 32.19 05/07/2025 9:16 AM EDT Plan of Treatment Upcoming Encounters Date Type Department Care Team (Late st Contact Info) Description 07/02/2025 11:15 AM EDT Office Visit [facility] [address] [place] [address] Irish Sepulveda FNP [address] [place] [address] 07/05/2025 10:00 AM EDT Nutrition [facility] DIABETES/NTRN [address] [place] [address] Melony Herrera, RD [address] [place] [address] 07/16/2025 11:00 AM EDT Medication Management [facility] [address] [place] [address] Lisa Carney, PharmD [address] [place] [address] Health Maintenance Due Date Last Done Comments Dental Oral Exam 1985 Dental Prophylaxis 1985 Dental X-Ray: Full Mouth 1985 Diabetes: Foot Exam 1995 Eye Exam 1995 Alcohol/Substance Use Screening 1997 HPV Vaccines (1 - 3-dose series) 01/11/2000 Diabetes: Urine Protein Screening 01/11/2004 Hepatitis A Vaccines (1 of 2 - Risk 2-dose series) 01/11/2004 Dental X-Ray: Bitewings 08/24/2024 08/23/2023 Mammogram 2025 COVID-19 Vaccine ( season) 2025 12/26/2021, 12/03/2021 Influenza Vaccine (#1) 2025 , 07/30/2023, 07/15/2022, Additional history exists Diabetes: Hemoglobin A1C 07/21/2025 04/20/2025, 08/21 Family Planning (PISQ) 10/02/2025 10/02/2024 Depression Monitoring 11/07/2025 05/07/2025, 025 Lipid Panel 04/20/2026 04/20/2025, 09/11/2024 Disability Screening 05/07/2026 05/07/2025 SDOH Screening 05/07/2026 05/07/2025 Tobacco Screening 05/07/2026 05/07/2025 Cervical Cancer Screening 08/17/2028 HPV/Cotest 08/17/2028 08/17/2023 Pap Smear 08/17/2028 08/17/2023 DTaP/Tdap/Td Vaccines (3 - Td or Tdap) 07/15/2032 07/15/2022, 09/18/2016 Zoster Vaccines (1 of 2) 2035 RSV Patients and Patients Aged 60 years or older (1 - 1-dose 75+ series) 01/11/2060 Pneumococcal Vaccine: Pediatrics (0 to 5 Years) and At-Risk Patients (6 to 49) Years Completed 08/16/2023, 10/27/2016 HIV Screening Completed 09/11/2024 HIB Vaccines Aged Out No longer eligi ble based on patient's age to complete this topic Hepatitis B Vaccines Discontinued IPV Vaccines Aged Out No longer eligi ble based on patient's age to complete this topic Meningococcal B Vaccine Aged Out No l onger eligible based on patient's age to complete [...] Procedure Name Priority Date/Time Associated Diagnosis Comments POCT GLUCOSE Routine 05/07/2025 9:32 AM EDT Healthcare maintenance CREATININE, SERUM Routine 04/20/2025 12: 25 PM EDT UREA NITROGEN (BUN) Routine 04/20/2025 1 2:25 PM EDT HEPATIC FUNCTION PANEL Routine 04/20/2025 12:25 PM EDT Hyperglycemia HEMOGLOBIN A1C Routine 04/20/2025 12:25 PM EDT Hyperglycemia LIPID PANEL, STANDARD Routine 04/20/2025 12:25 PM EDT Hyperglycemia HIV 1/2 ANTIGEN/ANTIBODY, FOURTH GENERATION W/RFL Routine 09/11/2024 11:53 AM EST Healthcare maintenance BITEWING - SINGLE RADIOGRAPHIC IMAGE Routine 08/23/2023 3:30 PM EST Necrosis of dental pulp HPV MRNA E6/E7 REFLEX TO HPV 16, 18/45 Routine 08/17/2023 1:41 PM EST PAP SMEAR Routine 08/17/2023 1:41 PM EST from Last 3 Months or Most Recently Relevant to Health Maintenance Results * (ABNORMAL) POCT Glucose (05/07/2025 9:32 AM EDT) Glucose Blood, POC 254(A) 60 - 200 mg/dL QC Media Lot # [id number] Lot# Expiration Date [id number] Blood Capillary blood specimen / Unknown 05/07/2025 9:32 AM EDT Irish Sepulveda TECHNICAL SOURCING RECRUITER POINT OF CARE TEST ENTER/EDIT ORDERABLES Final Result * Creatinine, Serum (04/20/2025 12:25 PM EDT) Creatinine, Serum 0.71 0.5 - 1.4 mg/dL [facility] Estimated Glomerular Filt Rate >60 [facility] Comment:Chronic Kidney Disea se: Estimated GFR < 60 mL/min/1.62t3Azdcft Kidney Disease: Estimated GFR < 15 mL/min/1.73m2 04/20/2025 12:2 5 PM EDT 04/20/2025 12:25 PM EDT us Generic External Data Provider LAB BLOOD ORDERAB LES Final Result [facility] [address] [place] [phone] * (ABNORMAL) BUN (Blood Urea Nitrogen) (04/20/2025 12:25 PM EDT) Urea Nitrogen (BUN) 6(L) 9 - 16 mg/dL [facility] 04/20/2025 12:2 5 PM EDT 04/20/2025 12:25 PM EDT Generic External Data Provider LAB BLOOD ORDERAB LES Final Result [facility] [address] [place] [phone] * (ABNORMAL) Hemoglobin A1c (04/20/2025 12:25 PM EDT) Hemoglobin A1c 11.0(H) <6.0 % [facility] Comment:Hemoglobin A1C Refer ence Range Adults: 4.8 - 6.0 % Non diabetic: < 6.0 % Goal: < 7.0 %Additional Action Suggested: > 8.0 %Note: Hemoglobin A1c results are invalid for patients with abnormal amounts of HbF. Blood transfusions may impact the HbA1c concentration in the patient sample. Estimated Average Glucose 269 mg/dL [facility] Comment:eAG = Estimated ave rage glucose which is %A1C expressed asaverage glucose, using the formula of the [id number] Glucose study (ADAG), Diabetes Care, Vol.31,#8,Apr. 2007 Blood Venous blood specimen / Unknown 04/20/2025 12:25 PM EDT 04/20/2025 12:25 PM EDT us Irish Sepulveda TECHNICAL SOURCING RECRUITER LAB BLOOD ORDERABLES Final Res ult Performing Organization Address [facility] Co de Phone Number [facility] [address] [place] [phone] * (ABNORMAL) Hepatic Function Panel (04/20/2025 12:25 PM EDT) Bilirubin, Total 1.1(H) 0.0 - 1.0 mg/dL [facility] Bilirubin, Direct 0.3 0.0 - 0.5 mg/dL [facility] Aspartate Amino Transferase 55(H) 5 - 31 U/L [facility] Comment:Slight Hemolysis.Int erpret result with caution. Alanine Aminotransferase 74(H) 0 - 31 U/L [facility] Total Protein 7.7 6.5 - 8.0 g/dL [facility] Albumin Level 4.0 3.5 - 5.0 g/dL [facility] Alkaline Phosphatase 98 39 - 117 U/L [facility] Blood Venous blood specimen / Unknown 04/20/2025 12:25 PM EDT 04/20/2025 12:25 PM EDT us Irish Sepulveda TECHNICAL SOURCING RECRUITER LAB BLOOD ORDERABLES Final Res ult Performing Organization Address City/[facility]/ZIP Co de Phone Number [facility] [address] [place] [phone] [phone] * (ABNORMAL) Lipid Panel, Standard (04/20/2025 12:25 PM EDT) Triglycerides 158(H) <150 mg/dL [facility] Comment:Desirable Triglyceri de: less than 150 mg/dLBorderline High Triglyceride 150-199 mg/dLHigh Triglyceride: 200-499 mg/dLVery High Triglyceride: greater than or equal to 5OO mg/dL Cholesterol 230(H) <200 mg/dL [facility] Comment:Desirable Cholestero l: less than 200 mg/dLBorderline High Cholesterol: 200-239 mg/dLHigh Cholesterol: greater than 239 mg/dL LDL Cholesterol Calculated 167(H) <100 mg/dL [facility] Comment:Desirable LDL: less than 100 mg/dLNear Optimal/Above Optimal LDL: 110- 129 mg/dLBorderline High LDL: 130-159 mg/dLHigh LDL: 160-189 mg/dLVery High LDL: greater than or equal to 190 mg/dL HDL Cholesterol 32(L) >40 mg/dL [facility] Comment:Desirable HDL: great er than 40 mg/dL Note: This HDL assay may give artificially low results in patients with liver disease. Blood Venous blood specimen / Unknown 04/20/2025 12:25 PM EDT 04/20/2025 12:25 PM EDT us Irish Sepulveda TECHNICAL SOURCING RECRUITER LAB BLOOD ORDERABLES Final Res ult Performing Organization Address City/[facility]/ZIP Co de Phone Number [facility] [address] [place] [address] [phone] * HIV-1/2 Antigen and Antibodies, Fourth Generation, with Reflexes (09/11/2024 11:53 AM EST) HIV AB/AG Nonreactive Nonreactive [facility] Comment:HIV-1 p24 Ag and/or HIV-1/HIV-2 Ab not detected.A test result that is nonreactive does not exclude thepossibility of exposure to or infection with HIV-1 and/orHIV-2. Nonreactive results in this assay for individualswith prior exposure to HIV-1 and/or HIV-2 may be due toantigen and antibody levels that are below the limit ofdetection of this assay.The [employer] HIV Ag/Ab Combo assay result andsupplemental assay results should be interpreted inconjunction with the patient's clinical presentation,history and other laboratory results. If the results areinconsistent with clinical evidence, additional testing issuggested to confirm the result. Blood Venous blood specimen / Unknown 09/11/2024 11:53 AM EST 09/11/2024 3:01 PM EST us Irish Sepulveda [facility] LAB BLOOD ORDERABLES Final Res ult [facility] [address] [place] [phone] * HPV mRNA E6/E7 w/Reflex to HPV Genotypes 16, 18/45 (08/17/2023 1:41 PM EST) HPV nRNA E6/E7 Not Detected Not Detected [facility] Comment:Methodology: Transcr iption-Mediated AmplificationThis assay detects E6/E7 viral messenger RNA (mRNA) from 14high-risk HPV types (16,18,31,33,35,39,45,51,52,56,58,59,66,68).Cervical sources are required for HPV testing.If a vaginal source from a patient who has had atotal hysterectomy with removal of cervix wassubmitted, please contact the testing laboratoryfor alternative testing options.For additional information, please refer [email or web address]/faq/EXK553v7(This link if provided for information/educational purposes only.)THIS TEST WAS PERFORMED AT:[facility] [place] [phone] M LEVY MD HPV mRNA E6/E7 TNP [facility] HPV 16 RNA TNP [facility] HPV 18/45 RNA TNP [facility] 08/17/2023 1:41 PM EST 08/18/2023 8:00 AM EST Wyatt Baumann CNM LAB CYTOLOGY ORDERABLES F inal Result [facility] [address] [place] [phone] [phone] * Pap Smear (08/17/2023 1:41 PM EST) 08/17/2023 1:41 PM EST 08/18/2023 8:00 AM EST Narrative [facility] - 08/26/2023 4:13 PM EST ----- ------- Name: Jean-Pauldenisacatarina Age/Sex: 38/F : 1985 Unit#: [id number] Attend Dr: WYATT BAUMANN CNM Re08/17/23 Status: DEP REF Location: [facility] Disch: ----- ------- SPEC : [id number] RECD: 08/18/23 STATUS: RODOLFO SANCHEZ NUM: [id number] KARENA: 08/17/23-[address] [facility] [address]: WYATT BAUMANN CNM ENTERED: 08/18/23 SP TYPE: Pap Smr OTHR DR: ORDERED: Pap Smear Interpretation Satisfactory for evaluation. No endocervical cells seen. Negative for intraepithelial lesion or malignancy. HPV mRNA E6/E7: NOT DETECTED This assay detects E6/E7 viral messenger RNA (mRNA) from 14 high-risk HPV types (16, 18, 31, 33, 35, 39, 45, 51, 52, 56, 58, 59, 66, 68) HPV testing performed by [facility], [place], [place]. See reference laboratory portion of the EMR for entire report. Clinical Information LMP: Amenorrheic on OCP Previous PAP test: 7 yrs, WNL Material Received ThinPrep-Cervical ----- ------- Signed (signature on file) SUKHI Prince (ASCP) 08/26/23 1613 ----- ------- END OF REPORT Wyatt Baumann CNM LAB CYTOLOGY ORDERABLES F inal Result [facility] [address] [phone] from Last 3 Months or Most Recently Relevant to Health Maintenance Insurance [facility] C3 DENTAL-[facility] MEDICAID STAND ADULT Care Teams Diagnostic Technologist Relationship Specialty Start Date End Date Irish Sepulveda FNP [address] [place] [address] PCP - General Family Medicine 11/12/21 Lisa Carney, JanetD [address] [place] [address] Pharmacist Pharmacy 05/28/25
--- OUTSIDE RECORDS SUMMARY | 2025-06-20 13:57 | XMS_ITS | Encounter Summary ---
Author Organization [employer] Address [address] [place] [address] 7 [place] [address] Care Team Providers Care Cognos Developer Name Role Phone Irish Sepulveda Primary Care Provider [phone] Lisa Carney PharmD Unavailable [phone] Reason for Visit * Reason Onset Date Comments US Order 06/21/2024 Encounter Details Date Type Department Care Team ([facility] st Contact Info) Description 06/21/2024 Telephone [facility] MEDICINE [address] [place] [address] Irish Sepulveda FNP [address] [place] [address] US Order Social History Tobacco Use Types [...] any questions you can contact Mansi at [phone]. * Telephone Encounter - Teddy Roque - 06/21/2024 10:03 AM EDT Tc from Edilberto with [facility] calling in regards US order of the abdomen stating it is missing pcp signature. They're requesting for a order to be resent with signature. If any questions you can contact Edilberto at [phone]. documented in this encounter Plan of Treatment Upcoming Encounters Date Type Department Care Team (Late st Contact Info) Description 07/02/2025 11:15 AM EDT Office Visit [facility] MED & PEDS [address] [place] [address] Irish Sepulveda FNP [address] [place] [address] 07/05/2025 10:00 AM EDT Nutrition [facility] [address] [place] [address] Melony Herrera, RD [address] [place] [address] 07/16/2025 11:00 AM EDT Medication Management [facility] [address] [place] [address] Lisa Carney, Stephanie [address] [place] [address] documented as of this encounter Visit Diagnoses Not on filedocumented in this encounter Additional Health Concerns Assessment Noted Time PHQ-9 Depression Total Score: 10 023 11:21 AM EST documented as of this encounter Care Teams Cognos Developer Relationship Specialty Start Date End Date Irish Sepulveda FNP [address] [place] [address] PCP - General Family Medicine 11/12/21 Lisa Carney, JanetD [address] [place] [address] Pharmacist Pharmacy 05/28/25 documented as of this encounter
== END 2025-06-20 13:47 | disposition home or self-care (01) ==
LOC: HO.HGI 12:37
PROVIDERS: PCP Registered Nurse; Visit Provider Nurse Practitioner
DX: K21.9 Gastro-esophageal reflux disease without esophagitis (principal); R11.2 Nausea with vomiting, unspecified; K81.9 Cholecystitis, unspecified
CPT/HCPCS: 99213

== ENCOUNTER → 2025-06-20 12:36 | Outpatient (BNVA) | payer MEDICAID, SELFPAY | PROVIDERS: PCP Registered Nurse; Visit Provider Nurse Practitioner | DX: K21.9 Gastro-esophageal reflux disease without esophagitis (principal); R11.2 Nausea with vomiting, unspecified; K81.9 Cholecystitis, unspecified; B18.2 Chronic viral hepatitis C; K82.8 Other specified diseases of gallbladder | CPT/HCPCS: 99212 ==

== ENCOUNTER 2025-08-14 09:08 | Day surgery (SDC) | payer MEDICAID, SELFPAY ==
--- OUTSIDE RECORDS SUMMARY | 2025-07-30 13:20 | XMS_ITS | Encounter Summary ---
Author Organization [employer] Address [address] [place] [address] Care Team Providers Care Residential Support Worker Name Role Phone Irish Sepulveda JANI Primary Care Provider [phone] Lisa Carney PharmD Unavailable [phone] Encounter Details Date Type Department Care Team (Late st Contact Info) Description 01/27/2023 Orders Only [facility] MEDICINE [address] [place] [address] Marimar Bae LPN Social History Tobacco Use [...] Care Team (Late st Contact Info) Description 08/02/2025 1:00 PM EST Clinical Support [facility] [address] [place] [address] [place] [address] 08/21/2025 11:30 AM EST Office Visit [facility] MED & PEDS [address] [place] [address] Castillo Calles MD 505 [place] [address] 10/02/2025 11:00 AM EST Medication Management [facility] MED [facility] PED[facility] [address] [place] [address] Lisa Carney PharmD [address] [place] [address] 10/12/2025 2:30 PM EST Office Visit [facility] MED [facility] PEDS [address] [place] [address] Irish Sepulveda FNP 505 [place] [address] documented as of this encounter Visit Diagnoses Not on filedocumented in this encounter Care Teams Residential Support Worker Relationship Specialty Start Date End Date Irish Sepulveda FNP [address] [place] [address] PCP - General Family Medicine 11/12/21 Lisa Carney, Stephanie [address] [place] [address] Pharmacist Pharmacy 05/28/25 documented as of this encounter
--- OUTSIDE RECORDS SUMMARY | 2025-07-30 13:20 | XMS_ITS | Encounter Summary ---
Author Organization [employer] Address [address] [place] [address] 7 [place] [address] Care Team Providers Care Hog Worker Name Role Phone Irish Sepulveda Primary Care Provider [phone] Lisa Carney PharmD Unavailable Reason for Referral * Consultation (Routine) - Authorized Specialty Diagnoses / Procedures Referred By Marian t Referred To Contact Nutrition Diagnoses Type 2 diabetes mellitus with hyperglycemia, without long-term current use of insulin (HCC) Sheri Pak MD [address] [place] [address] Phone: tel: fax: Referral ID Status Reason Start Date Expiration Date Visits Requested Visits Authorized [id number] Authorized Consult and Treat 04/23/2025 04/23/2026 1 1 * Consultation (Routine) - Authorized Specialty Diagnoses / Procedures Referred By Contsoledad t Referred To Contact Pharmacy Diagnoses Type 2 diabetes mellitus with hyperglycemia, without long-term current use of insulin (HCC) Sheri Pak MD [address] [place] [address] Phone: tel: fax: Referral ID Status Reason Start Date Expiration Date Visits Requested Visits Authorized [id number] Authorized Consult and Treat 04/23/2025 04/23/2026 6 6 Scheduling Instructions Newly diagnosed and A1C of 11 Encounter Details Date Type Department Care Team (Late st Contact Info) Description 04/23/2025 Orders Only [facility] MEDICINE [address] [facility] [place] [address] Sheri Pak MD [address] [facility] [place] [address] Type 2 diabetes mellitus with hyperglycemia, without [...] Description 08/02/2025 1:00 PM EST Clinical Support [facility] [address] [place] [address] [place] [address] 08/21/2025 11:30 AM EST Office Visit [facility] MED & PEDS [address] [place] [address] Castillo Calles MD 505 [place] [address] 10/02/2025 11:00 AM EST Medication Management [facility] MED & PEDS [address] [place] [address] Lisa Carney PharmD [address] [place] [address] 10/12/2025 2:30 PM EST Office Visit [facility] MED & PEDS [address] [place] [address] Irish Sepulveda FNP [address] [place] [address] Scheduled Referrals Name Type Priority Associated Diagnoses Orde r Schedule Referral to Pharmacy CDTM Outpatient Referral Routine Type 2 diabetes mellitus with hyperglycemia, without long-term current use of insulin (CMS/[facility]) Ordered: 04/23/2025 Referral to Nutrition Therapy Outpatient Referral Routine Type 2 diabetes mellitus with hyperglycemia, without long-term current use of insulin (CMS/HCC) Expected: 04/23/2025 (Approximate), Expires: 04/23/2026 documented as of this encounter Visit Diagnoses Diagnosis Type 2 diabetes mellitus with hyperglycemia, without long-term current use of insulin ([facility])- Primary documented in this encounter Additional Health Concerns Assessment Noted Time PHQ-9 Depression Total Score: 14 024 1:30 PM EDT documented as of this encounter Care Teams Hog Worker Relationship Specialty Start Date End Date Irish Sepulveda FNP [address] [place] [address] PCP - General Family Medicine 11/12/21 Lisa Carney PharmD [address] [place] [address] Pharmacist Pharmacy 05/28/25 documented as of this encounter
--- OUTSIDE RECORDS SUMMARY | 2025-07-30 13:20 | XMS_ITS | Encounter Summary ---
Author Organization [employer] Address [address] [place] [address] 7 [place] [address] Care Team Providers Care Core Piler Name Role Phone AlejandraIrish grimes JANI Primary Care Provider [phone] Lisa Carney PharmD Unavailable [phone] Reason for Visit * Reason Onset Date Comments appt extraction 11/09/2023 Encounter Details Date Type Department Care Team ([facility] st Contact Info) Description 11/09/2023 Telephone [facility] ADULT DENTAL [address] [place] [address] Chad Monsivais, DMD [address] [place] [address] appt extraction Social History Tobacco Use Types [...] Description 08/02/2025 1:00 PM EST Clinical Support [facility] DIAB[facility]ES/NTRN [address] [place] [address] Melony Herrera, RD 230 [place] [address] 08/21/2025 11:30 AM EST Office Visit [facility] MED & PEDS [address] [place] [address] Castillo Calles MD [address] [place] [address] 10/02/2025 11:00 AM EST Medication Management [facility] MED & PEDS [address] [place] [address] Lisa Carney PharmD [address] [place] [address] 10/12/2025 2:30 PM EST Office Visit [facility] MED & PEDS [address] [place] [address] Irish Sepulveda FNP [address] [place] [address] documented as of this encounter Visit Diagnoses Not on filedocumented in this encounter Additional Health Concerns Assessment Noted Time PHQ-9 Depression Total Score: 10 023 11:21 AM EST documented as of this encounter Care Teams Core Piler Relationship Specialty Start Date End Date Irish Sepulveda FNP [address] [place] [address] PCP - General Family Medicine 11/12/21 Lisa Carney, PharmD [address] [place] [address] Pharmacist Pharmacy 05/28/25 documented as of this encounter
--- OUTSIDE RECORDS SUMMARY | 2025-07-30 13:20 | XMS_ITS | Encounter Summary ---
Author Organization [employer] Address [address] [place] [address] 7 [place] [address] Care Team Providers Care Tinning Equipment Tender Name Role Phone Irish Sepulveda Primary Care Provider [phone] Lisa Carney PharmD Unavailable Reason for Visit * Reason Onset Date Comments Referral 02/16/2024 Encounter Details Date Type Department Care Team ([facility] st Contact Info) Description 02/16/2024 Telephone [facility] MEDICINE [address] [place] [address] Irish Sepulveda FNP [address] [place], [place] [id number] Referral Social History Tobacco Use Types Packs/Day [...] AM EDT Tc from pt requesting a Pattern Chart Writer referral to have gallbladder removed. Pt had an ED visit2 years ago where she was diagnosed with gallstones, from there pt was referred to gastro to have agallbladder removal but pt hesitated to follow through. Due to some recent concerns pt is now re considering gallbladder removal. If any question please contact pt at [phone]. documented in this encounter Plan of Treatment Upcoming Encounters Date Type Department Care Team (Late st Contact Info) Description 08/02/2025 1:00 PM EST Clinical Support [facility] DI[facility]ES[facility]N [address] [place], [place] [phone] Melony Herrera RD [address] [place] [address] 08/21/2025 11:30 AM EST Office Visit [facility] MED & PEDS [address] [place] [address] Castillo Calles MD 505 [place] [address] 10/02/2025 11:00 AM EST Medication Management [facility] MED & PEDS [address] [place] [address] Lisa Carney PharmD [address] [place] [address] 10/12/2025 2:30 PM EST Office Visit [facility] MED [facility] PEDS [address] [place] [address] Irish Sepulveda FNP [address] [place] [address] documented as of this encounter Visit Diagnoses Not on filedocumented in this encounter Additional Health Concerns Assessment Noted Time PHQ-9 Depression Total Score: 10 023 11:21 AM EST documented as of this encounter Care Teams Tinning Equipment Tender Relationship Specialty Start Date End Date Irish Sepulveda FNP [address] [place] [address] PCP - General Family Medicine 11/12/21 Lisa Carney, PharmD [address] [place] [address] Pharmacist Pharmacy 05/28/25 documented as of this encounter
--- OUTSIDE RECORDS SUMMARY | 2025-07-30 13:20 | XMS_ITS | Encounter Summary ---
Author Organization [employer] Address [address] [place] [address] 7 [place] [address] Care Team Providers Care Gauge And Weigh Machine Adjuster Name Role Phone Irish Sepulveda Primary Care Provider [phone] Lisa Carney PharmD Unavailable [phone] Reason for Visit * Reason Onset Date Comments Med Refill 01/31/2025 Encounter Details Date Type Department Care Team ([facility] st Contact Info) Description 01/31/2025 Telephone [facility] MEDICINE [address] [place] [address] Irish Sepulveda FNP [address] [place], [place] [phone] Med Refill Social History Tobacco Use Types [...] 300 MG capsule To be sent to: [facility] - [place], [place] - [address] documented in this encounter Plan of Treatment Upcoming Encounters Date Type Department Care Team (Late st Contact Info) Description 08/02/2025 1:00 PM EST Clinical Support [facility] [address] [place] [address] [place] [address] 08/21/2025 11:30 AM EST Office Visit [facility] [address] [place] [address] Castillo Calles MD [address] [place] [address] 10/02/2025 11:00 AM EST Medication Management [facility] [address] [place] [address] Lisa Carney PharmD [address] [place] [address] 10/12/2025 2:30 PM EST Office Visit [facility] [address] [place] [address] Irish Sepulveda FNP [address] [place] [address] documented as of this encounter Visit Diagnoses Not on filedocumented in this encounter Additional Health Concerns Assessment Noted Time PHQ-9 Depression Total Score: 14 024 1:30 PM EDT documented as of this encounter Care Teams Gauge And Weigh Machine Adjuster Relationship Specialty Start Date End Date Irish Sepulveda FNP [address] [place] [address] PCP - General Family Medicine 11/12/21 Lisa Carney PharmD [address] [place] [address] Pharmacist Pharmacy 05/28/25 documented as of this encounter
--- OUTSIDE RECORDS SUMMARY | 2025-07-30 13:20 | XMS_ITS | Encounter Summary ---
Author Organization [employer] Address [address] [place] [address] Care Team Providers Care Slag Skimmer Name Role Phone Irish Sepulveda Primary Care Provider Lisa Carney PharmD Unavailable [phone] Reason for Visit * Reason Comments Med Refill Encounter Details Date Type Department Care Team (Late st Contact Info) Description 11/30/2022 Refill [facility] MEDICINE [address] [place] [address] Irish Sepulveda FNP [address] [place] [address] Gastroesophageal reflux disease, unspecified whether esophagitis present [...] Description 08/02/2025 1:00 PM EST Clinical Support [facility] DI[facility] [address] [place] [address] Melony Herrera, KORINA [address] [place] [address] 08/21/2025 11:30 AM EST Office Visit [facility] MED & PEDS [address] [place] [address] Castillo Calles MD 505 [place] [address] 10/02/2025 11:00 AM EST Medication Management [facility] MED & PEDS [address] [place] [address] Lisa Carney PharmD [address] [place] [address] 10/12/2025 2:30 PM EST Office Visit [facility] MED & PEDS [address] [place] [address] Irish Sepulveda FNP [address] [place] [address] documented as of this encounter Visit Diagnoses Diagnosis Gastroesophageal reflux disease, unspecified whether esophagitis present documented in this encounter Care Teams Slag Skimmer Relationship Specialty Start Date End Date Irish Sepulveda FNP [address] [place] [address] PCP - General Family Medicine 11/12/21 Lisa Carney PharmD [address] [place] [address] Pharmacist Pharmacy 05/28/25 documented as of this encounter
--- OUTSIDE RECORDS SUMMARY | 2025-07-30 13:20 | XMS_ITS | Encounter Summary ---
Author Organization [employer] Address [address] [place] [address] Care Team Providers Care Board Mill Supervisor Name Role Phone Irish Sepulveda JANI Primary Care Provider [phone] Lisa Carney PharmD Unavailable [phone] Encounter Details Date Type Department Care Team (Late st Contact Info) Description 03/11/2023 Orders Only [facility] MEDICINE [address] [place] [address] Marimar Bae LPN Social History Tobacco Use [...] Clinical Support [facility] [address] [place] [address] [place] [address] 08/21/2025 11:30 AM EST Office Visit [facility] [address] [place] [address] Castillo Calles MD [address] [place] [address] 10/02/2025 11:00 AM EST Medication Management [facility] [address] [place] [address] Lisa Carney PharmD [address] [place] [address] 10/12/2025 2:30 PM EST Office Visit [facility] [address] [place] [address] Irish Sepulveda FNP [address] [place] [address] documented as of this encounter Visit Diagnoses Not on filedocumented in this encounter Care Teams Board Mill Supervisor Relationship Specialty Start Date End Date Irish Sepulveda FNP [address] [place] [address] PCP - General Family Medicine 11/12/21 Lisa Carney, Stephanie [address] [place] [address] Pharmacist Pharmacy 05/28/25 documented as of this encounter
--- OUTSIDE RECORDS SUMMARY | 2025-07-30 13:20 | XMS_ITS | Encounter Summary ---
Author Organization [employer] Address [address] [place] [address] [address] [place] [address] Care Team Providers Care Basket Bottom Machine Operator Name Role Phone Irish Sepulveda Primary Care Provider [phone] Lisa Carney PharmD Unavailable [phone] Encounter Details Date Type Department Care Team (Late st Contact Info) Description 12/22/2023 Orders Only [facility] MED & PEDS [address] [place], [place] [phone] Irish Sepulveda FNP [address] [place] [address] Gastroesophageal reflux disease, unspecified whether esophagitis present [...] Description 08/02/2025 1:00 PM EST Clinical Support [facility] DI[facility]N [address] [place] [address] Melony Herrera, KORINA [address] [place] [address] 08/21/2025 11:30 AM EST Office Visit [facility] MED & PEDS [address] [place] [address] Castillo Calles MD [address] [place] [address] 10/02/2025 11:00 AM EST Medication Management [facility] MED & PEDS [address] [place] [address] Lsia Carney, PharmD [address] [place] [address] 10/12/2025 2:30 PM EST Office Visit [facility] MED & PEDS [address] [place] [address] Irish Sepulveda FNP [address] [place] [address] documented as of this encounter Visit Diagnoses Diagnosis Gastroesophageal reflux disease, unspecified whether esophagitis present documented in this encounter Additional Health Concerns Assessment Noted Time PHQ-9 Depression Total Score: 10 023 11:21 AM EST documented as of this encounter Care Teams Basket Bottom Machine Operator Relationship Specialty Start Date End Date Irish Sepulveda FNP [address] [place] [address] PCP - General Family Medicine 11/12/21 Lisa Carney PharmD [address] [place] [address] Pharmacist Pharmacy 05/28/25 documented as of this encounter
--- OUTSIDE RECORDS SUMMARY | 2025-07-30 13:20 | XMS_ITS | Clinical Summary ---
Author Organization [employer] Address [address] [place] [address] 7 [place] [address] Care Team Providers Care Plastic Welding Machine Operator Name Role Phone AlejandraIrish grimes JANI Primary Care Provider [phone] Lisa Carney PharmD Unavailable [phone] Allergies Active Allergy Reactions Criticality Noted Date Comments Acetaminophen Hives 12/10/2016 Acetaminophen-Codeine 02/10/2023 Codeine Hives 12/10/2016 Heparin Hives 12/10/2016 Other reaction(s): itching, hives Medications * This document contains information received from the source organization and may not represent a complete record from that organization. albuterol (Ventolin HFA) 108 (90 Base) MCG/ACT inhaler inhale 2 puff by inhalation route every 4 - 6 hours as needed 18 g 11 023 Active amphetamine-de xtroamphetamin e XR (Adderall XR) [...] each day 90 tablet 3 025 Active gabapentin (Neurontin) 300 MG capsuleIndicat ions:Mood [...] complication, with long-term current use of insulin ([facility]) Use to test blood sugar 1-3 times daily 100 each 11 025 2025 Active Lancets miscIndication s:Type 2 diabetes mellitus without complication, with long-term current use of insulin ([facility]) Use to test blood sugar 1-3 times daily 100 each 11 Active Alcohol Swabs 70 % padsIndication s:Type 2 diabetes mellitus without complication, with long-term current use of insulin ([facility]) Use up to 4 times per day (test BG and inject insulin) 100 each 11 Active insulin glargine (Lantus SoloStar) 100 UNIT/ML penIndications :Type 2 diabetes mellitus without complication, with long-term current use of insulin ([facility]) Inject 10 units subcutaneously every night. Increase by 2 units every 3 days if FBG > 130mg/dl, max 20 units per day 15 mL 2 Active pen needle 32G x 4 mm miscIndication s:Type 2 diabetes mellitus without complication, with long-term current use of insulin ([facility]) Use once daily 100 each 3 025 2025 Active Continuous Glucose Sensor (FreeStyle Erich 3 Plus Sensor) miscIndication s:Type 2 diabetes mellitus without complication, with long-term current use of insulin ([facility]) 1 each every 15 days. 2 each 025 Active glucose blood (FreeStyle Precision Elvin Test) test stripIndicatio ns:Type 2 diabetes mellitus without complication, with long-term current use of insulin ([facility]) Test blood sugar up to 3 times daily as directed 100 each 025 Active Lancet Devices (Lancing Device) miscIndication s:Type 2 diabetes mellitus without complication, with long-term current use of insulin ([facility]) Use as directed 1 each 025 Active Blood Glucose Monitoring Suppl (FreeStyle Hall Lite) w/Device kitIndications :Type 2 diabetes mellitus without complication, with long-term current use of insulin ([facility]) Use to test blood sugar 1-3 times daily 1 kit Active empagliflozin (Jardiance) 10 MGIndications: Type 2 diabetes mellitus without complication, with long-term current use of insulin ([facility]) Take 1 tablet (10 mg) by mouth Once per day. 30 tablet 2 025 Active lurasidone (Latuda) 60 MG tablet Take 1 tablet (60 mg) by mouth in the morning. 90 tablet 025 Active propranolol (Inderal) 10 MG tablet Take 1 tablet (10 mg) by mouth Once per day. 90 tablet 025 Active Sublocade 100 MG/0.5ML injection 025 Active QUEtiapine (SEROquel) 100 MG tabletIndicati ons:Depressive disorder TAKE 1 TABLET BY MOUTH EVERY DAY 90 tablet 025 Active Sublocade 300 MG/1.5ML injection 023 2024 Discontinued(M ed list cleanup (will not trigger notification to Pharmacy)) propranolol (Inderal) 10 MG tablet 2024 Discontinued(R eorder (will not trigger notification to Pharmacy)) lurasidone (Latuda) 60 MG tablet Take 1 tablet (60 mg) by mouth in the morning. 90 tablet 025 2024 Discontinued(R eorder (will not trigger notification to Pharmacy)) QUEtiapine (SEROquel) 100 MG tabletIndicati ons:Depressive disorder TAKE 1 TABLET BY MOUTH EVERY DAY 90 tablet 025 2024 Discontinued(R eorder (will not trigger notification to Pharmacy)) doxycycline (Vibramycin) 100 MG capsuleIndicat ions:Nodule of groin Take 1 capsule (100 mg) by mouth 2 times daily for 21 days. Take with at least 8 ounces (large glass) of water, do not lie down for 30 minutes after 42 capsule 025 2024 Active Problems Problem Noted Date Diagnosed Date Gallstone 05/13/2025 Overview (05/13/2025): Sep 2024: single gallstone identified on abd US Biliary dyskinesia 05/13/2025 Overview (05/13/2025): Following with [facility] GI - АЛЕКСАНДР Nguyen Experiences sudden and severe onset of nausea & vomiting x multiple years. Associated with eructation that smells of sulfur Cont with pantoprazole, zofran PRN 12/22/24: NM hepatobiliary w/ pharm. No significant gallbladder emptying is seen after CCK administration, consistent with biliary dyskinesia. 12/28/2024: NM gastric emptying study. Impression-mildly delayed gastric emptying at 4 hours. January 2025: consult with [facility] Surgery - Dr. Rucker. Plan for consideration of cholecystectomy 02/16/25: Barium swallow completed 03/09/2025: CT abdomen pelvis - No acute findings. Mild to moderate stool burden in colon. Assessment & Plan (05/13/2025 5:22 PM EDT): Cont with Cream, Miralax, pantoprazole, reglan TID Plan for lap cholecystectomy after BG well controlled Type 2 diabetes mellitus wit hout complication, with long-term current use of insulin 05/13/2025 Overview (07/02/2025): Lab Results Component Value Date HGBA1C 7.2 (A) 07/02/2025 HGBA1C 11.0 (H) 04/20/2025 HGBA1C 8.4 (H) 09/11/2024 Lab Results Component Value Date TRIG 158 (H) 04/20/2025 CHOL 230 (H) 04/20/2025 LDLCHOLCAL 167 (H) 04/20/2025 HDL 32 (L) 04/20/2025 Medications: Lantus 16 units nightly Metformin 1000mg BID Jardiance 10mg daily Lifestyle: Encouraged regular movement and aerobic exercise for improved glycemic control Encouraged daily foot checks Encouraged lean protein snacks and to avoid foods high in sugar and simple carbohydrates Treatment Goals: A1c goal: <7% FBG goal: <130 2 hour post prandial goal: <180 Assessment & Plan (07/02/2025 1:17 PM EDT): - Congratulated on significant improvement in A1c value, may now qualify for GI surgery. Continue with current med regimen and follow up with ticket chopper assembler and [facility] program as scheduled. - To discuss at following appointment: statin and ARB initiation Assessment & Plan (05/13/2025 5:29 PM EDT): Diagnosed: Apr 2025. A1c 11%. Initiated on metformin 500mg BID. Today, reviewed basic education and pathology of T2DM Plan: Increase to metformin 1000mg BID Start Trulicity 0.75mg subcutaneous weekly. Reviewed med safety and SE. No contraindications. Referral to [facility] Education regarding carb monitoring and low-carb diet reviewed Shared decision making to defer checking home BG readings at this time given low risk of hypoglycemia with meds and no insulin titration. Plan to further discuss next appt. Recommended review of [employer] website Statin & OLINDA/ARB: discuss [...] areas of decreased echogenicity Assessment & Plan (07/02/2025 1:13 PM EDT): - abdominal US w/ elastography scheduled for July 2025 Assessment & Plan (09/29/2024 12:37 PM EST): [...] through PCP, scheduled for initial consult with [facility] Psych POSTDOCTORAL RESEARCH ASSOCIATE No acute concerns, mental health stable Assessment [...] acute concerns, mental health stable Referral to [facility] BH team for BE with referral to psych prescriber - possibly telehealth 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 Assessment & Plan (12/28/2023 7:17 PM EDT): Diffuse enlargement, denies symptoms, Labs and ultrasound ordered Cigarette smoker 08/19/2023 Overview (08/19/2023): -Cigg/day: 5 -Encouraged smoking cessation resources such as pharmacomtherapy, [facility] smoking cessation group, and [facility] pharmacy smoking cessation clinic -Currently following with Sheron for assistance with smoking cessation Assessment & Plan (12/28/2023 7:17 PM EDT): Actively cutting back, has patches, declines further supports today Healthcare maintenance 07/30/2023 Assessment & Plan (07/02/2025 1:18 PM EDT): -Optometry: referral to [facility] Eye Care previously placed -Pap: NILM, HPV neg on 08/17/23. Next due: 2027 -PE: due -Dental: referral to [facility] Dental placed 07/02/25 Assessment & Plan (09/17/2024 9:29 PM EST): -Optometry: referral to [facility] Eye Care previously placed -Pap: NILM, HPV neg on 08/17/23. Next due: 2027 -PE: due - Routine labs ordered today including asymptomatic STI screening - Refilled POP for contraception. Reviewed med safety and SE Assessment & Plan (07/31/2023 11:09 AM EST): -Optometry: referral to [facility] Eye Care previously placed -Pap: Pt reports it has been > 5 years since last pap. Missed last pap appt, scheduled with [facility] CNM -STI: previously ordered, pending -Dental: discuss at follow up -Vaccines: flu administered today Attention deficit hyperactiv ity disorder (ADHD), predominantly inattentive type 02/10/2023 Class 1 obesity 02/10/2023 Intermittent asthma 11/13/2021 Overview (02/10/2023): given plan,advised annual flu vacc Posttraumatic stress disorder 11/13/2021 Neuropathic pain 08/26/2017 Gastroesophageal reflux disease 07/30/2017 Overview (07/02/2025): Experiencing residual symptoms despite tx PPI - pantoprazole 40mg daily (sometimes BID) Established with [facility] GI - HIDE AND SKIN CLASSER Patrick Initial consult scheduled: November: initiated famotidine PRN breakthrough symptoms Assessment & Plan (09/17/2024 9:22 PM EST): [...] Encounters Date Type Department Care Team Description 07/17/2025 Refill [facility] [address] [place] [address] Irish Sepulveda FNP Depressive disorder 07/16/2025 Travel 07/09/2025 Refill [facility] [address] [place] [address] Irish Sepulveda FNP 07/05/2025 10:00 AM EDT Nutrition [facility] [address] [place] [address] Type 2 diabetes mellitus with hyperglycemia, without long-term current use of insulin (HCC) 07/05/2025 Travel 07/02/2025 11:15 AM EDT Office Visit [facility] [address] [place] [address] Irish Sepulveda FNP Type 2 diabetes mellitus without complication, with long-term current use of insulin (HCC) (Primary Dx); Healthcare maintenance; Encounter for immunization; Gastroesophageal reflux disease, unspecified whether esophagitis present; Transaminitis; Nodule of groin; Dietary counseling; Exercise counseling 07/02/2025 Travel 06/29/2025 Telephone [facility] [address] [place] [address] Irish Sepulveda FNP Chart Prep 06/22/2025 Travel 06/19/2025 Telephone [facility] [address] [place] [address] Irish Sepulveda FNP Appointment Request 06/19/2025 Travel 06/18/2025 Telephone [facility] [address] [place] [phone] Nutrition referral 06/14/2025 Refill [facility] [address] [place] [address] Irish Sepulveda FNP 06/12/2025 Orders Only [facility] [address] [place] [address] Irish Sepulveda FNP Transaminitis (Primary Dx) 06/11/2025 Telephone [facility] [address] [place] [phone] Irish Sepulveda FNP Call Back Request 06/06/2025 Telephone [facility] [address] [place] [address] Irish Sepulveda FNP Prior Authorization 06/06/2025 Telephone [facility] [address] [place] [address] Irish Sepulveda FNP Referral 06/05/2025 Travel 06/04/2025 Telephone [facility] [address] [place] [address] Irish Sepulveda FNP Medication Question; Appointment Request 05/31/2025 Telephone [facility] [address] [place], [place] [phone] Juan C Mena PHQ-9 Follow up 05/28/2025 Travel 05/14/2025 Refill [facility] [address] [place] [address] Irish Sepulveda FNP 05/08/2025 Telephone [facility] [address] [place] [address] Irish Sepulveda FNP 05/07/2025 9:15 AM EDT Office Visit [facility] [address] [place], [place] [phone] Irish Sepulveda FNP Type 2 diabetes mellitus without complication, without long-term current use of insulin (CMS/[facility]) (Primary Dx); Healthcare maintenance; Mood disorder (CMS/HCC); Other atopic dermatitis; Hidradenitis suppurativa; Transaminitis; Calculus of gallbladder without cholecystitis without obstruction; Biliary dyskinesia 05/07/2025 Travel 05/04/2025 Refill [facility] [address] [place] [address] Irish Sepulveda FNP Mood disorder (CMS/HCC) 05/04/2025 Telephone [facility] [address] [place], [place] [phone] Irish Sepulveda FNP chart prep from Last 3 Months Immunizations Immunization Administration Dates Next Due Influenza Injectable Quadriv alant Preservative Free IIV4 MDCK 09/06/2020,07/14/2017 Influenza Whole 10/21/2010 Influenza injectable quadriv alent IIV4 with preservative 05/13/2019 Influenza injectable quadriv alent preservative free 07/30/2023,07/15/2022,06/07/2016 Influenza, seasonal, injecta ble, preservative free 07/02/2025,09/29/2024 Pneumococcal Conjugate PCV 20 08/16/2023 Pneumococcal Polysaccharide [...] Sign Reading Time Taken Comments Blood Pressure 114/74 07/02/2025 12:10 PM EDT Pulse 50 07/02/2025 12:10 PM EDT Temperature 36.7 C (98.1 F) 07/02/2025 12:10 PM EDT Respiratory Rate 12 07/02/2025 12:10 PM EDT Oxygen Saturation 98% 07/02/2025 12:10 PM EDT Inhaled Oxygen Concentration - - Weight 81.9 kg (180 lb 9.6 oz) 07/10/2025 11:33 AM EDT Height 157.5 cm (5' 2 ) 07/10/2025 11:33 AM EDT Body Mass Index 33.03 07/10/2025 11:33 AM EDT Plan of Treatment Upcoming Encounters Date Type Department Care Team (Late st Contact Info) Description 08/02/2025 1:00 PM EST Clinical Support [facility] [address] [place] [address] Melony Herrera, RD [address] [place] [address] 08/21/2025 11:30 AM EST Office Visit [facility] [address] [place] [address] Castillo Calles MD [address] [place] [address] 10/02/2025 11:00 AM EST Medication Management [facility] [address] [place] [address] Lisa Carney, PharmD [address] [place] [address] 10/12/2025 2:30 PM EST Office Visit [facility] [address] [place] [address] Irish Sepulveda FNP [address] [place] [address] Health Maintenance Due Date Last Done Comments Dental Oral Exam 1985 Dental Prophylaxis 1985 Dental X-Ray: Full Mouth 1985 Diabetes: Foot Exam 1995 Eye Exam 1995 Alcohol/Substance Use Screening 1997 HPV Vaccines (1 - 3-dose series) 01/11/2000 Diabetes: Urine Protein Screening 01/11/2004 Hepatitis A Vaccines (1 of 2 - Risk 2-dose series) 01/11/2004 Dental X-Ray: Bitewings 08/24/2024 08/23/2023 Mammogram 2025 COVID-19 Vaccine (3 - season) 2025 12/26/2021, 12/03/2021 Diabetes: Hemoglobin A1C 10/02/2025 025, 04/20/2025, 09/11/2024 Family Planning (PISQ) 10/02/2025 10/02/2024 Depression Monitoring [...] HIV Screening Completed 09/11/2024 Influenza Vaccine Completed 07/02/2025, , 07/30/2023, Additional history exists HIB Vaccines Aged Out [...] Name Priority Date/Time Associated Diagnosis Comments POCT GLYCATED HEMOGLOBIN, TOTAL Routine 07/02/2025 12:13 PM EDT Type 2 diabetes mellitus without complication, with long-term current use of insulin (HCC) POCT GLUCOSE Routine 07/02/2025 12:12 PM EDT Type 2 diabetes mellitus without complication, with long-term current use of insulin (HCC) POCT GLUCOSE Routine 05/07/2025 9:32 AM EDT Healthcare maintenance LIPID PANEL, STANDARD Routine 04/20/2025 12:25 PM [...] to Health Maintenance Results * (ABNORMAL) POCT A1c (07/02/2025 12:13 PM EDT) Hemoglobin A1C 7.2(A) 4.0 - 5.7 % QC Media Lot # Comment:[id number] Lot# Expiration Date Comment:01/11/2027 Blood 07/02/2025 12:1 3 PM EDT us Irish Sepulveda MANAGER STATISTICAL PROGRAMMING POINT OF CARE TEST ENTER/EDIT ORDERABLES Final Result * POCT glucose manually resulted (07/02/2025 12:12 PM EDT) Only the most recent of2 resultswithin the time period is included. Glucose Blood, POC 130 60 - 200 mg/dL QC Media Lot # Comment:[id number] Lot# Expiration Date Comment:10/28/2025 Blood Capillary blood specimen / Unknown 07/02/2025 12:12 PM EDT Irish Sepulveda [facility] POINT OF CARE TEST ENTER/EDIT ORDERABLES Final Result * (ABNORMAL) Lipid Panel, Standard (04/20/2025 12:25 PM EDT) Triglycerides 158(H) <150 mg/dL [facility] Comment:Desirable Triglyceri de: less than 150 mg/dLBorderline High Triglyceride 150-199 mg/dLHigh Triglyceride: 200-499 mg/dLVery High Triglyceride: greater than or equal to 5OO mg/dL Cholesterol 230(H) <200 mg/dL [facility] Comment:Desirable Cholestero l: less than 200 mg/dLBorderline High Cholesterol: 200-239 mg/dLHigh Cholesterol: greater than 239 mg/dL LDL Cholesterol Calculated 167(H) <100 mg/dL [facility] Comment:Desirable LDL: less than 100 mg/dLNear Optimal/Above Optimal LDL: 110- 129 mg/dLBorderline High LDL: 130-159 mg/dLHigh LDL: 160-189 mg/dLVery High LDL: greater than or equal to 190 mg/dL HDL Cholesterol 32(L) >40 mg/dL [facility] Comment:Desirable HDL: great er than 40 mg/dL Note: This HDL assay may give artificially low results in patients with liver disease. Blood Venous blood specimen / Unknown 04/20/2025 12:25 PM EDT 04/20/2025 12:25 PM EDT Irish Sepulveda [facility] BLOOD ORDERABLES Final Res ult [facility] [address] [place] [address] [phone] * HIV-1/2 Antigen and Antibodies, Fourth Generation, with Reflexes (09/11/2024 11:53 AM EST) HIV AB/AG Nonreactive Nonreactive [facility] Comment:HIV-1 p24 Ag and/or HIV-1/HIV-2 Ab not detected.A test result that is nonreactive does not exclude thepossibility of exposure to or infection with HIV-1 and/orHIV-2. Nonreactive results in this assay for individualswith prior exposure to HIV-1 and/or HIV-2 may be due toantigen and antibody levels that are below the limit ofdetection of this assay.The Biomonde HIV Ag/Ab Combo assay result andsupplemental assay results should be interpreted inconjunction with the patient's clinical presentation,history and other laboratory results. If the results areinconsistent with clinical evidence, additional testing issuggested to confirm the result. Blood Venous blood specimen / Unknown 09/11/2024 11:53 AM EST 09/11/2024 3:01 PM EST us Irish Sepulveda [facility] BLOOD ORDERABLES Final Res ult [facility] [address] [place] [phone] * HPV mRNA E6/E7 w/Reflex to HPV Genotypes 16, 18/45 (08/17/2023 1:41 PM EST) HPV nRNA E6/E7 Not Detected Not Detected [facility] Comment:Methodology: Transcr iption-Mediated AmplificationThis assay detects E6/E7 viral messenger RNA (mRNA) from 14high-risk HPV types (16,18,31,33,35,39,45,51,52,56,58,59,66,68).Cervical sources are required for HPV testing.If a vaginal source from a patient who has had atotal hysterectomy with removal of cervix wassubmitted, please contact the testing laboratoryfor alternative testing options.For additional information, please refer tohttp://education.Object Matrix/faq/KEO520l3(This link if provided for information/educational purposes only.)THIS TEST WAS PERFORMED AT:[employer] [place] [id number] M LEVY MD HPV mRNA E6/E7 TNP [facility] HPV 16 RNA TNP [facility] HPV 18/45 RNA TNP [facility] 08/17/2023 1:41 PM EST 08/18/2023 8:00 AM EST us Wyatt Baumann [facility] CYTOLOGY ORDERABLES F inal Result [facility] [address] [place] [address] [phone] * Pap Smear (08/17/2023 1:41 PM EST) 08/17/2023 1:41 PM EST 08/18/2023 8:00 AM EST Narrative [facility] - 08/26/2023 4:13 PM EST ----- ------- Name: Jean-Pauldenisacatarina Age/Sex: 38/F : 1985 Unit#: [id number] Attend Dr: WYATT BAUMANN [facility] Re08/17/23 Status: DEP REF Location: HO.CHCLNP Disch: ----- ------- SPEC : [id number] RECD: 08/18/23 STATUS: RODOLFO SANCHEZ NUM: [id number] KARENA: 08/17/[address] [facility] [address]: WYATT BAUMANN CNM ENTERED: 08/18/23 SP [...] 59, 66, 68) HPV testing performed by [employer], [place], [place]. See reference laboratory portion of the EMR for entire report. Clinical Information LMP: Amenorrheic on OCP Previous PAP test: 7 yrs, WNL Material Received ThinPrep-Cervical ----- ------- Signed (signature on file) SUKHI Prince (ASCP) 08/26/23 1613 ----- ------- END OF REPORT Wyatt Baumann CNM LAB CYTOLOGY ORDERABLES F inal Result [facility] [address] [place] [phone] from Last 3 Months or Most Recently Relevant to Health Maintenance Insurance [facility] C3 DENTAL-[facility] MEDICAID STAND ADULT Care Teams Plastic Welding Machine Operator Relationship Specialty Start Date End Date Irish Sepulveda FNP [address] [place] [address] PCP - General Family Medicine 11/12/21 Lisa Carney, JanetD [address] [place] [address] Pharmacist Pharmacy 05/28/25
--- OUTSIDE RECORDS SUMMARY | 2025-07-30 13:20 | XMS_ITS | Encounter Summary ---
Author Organization [employer] Address [address] [place] [address] 7 [place] [address] Care Team Providers Care Tool Marker Name Role Phone Irish Sepulveda Primary Care Provider [phone] Lisa Carney PharmD Unavailable [phone] Reason for Visit * Reason Onset Date Comments Appointment Request 06/19/2025 Encounter Details Date Type Department Care Team ([facility] Contact Info) Description 06/19/2025 Telephone [facility] [address] [place], [place] [phone] Irish Sepulveda FNP [address] [place], [place] [phone] Appointment Request Social History Tobacco Use Types [...] Miscellaneous Notes * Telephone Encounter - Melody Yousif - 06/19/2025 2:37 PM EDT Tc from pt requesting a call back to discuss scheduling apt to teach her how to use glucose meter Contact pt at [phone] documented in this encounter Plan of Treatment Upcoming Encounters Date Type Department Care Team (Late st Contact Info) Description 08/02/2025 1:00 PM EST Clinical Support [facility] [address] [place] [address] Melony Herrera, RD [address] [place] [address] 08/21/2025 11:30 AM EST Office Visit [facility] PED[facility] [address] [place] [address] Castillo Calles MD [address] [place] [address] 10/02/2025 11:00 AM EST Medication Management [facility] [address] [place] [address] Lisa Carney PharmD [address] [place] [address] 10/12/2025 2:30 PM EST Office Visit [facility] PED[facility] [address] [place] [address] Irish Sepulveda FNP [address] [place] [address] documented as of this encounter Visit Diagnoses Not on filedocumented in this encounter Additional Health Concerns Assessment Noted Time PHQ-9 Depression Total Score: 21 025 9:59 AM EDT documented as of this encounter Care Teams Tool Marker Relationship Specialty Start Date End Date Irish Sepulveda FNP [address] [place] [address] PCP - General Family Medicine 11/12/21 Lisa Carney, PharmD [address] [place] [address] Pharmacist Pharmacy 05/28/25 documented as of this encounter
--- OUTSIDE RECORDS SUMMARY | 2025-07-30 13:20 | XMS_ITS | Encounter Summary ---
Author Organization [employer] Address [address] [place] [address] 7 [place] [address] Care Team Providers Care Business Account Leader Name Role Phone Irish Sepulveda Primary Care Provider [phone] Lisa Carney PharmD Unavailable [phone] Reason for Visit * Reason Onset Date Comments US Order 06/20/2024 Encounter Details Date Type Department Care Team ([facility] st Contact Info) Description 06/20/2024 Telephone [facility] MEDICINE [address] [place] [address] Irish Sepulveda FNP [address] [place] [address] US Order Social History Tobacco Use Types [...] Description 08/02/2025 1:00 PM EST Clinical Support [facility] DIABETES/NTRN 505 [place] [address] Melony Herrera, RD 230 [place] [address] 08/21/2025 11:30 AM EST Office Visit [facility] MED & PEDS 505 [place] [address] Castillo Calles MD 505 [place] [address] 10/02/2025 11:00 AM EST Medication Management [facility] MED & PEDS 505 [place] [address] Lisa Carney PharmD 230 [place] [address] 10/12/2025 2:30 PM EST Office Visit [facility] MED & PEDS 505 [place] [address] Irish Sepulveda FNP 505 [place] [address] documented as of this encounter Visit Diagnoses Not on filedocumented in this encounter Additional Health Concerns Assessment Noted Time PHQ-9 Depression Total Score: 10 023 11:21 AM EST documented as of this encounter Care Teams Business Account Leader Relationship Specialty Start Date End Date Irish Sepulveda FNP [address] [place] [address] PCP - General Family Medicine 11/12/21 Lisa Carney, PharmD [address] [place] [address] Pharmacist Pharmacy 05/28/25 documented as of this encounter
--- OUTSIDE RECORDS SUMMARY | 2025-07-30 13:20 | XMS_ITS | Encounter Summary ---
Author Organization [employer] Address [address] [place] [address] 7 [place] [address] Care Team Providers Care Supervisor Forming And Tempering Name Role Phone Irish Sepulveda Primary Care Provider Lisa Carney PharmD Unavailable [phone] Reason for Visit * Reason Comments Med Refill Encounter Details Date Type Department Care Team ([facility] st Contact Info) Description 06/14/2025 Refill [facility] MEDICINE 230 [place] [address] Irish Sepulveda FNP [address] [place] [address] Social History Tobacco Use Types Packs/Day Years [...] Description 08/02/2025 1:00 PM EST Clinical Support [facility] DIABETES/NTRN 505 [place] [address] 230 [place] [address] 08/21/2025 11:30 AM EST Office Visit [facility] MED & PEDS [address] [place] [address] Castillo Calles MD 505 [place] [address] 10/02/2025 11:00 AM EST Medication Management [facility] MED & PEDS 505 [place] [address] Lisa Carney, PharmD 230 [place] [address] 10/12/2025 2:30 PM EST Office [facility] MED & PEDS [address] [place] [address] Irish Sepulveda FNP 505 [place] [address] documented as of this encounter Visit Diagnoses Not on filedocumented in this encounter Additional Health Concerns Assessment Noted Time PHQ-9 Depression Total Score: 21 025 9:59 AM EDT documented as of this encounter Care Teams Supervisor Forming And Tempering Relationship Specialty Start Date End Date Irish Sepulveda FNP 230 [place] [address] PCP - General Family Medicine 11/12/21 Lisa Carney PharmD 230 [place] [address] Pharmacist Pharmacy 05/28/25 documented as of this encounter
--- OUTSIDE RECORDS SUMMARY | 2025-07-30 13:20 | XMS_ITS | Encounter Summary ---
Author Organization [employer] Address [address] [place] [address] 7 [place] [address] Care Team Providers Care Casino Cage Manager Name Role Phone Irish Sepulveda Primary Care Provider [phone] Lisa Carney PharmD Unavailable [phone] Reason for Visit * Reason Onset Date Comments Appointment Request 05/05/2024 Encounter Details Date Type Department Care Team ([facility] st Contact Info) Description 05/05/2024 Telephone [facility] MEDICINE [address] [place] [address] Irish Sepulveda FNP [address] [place], [place] [phone] Appointment Request Social History Tobacco Use Types [...] pt, left message for pt to call [facility] office. * Telephone Encounter - Teddy Roque - 05/05/2024 9:50 AM EDT Tc from pt requesting to reschedule todays sick onsite visit. Please contact pt at [phone]. documented in this encounter Plan of Treatment Upcoming Encounters Date Type Department Care Team (Late st Contact Info) Description 08/02/2025 1:00 PM EST Clinical Support [facility] DIABETES/NTRN 505 [place], [place] [phone] Melony Herrera, RD [address] [place] [address] 08/21/2025 11:30 AM EST Office Visit [facility] MED & PEDS 505 [place] [address] Castillo Calles MD 505 [place] [address] 10/02/2025 11:00 AM EST Medication Management [facility] MED & PEDS 505 [place] [address] Lisa Carney, Stephanie 230 [place] [address] 10/12/2025 2:30 PM EST Office Visit [facility] MED & PEDS [address] [place] [address] Irish Sepulveda FNP [address] [place] [address] documented as of this encounter Visit Diagnoses Not on filedocumented in this encounter Additional Health Concerns Assessment Noted Time PHQ-9 Depression Total Score: 10 023 11:21 AM EST documented as of this encounter Care Teams Casino Cage Manager Relationship Specialty Start Date End Date Irish Sepulveda FNP [address] [place] [address] PCP - General Family Medicine 11/12/21 Lisa Carney, Stephanie [address] [place] [address] Pharmacist Pharmacy 05/28/25 documented as of this encounter
--- OUTSIDE RECORDS SUMMARY | 2025-07-30 13:20 | XMS_ITS | Encounter Summary ---
Author Organization [employer] Address [address] [place] [address] 7 [place] [address] Care Team Providers Care Kennel Manager Name Role Phone Irish Sepulveda Primary Care Provider [phone] Lisa Carney PharmD Unavailable [phone] Reason for Visit * Reason Onset Date Comments US Order 06/21/2024 Encounter Details Date Type Department Care Team ([facility] st Contact Info) Description 06/21/2024 Telephone [facility] MEDICINE 230 [place] [address] Irish Sepulveda FNP [address] [place] [address] US Order Social History Tobacco Use Types [...] any questions you can contact Mansi at [phone]. * Telephone Encounter - Teddy Roque - 06/21/2024 10:03 AM EDT Tc from Edilberto with [facility] calling in regards US order of the abdomen stating it is missing pcp signature. They're requesting for a order to be resent with signature. If any questions you can contact Edilberto at [phone]. documented in this encounter Plan of Treatment Upcoming Encounters Date Type Department Care Team (Late st Contact Info) Description 08/02/2025 1:00 PM EST Clinical Support [facility] DIABETES/NTRN 505 [facility] [place] [address] [place] [address] 08/21/2025 11:30 AM EST Office Visit [facility] MED & PEDS 505 [place] [address] Castillo Calles MD 505 [place] [address] 10/02/2025 11:00 AM EST Medication Management [facility] MED & PEDS 505 [place] [address] Lisa Carney PharmD 230 [place] [address] 10/12/2025 2:30 PM EST Office Visit [facility] MED & PEDS [address] [place] [address] Irish Sepulveda FNP 505 [place] [address] documented as of this encounter Visit Diagnoses Not on filedocumented in this encounter Additional Health Concerns Assessment Noted Time PHQ-9 Depression Total Score: 10 023 11:21 AM EST documented as of this encounter Care Teams Kennel Manager Relationship Specialty Start Date End Date Irish Sepulveda FNP [address] [place] [address] PCP - General Family Medicine 11/12/21 Lisa Carney, Stephanie [address] [place] [address] Pharmacist Pharmacy 05/28/25 documented as of this encounter
--- OUTSIDE RECORDS SUMMARY | 2025-07-30 13:20 | XMS_ITS | Encounter Summary ---
Author Organization [employer] Address [address] [place] [address] 7 [place] [address] Care Team Providers Care Sugar Cane Planter Name Role Phone Irish Sepulveda Primary Care Provider Lisa Carney PharmD Unavailable [phone] Reason for Visit * Reason Onset Date Comments Med Refill 10/13/2024 Encounter Details Date Type Department Care Team ([facility] st Contact Info) Description 10/13/2024 Telephone [facility] MED & PEDS [address] [place], [place] [phone] Irish Sepulveda FNP 505 [place], [place] [phone] Med Refill Social History Tobacco Use Types [...] the past 12 months, has t he [employer] gas, oil or water company threatened to [...] 40 MG tablet To be sent to: [facility] - [place], [place] - [address] documented in this encounter Plan of Treatment Upcoming Encounters Date Type Department Care Team (Late st Contact Info) Description 08/02/2025 1:00 PM EST Clinical Support [facility] DIABETES/NTRN [address] [place] [address] Melony Herrera, RD 230 [place], [place] [phone] 08/21/2025 11:30 AM EST Office Visit [facility] MED & PEDS 505 [place] [address] Castillo Calles MD 505 [place] [address] 10/02/2025 11:00 AM EST Medication Management [facility] MED & PEDS [address] [place] [address] Lisa Carney PharmD 230 [place] [address] 10/12/2025 2:30 PM EST Office Visit [facility] MED & PEDS [address] [place] [address] Irish Sepulveda FNP [address] [place] [address] documented as of this encounter Visit Diagnoses Not on filedocumented in this encounter Additional Health Concerns Assessment Noted Time PHQ-9 Depression Total Score: 14 024 1:30 PM EDT documented as of this encounter Care Teams Sugar Cane Planter Relationship Specialty Start Date End Date Irish Sepulveda FNP 230 [place] [address] PCP - General Family Medicine 11/12/21 Lisa Carney PharmD 230 [place] [address] Pharmacist Pharmacy 05/28/25 documented as of this encounter
--- NOTE | 2025-08-09 14:50 | HO.ANESPROP2 ---
Documented by User: Madonna Zhou NP 08/09/25 15:08 HPI - Anesthesia Eval Consult details Narrative: 40yo F for Cholecystectomy Laparoscopic,possible open OUD: suboxone vs sublocade PMFSH Active Problems Active Problems: All Active Problems MACARIO (nonalcoholic steatohepatitis) (Acute) Pre-op examination (Acute) Biliary dyskinesia (Acute) Chronic idiopathic constipation (Acute) Chronic abdominal pain (Acute) Abnormal biliary HIDA scan (Acute) Acalculous cholecystitis (Acute) Nausea and vomiting (Acute) Goiter (Acute) PTSD (post-traumatic stress disorder) (Acute) Anxiety (Acute) Smoker (Acute) Neuropathic pain (Acute) Migraines (Acute) GERD (gastroesophageal reflux disease) (Acute) Opioid use disorder (Acute) Chronic hepatitis C (Acute) Obesity (BMI 30-39.9) (Acute) Asthma (Acute) Past Medical History Medical History Kidney failure Liver failure Diabetes Hx of drainage of abscess Biliary dyskinesia Chronic abdominal pain Abnormal biliary HIDA scan Asthma Chronic hepatitis C Nausea and vomiting Goiter Obesity (BMI 30-39.9) Opioid use disorder Anxiety Family History Family History Paternal Grandfather Lung cancer Prostate cancer Paternal Grandmother Lung cancer Paternal Uncle Prostate cancer Paternal Uncle Lung cancer Surgical History Surgical History History of section Social History Social History Alcohol intake: current Alcohol intake frequency: holidays/special occasions only Alcohol type: wine Patient Tobacco Use Status: Current everyday Tobacco user Tobacco use type: Cigarette Cigarette Packs Per Day: 0.5 Cigarettes Per Day: 10.0 Use of substances other than those prescribed or required for medical reasons: Yes Substance Use Type: Marijuana Advance Directives: No Advance Directives Information Provided: Yes Meds Allergies Allergy/AdvReac Type Severity Reaction Status Date / Time Heparin Analogues (Heparin Allergy Intermediate HIVES Unverified 04/26/25 13:58 Agents) codeine (CODEINE) Allergy Mild HIVES Unverified 04/26/25 13:58 Home Medications ?Medication ?Instructions ?Recorded ?Confirmed ?Last Taken ?Type buspirone 15 mg tablet 15 mg PO BID 12/13/24 08/10/25 Unknown History dextroamphetamine-amphetamine ER 1 cap PO DAILY 12/13/24 08/10/25 Unknown History 30 mg 24hr capsule,extend release (Adderall XR) gabapentin 300 mg capsule 300 mg PO BID 12/13/24 08/10/25 Unknown History norethindrone acetate 5 mg tablet 10 mg PO DAILY 12/13/24 08/10/25 Unknown History propranolol 60 mg capsule,24 See Rx Instructions PO BID 12/13/24 08/10/25 08/14/25 History hr,extended release quetiapine 100 mg tablet (Seroquel) 100 mg PO DAILY 12/13/24 08/10/25 Unknown History metformin 500 mg tablet 1,000 mg PO BID 04/26/25 08/10/25 Unknown History buprenorphine 100 mg/0.5 mL 100 mg subcut QMONTH 06/20/25 08/01/25 History solution,exten.rel.subcutaneous syringe (Sublocade) albuterol sulfate 90 mcg/actuation 2 puff inhalation Q4-6H PRN 08/10/25 08/10/25 Unknown History aerosol inhaler (Ventolin HFA) Shortness Of Breath Or Wheezing empagliflozin 10 mg tablet 10 mg PO DAILY 08/10/25 08/14/25 08/10/25 History (Jardiance) insulin glargine 100 unit/mL (3 16 unit subcut QAM 08/10/25 08/10/25 Unknown History mL) subcutaneous pen (Lantus Solostar U-100 Insulin) Exam Pertinent Lab Results Pertinent Lab Results: A1C = 7.2 06/2025 at PCP Assessment and Plan Assessment Anesthesia Assessment: Chart Reviewed Documented by User: Steven Madison MD 08/14/25 10:18 [facility] Past Medical History Medical History Kidney failure Liver failure Diabetes Hx of drainage of abscess Biliary dyskinesia Chronic abdominal pain Abnormal biliary HIDA scan Asthma Chronic hepatitis C Nausea and vomiting Goiter Obesity (BMI 30-39.9) Opioid use disorder Anxiety Family History Family History Paternal Grandfather Lung cancer Prostate cancer Paternal Grandmother Lung cancer Paternal Uncle Prostate cancer Paternal Uncle Lung cancer Family history of problems with anesthesia: No Surgical History Surgical History History of section History of Problems with Anesthesia: Unobtainable Social History Social History Alcohol intake: current Alcohol intake frequency: holidays/special occasions only Alcohol type: wine Patient Tobacco Use Status: Current everyday Tobacco user Tobacco use type: Cigarette Cigarette Packs Per Day: 0.5 Cigarettes Per Day: 10.0 Use of substances other than those prescribed or required for medical reasons: Yes Substance Use Type: Marijuana Advance Directives: No Advance Directives Information Provided: Yes Meds Allergies Allergy/AdvReac Type Severity Reaction Status Date / Time Heparin Analogues (Heparin Allergy Intermediate HIVES Unverified 04/26/25 13:58 Agents) codeine (CODEINE) Allergy Mild HIVES Unverified 04/26/25 13:58 Home Medications ?Medication ?Instructions ?Recorded ?Confirmed ?Last Taken ?Type buspirone 15 mg tablet 15 mg PO BID 12/13/24 08/10/25 Unknown History dextroamphetamine-amphetamine ER 1 cap PO DAILY 12/13/24 08/10/25 Unknown History 30 mg 24hr capsule,extend release (Adderall XR) gabapentin 300 mg capsule 300 mg PO BID 12/13/24 08/10/25 Unknown History norethindrone acetate 5 mg tablet 10 mg PO DAILY 12/13/24 08/10/25 Unknown History propranolol 60 mg capsule,24 See Rx Instructions PO BID 12/13/24 08/10/25 08/14/25 History hr,extended release quetiapine 100 mg tablet (Seroquel) 100 mg PO DAILY 12/13/24 08/10/25 Unknown History metformin 500 mg tablet 1,000 mg PO BID 04/26/25 08/10/25 Unknown History buprenorphine 100 mg/0.5 mL 100 mg subcut QMONTH 06/20/25 08/01/25 History solution,exten.rel.subcutaneous syringe (Sublocade) albuterol sulfate 90 mcg/actuation 2 puff inhalation Q4-6H PRN 08/10/25 08/10/25 Unknown History aerosol inhaler (Ventolin HFA) Shortness Of Breath Or Wheezing empagliflozin 10 mg tablet 10 mg PO DAILY 08/10/25 08/14/25 08/10/25 History (Jardiance) insulin glargine 100 unit/mL (3 16 unit subcut QAM 08/10/25 08/10/25 Unknown History mL) subcutaneous pen (Lantus Solostar U-100 Insulin) Exam Exam Date and Time: 08/14/2025 Airway Mallampati Class: II TM Dist: >3cm Neck ROM: Full Loose/Missing/Broken Teeth: No Heart: rrr Lungs: ctab vesicular Assessment and Plan Assessment Anesthesia Assessment: Anesthesia Plan Discussed and Smoking Cess. Discussed Final Anesthetic Review Family History of Problems with Anesthesia: No History of Problems with Anesthesia: Unobtainable NPO: Yes ASA Class: II Final Preanesthetic Review: No Changes in Pt Med Stat, Meds/Allgs Chart Reviewed, Consent Obtained/Reviewed and Anes Risks/Benef Reviewed Patient Risk: Low Procedure Risk: Low Anesthetic Plan Anesthetic Plan: GA Disposition: Standard PACU
[2025-08-10 12:16] VITALS: BMI 36.2
[2025-08-14] VITALS (8 sets, daily range): BP systolic 105–147; BP diastolic 69–85; PULSE 60–89; RESP 14–16; TEMP 36.2–36.8; O2SAT 94–99; BMI 33.9
[2025-08-14 09:46] LABS: UPreg QC Valid YES
--- NOTE | 2025-08-14 09:51 | MHC.SHP ---
Pre-Procedural Eval Section A - 24 Hr Update-Section A only Date of Service: 08/14/25 Section B - Complete if H&P > 30 days Chief Complaint: Other specified diseases of gallbladder Details of Present Illness: has had frequent abdominal pain, with note of poor ejection fraction HIDA scan, wants to proceed with cholecystectomy Relevant Family History (Specify if Yes): No Relevant Social History: None Present Medications: see Short Stay Collaborative assessment Medical History: Significant History (PTSD, chronic constipation, opioid use disorder, high BMI, asthma) Allergies: Allergies Allergy/AdvReac Type Severity Reaction Status Date / Time Heparin Analogues (Heparin Allergy Intermediate HIVES Unverified 04/26/25 13:58 Agents) codeine (CODEINE) Allergy Mild HIVES Unverified 04/26/25 13:58 Review of Systems Sugical H&P ROS: Negative: Constitution, Cardiovascular, Respiratory and Gastrointestinal Exam Surgical H&P Exam: Normal: Heart, Normal: Lungs and Normal: Abdomen Plan Diagnosis/Plan: Unchanged I have reviewed the history and physical and performed a pertinent physical examination on my patient. No changes have occurred unless specified. Time Spent With Patient Time: Total time managing care of this patient today ____ minutes.
[2025-08-14 09:54] LABS: Cannabinoid Screen Urine POSITIVE (Not Detect)
[2025-08-14 09:59] LABS: Glucose, Whole Blood 220 mg/dL (60-115)
[2025-08-14] MEDS: Lactated Ringers 1,000 ML 100 ML IVCONT (10:18)
--- NOTE | 2025-08-14 11:45 | P.OP_ITS ---
Operative Note Operative Note Date of Service: 08/14/25 Narrative: Preop diagnosis: Biliary dyskinesia Postop diagnosis: The same Procedure: Laparoscopic cholecystectomy Surgeon: Faisal Rucker MD central supply assistant: JERRY Lucero The patient is a 40 year old female with chronic abdominal pain, with a HIDA scan showing an ejection fraction of 2%. In view of her chronic abdominal pain, she wanted to proceed with cholecystectomy. She understood the technique of the planned procedure as well as the risks, benefits, and alternatives. She was brought to the operating room and placed supine under general anesthesia via endotracheal tube. The abdomen was prepped and draped in the usual sterile fashion. A surgical time-out was done. The patient received Cefotan 2 g IV preoperatively. The patient had admittedly smoking marijuana earlier this morning so the proce dure was delayed a little bit. I made a short incision on the supraumbilical area using blade 15. This was carried down through the full-thickness of the skin and thick subcutaneous fat to the fascia. The fascia was incised. The peritoneum was entered. Through this incision a Bedolla port was introduced pneumoperitoneum was introduced to a pressure of 15 mm Hg. From here on the rest of procedure was done under vision with the 10 mm flat laparoscope. With laparoscopic visualization, I inserted a 5/12 mm port in the epigastric area. Two 5 mm ports introduced a small incision below the subcostal margin along the anterior axillary line and the midclavicular line. Graspers were placed through these working ports. The patient was placed in a head up and [id number] position The gallbladder was seen. This was supple and nondistended without any signs of inflammation . I was able to apply a grasper at the fundus to retract this cephalad. I proceeded to apply another grasper towards the pouch of the gallbladder to retract this laterally. At this point the gallbladder was being retracted in a cephalad and lateral fashion to put the area of the cystic duct on stretch. I carefully dissected the neck of the gallbladder using the Maryland dissector to tease off the peritoneal lining and by doing so I was able to visualize the cystic duct. With continued dissection using the Maryland dissector, I was able to visualize the cystic duct and its confluence with the neck of the gallbladder. The cystic artery was also seen running alongside this. We had achieved a critical view of the hepatocystic triangle at this point. I therefore applied clips on the cystic duct with 2 clips being applied distally. The cystic duct was transected between clips with Endo scissors. I applied clips on the cystic artery with 2 clips applied distally. The cystic artery was transected with the clips with Endo scissors as well. With traction on the gallbladder away from the liver bed I proceeded to then carefully divide the hilum with the electrocautery spatula. I incised the peritoneum of the gallbladder to create a plane of dissection between the gallbladder wall and the liver bed. I developed this plane of dissection with a combination of blunt dissection with the tip of the hook cautery sas well as electrocautery itself until the entire gallbladder was completely from the liver bed. The gallbladder was retrieved through an endobag through the umbilical incision. I reinserted all ports and re-insufflated. I had to do cauterization of some oozing areas in the liver bed. I observed all 4 quadrants and there was no other pathology seen. There was no evidence of any bowel injury or bile leak. I irrigated and suctioned gone irrigant fluid. Once hemostasis was confirmed, we desufflated through the port sites. The ports were removed, with the umbilical port removed last. The fascia of the umbilical incision was closed with a [id number] Polysorb 0 stitch. Skin closure was achieved on all incisions using Polysorb 4-0 subcuticular running sutures. All incisions were infiltrated with Marcaine 0.5% for postop analgesia. Steri-Strips and dressings were applied and the procedure was completed. The patient tolerated the procedure well. There were no immediate complications. Initial and final counts of sponges and instruments were correct. Estimated blood loss was about 25 cc. The patient was extubated without difficulty and transferred to the recovery room with stable vital signs.
[2025-08-14 11:58] LABS: Glucose, Whole Blood 215 mg/dL (60-115)
== END 2025-08-14 13:08 | disposition home or self-care (01) ==
PROVIDERS: Nurse Practitioner; PCP Registered Nurse; Visit Provider Surgery
PROC: 0FT44ZZ Resection of Gallbladder, Percutaneous Endoscopic Approach (ICD-10-PCS; CPT 47562; principal; 2025-08-14 10:20)
DX: K80.10 Calculus of gallbladder with chronic cholecystitis without obstruction (principal); R10.11 Right upper quadrant pain; G89.29 Other chronic pain; R11.2 Nausea with vomiting, unspecified; F12.90 Cannabis use, unspecified, uncomplicated; B18.2 Chronic viral hepatitis C; J45.909 Unspecified asthma, uncomplicated; R63.4 Abnormal weight loss; Z68.36 Body mass index [BMI] 36.0-36.9, adult; F41.9 Anxiety disorder, unspecified; F11.90 Opioid use, unspecified, uncomplicated; E04.9 Nontoxic goiter, unspecified; Z88.5 Allergy status to narcotic agent; Z88.8 Allergy status to other drugs, medicaments and biological substances
CPT/HCPCS: 47562; 80307; 81025; 82947; 88304; 88312; J0131; J0525; J1100; J1171; J1200; J1885; J2003; J2250; J2405; J2704; J2795; J3010

== ENCOUNTER → 2025-08-14 09:08 | Outpatient (BNV) | payer MEDICAID, SELFPAY | PROVIDERS: PCP Registered Nurse; Visit Provider Surgery | DX: K82.8 Other specified diseases of gallbladder (principal) | CPT/HCPCS: 47562 ==

== ENCOUNTER 2025-08-28 09:50 | Outpatient (AMB) | payer MEDICAID, SELFPAY ==
[2025-08-28 09:56] VITALS: BP 101/61; PULSE 62; RESP 15; TEMP 36.1; O2SAT 97; BMI 33.4
--- NOTE | 2025-08-28 09:56 | A.OFFVIS_ITS ---
Vital Signs 08/28/25 09:56 Height 5 ft 2 in Weight 182 lb 8.684 oz BMI 33.4 BP 101/61 Blood Pressure Location Rt brachial Position Sitting Respiration 15 Pulse 62 Pulse Source Pulse Oximeter Temp 97.0 F Temp Source Temporal Artery Scan Pulse Oximetry (%) 97 Oxygen Delivery Method Room Air Intake Visit Reasons: s/p lap timmy poss open Instrumentation Technologist Required: No Accompanied by: Significant Other Allergies Heparin Analogues (Heparin Agents) Allergy (Intermediate, Verified 08/28/25 09:59) HIVES codeine (CODEINE) Allergy (Mild, Verified 08/28/25 09:59) HIVES HPI HPI s/p lap timmy poss open: Details: Doing well, no concerns. Initially had some pain there she is postop but well controlled with ibuprofen. Now denies significant pain, occasionally gets some pain at the umbilical site but again is controlled well with [id number] medications. Denies issues related ambulation, has been avoiding heavy lifting her partner has been helping her on the house. Denies nausea vomiting. No issues with bowel function. Appetite is good. Denies fevers at home [facility] Medical History Kidney failure Liver failure Diabetes Hx of drainage of abscess Biliary dyskinesia Chronic abdominal pain Abnormal biliary HIDA scan Asthma Chronic hepatitis C Nausea and vomiting Goiter Obesity (BMI 30-39.9) Opioid use disorder Anxiety Surgical History History of laparoscopic cholecystectomy (~08/14/25) History of section Family History Paternal Grandfather Lung cancer Prostate cancer Paternal Grandmother Lung cancer Paternal Uncle Prostate cancer Paternal Uncle Lung cancer Social History Alcohol intake: current Alcohol intake frequency: holidays/special occasions only Alcohol type: wine Comment: counts correct Patient Tobacco Use Status: Current everyday Tobacco user Tobacco use type: Cigarette Cigarette Packs Per Day: 0.5 Cigarettes Per Day: 10.0 Substance Use Type: Marijuana Review of Systems Const Denies daytime sleepiness, Denies difficulty sleeping, Denies snoring, Denies stops breathing during sleep and Denies weakness Card Denies chest pain, Denies rapid heart rate, Denies irregular heart rhythm, Denies claudication, Denies leg edema, Denies lightheadedness, Denies palpitations, Denies dyspnea, Denies dyspnea on exertion, Denies orthopnea, Denies paroxysmal nocturnal dyspnea and Denies slow heart rate Resp Denies cough, Denies dyspnea, Denies dyspnea on exertion and Denies snoring GI Reports no additional complaints, Denies hematochezia, Denies change in stool character and Denies dyspepsia Musc Denies abnormal gait, Denies muscle weakness and Denies numbness Neuro Denies abnormal gait, Denies numbness and Denies weakness Endo Denies palpitations Physical Exam Vital Signs: Last Vital Signs Temp 97.0 F 08/28/25 09:56 Pulse 62 08/28/25 09:56 Resp 15 08/28/25 09:56 BP 101/61 08/28/25 09:56 Pulse Ox 97 08/28/25 09:56 Oxygen Delivery Method Room Air 08/28/25 09:56 BMI result Body Mass Index 33.4 Const General: comfortable and no acute distress Orientation/consciousness: patient oriented x3 Resp Effort & Inspection: normal respiratory effort and able to speak in complete sentences GI Other: Incision sites healing, some small scabs on right upper quadrant port sites. Very mild ecchymosis surrounding umbilical incision site. Appear intact, no erythema, no fluid collection Inspection: No distended Palpation (GI): Soft to palpation and nontender Neuro General: patient oriented x3 Assessment & Plan Assessment & Plan (1) S/P laparoscopic cholecystectomy: Code(s): Z90.49 - Acquired absence of other specified parts of digestive tract Category: Medical Plan 40-year-old female s/p laparoscopic cholecystectomy with Dr. Rucker as 08/14/2025 returning to the office for follow-up. She is doing well, has no concerns. Has some very mild soreness at the umbilical site which is well controlled with [id number] medications. She has been avoiding heavy l ifting. Diet bowel function at baseline. Denies fevers or chills. On exam abdomen is soft and benign, incision sites appear to be healing well there is some mild scabbing and port sites, advised her not to take these off. Otherwise is no suggestion of infection related to the surgical site. We will continue with activity restrictions no heavy lifting greater than 15 20 lb for 1 more week. After that recommended that she start slowly and return to her baseline level activity. Surgical pathology showing chronic cholecystitis. No longer requiring follow-up, can follow up as needed with any concerns in the future. Coding Level of Care Code Global (42899) Diagnoses S/P laparoscopic cholecystectomy Z90.49
== END 2025-08-28 10:21 | disposition home or self-care (01) ==
LOC: HO.HGS 09:51
PROVIDERS: PCP Registered Nurse
DX: Z90.49 Acquired absence of other specified parts of digestive tract (principal)
CPT/HCPCS: 99024

== ENCOUNTER → 2025-08-28 09:50 | Outpatient (BNVA) | payer MEDICAID, SELFPAY | PROVIDERS: PCP Registered Nurse | DX: Z48.815 Encounter for surgical aftercare following surgery on the digestive system (principal); Z90.49 Acquired absence of other specified parts of digestive tract | CPT/HCPCS: 99212 ==